=== PATIENT | female | born 1955 | race Asian ===

== ENCOUNTER 2018-12-31 11:52 | Emergency (ER) | payer BC ==
[~2018-12-31] VITALS: Ht 154.9 cm; Wt 49.4 kg
[2018-12-31 12:01] VITALS: Ht 154.9 cm; Wt 49.4 kg
[2018-12-31 13:28] LABS: PLATELET COUNT 313 x10^3mcL (130-400)
[2018-12-31 13:47] LABS: ALBUMIN 3.4 g/dL (3.4-5.0); ALKALINE PHOSPHATASE 120 U/L (46-116); ALT/SGPT 16 U/L (14-59); AST/SGOT 10 U/L (15-37); BILIRUBIN TOTAL 0.6 mg/dL (0.20-1.00); C REACTIVE PROTEIN 11.2 mg/dL (<=0.9); CALCIUM 8.4 mg/dL (8.5-10.1); CARBON DIOXIDE 20.8 mmol/L (21-32); CHLORIDE SERUM 96 mmol/L (98-107); CREATININE SERUM 0.7 mg/dL (0.6-1.0); GFR1 > 60 mL/min; GLUCOSE SERUM 248 mg/dL (74-106); SODIUM SERUM 134 mmol/L (136-145); TOTAL PROTEIN, SERUM 7.5 g/dL (6.4-8.2)
[2018-12-31 13:48] LABS: BASOPHIL % 0 % (0-2); RED CELL DISTRIBUTION WIDTH 15.9 % (11.5-14.5)
[2018-12-31 13:52] LABS: FREE T4 1.41 ng/dL (0.76-1.46); FREE THYROXINE INDEX 3.9 ug/dL (1.4-4.5); T4(THYROXINE) 9.9 ug/dL (4.7-13.3)
[2018-12-31 13:56] LABS: CK-MB 0.5 ng/mL (0-3.6)
[2018-12-31 14:06] LABS: T3 TOTAL 0.65 ng/mL
[2018-12-31 16:03] LABS: ERYTHROCYTE SED RATE 29 mm/hr (0-30)
[2018-12-31 16:21] LABS: microscopic required? NO
[2018-12-31 17:00] LABS: UA SPECIFIC GRAVITY 1.025 (1.005-1.035); urine erythrocyte NEGATIVE (NEGATIVE)
[2018-12-31 18:03] VITALS: BP 128/69
== END 2018-12-31 18:03 | disposition home or self-care (01) ==
LOC: ED 11:52
PROVIDERS: Specialist
DX: R11.2 Nausea with vomiting, unspecified (principal); R19.7 Diarrhea, unspecified; E86.0 Dehydration; E87.6 Hypokalemia; I10 Essential (primary) hypertension; E11.9 Type 2 diabetes mellitus without complications; Z88.6 Allergy status to analgesic agent
CPT/HCPCS: 36600; 84439; 87804; J2550; J3480; J7030; J7050; Q0092

== ENCOUNTER 2019-01-03 04:56 | Inpatient (IN) | payer BC ==
[~2019-01-03] VITALS: Ht 154.9 cm; Wt 49.5 kg
--- NOTE | 2019-01-03 05:27 | NUR ---
PT CAME TO THE ED TODAY WITH C/O VOMITING, PT WAS SEEN IN THIS ED ON TUESDAY FOR VOMITING ALSO. PT STATES THAT SHE IS USING HER ZOFRAN AT HOME BUT IS UNABLE TO TOLERATE FOOD. PT IS ALERT AND AMBULATORY. WILL MONITOR.
[2019-01-03 06:53] LABS: PLATELET COUNT 348 x10^3mcL (130-400)
[2019-01-03 07:12] LABS: ALKALINE PHOSPHATASE 107 U/L (46-116); ALT/SGPT 18 U/L (14-59); AST/SGOT 10 U/L (15-37); BILIRUBIN TOTAL 0.45 mg/dL (0.20-1.00); CALCIUM 8.5 mg/dL (8.5-10.1); CHLORIDE SERUM 102 mmol/L (98-107); CREATININE SERUM 0.8 mg/dL (0.6-1.0); GFR1 > 60 mL/min; GLUCOSE SERUM 326 mg/dL (74-106); POTASSIUM SERUM 3.2 mmol/L (3.5-5.1); SODIUM SERUM 137 mmol/L (136-145)
[2019-01-03 07:27] LABS: ALBUMIN 3.2 g/dL (3.4-5.0)
[2019-01-03 07:30] LABS: BASOPHIL % 0 % (0-2); RED CELL DISTRIBUTION WIDTH 17.1 % (11.5-14.5)
--- NOTE | 2019-01-03 07:30 | NUR ---
ASSUMED PATIENT CARE. CONCUR TO PRIOR NURSING ASSESSMENTS. STARTED ON CARDIAC MONITORING, ENFORCED SAFETY PRECAUTIONS, FAMILY AT BEDSIDE. UPDATED THEM OF PLAN OF CARE AND STATUS OF TREATMENT.
[2019-01-03 07:36] LABS: CARBON DIOXIDE 7.8 mmol/L (21-32)
[2019-01-03 08:54] LABS: FREE T4 1.09 ng/dL (0.76-1.46); FREE THYROXINE INDEX 2.8 ug/dL (1.4-4.5)
[2019-01-03 09:10] LABS: T3 TOTAL 0.44 ng/mL
--- NOTE | 2019-01-03 09:53 | NUR ---
DISPO AND MEDICAL DECISION MAKING, INPATIENT ADMISSION FOR FURTHER MANAGEMENT. PATIENT CARE REPORT ENDORSED TO RADHA DILL. CONTINUITY OF CARE ENDORSED. PATIENT UPDATED ACCORDINGLY.
--- NOTE | 2019-01-03 10:15 | NUR ---
PATIENT BROUGHT IN BY NURSE AND EMT, FROM ER, VIA GURNEY. PATIENT IS BREATHING ADEQUATELY AND THERE ARE NO SIGNS OF RESPIRATORY DISTRESS. ELECTRON BEAM PHOTO MASK MAKER IN PLACE, NSR. ABDOMEN IS ROUND AND SOFT. PATIENT HASN'T HAD A BM, SINCE LAST NIGHT. PATIENT IS ABLE TO GET UP AND USE THE RESTROOM WITH ASSISTANCE. R AC AND R HAND IVS ARE INTACT. SKIN IS INTACT. V/S: HR: 96 RESP.: 16 TEMP: 98.4 B/P: 157/75 MAP: 104 O2: 100% PATIENT IS CALM AND COOPERATIVE. CALL LIGHT WITHIN REACH, WILL CONTINUE TO MONITOR.
--- NOTE | 2019-01-03 11:00 | NUR ---
ASSISTED PATIENT UP TO USE THE RESTROOM. NO PROBLEMS NOTED, WILL CONT TO MONITOR.
--- NOTE | 2019-01-03 11:02 | NUR ---
PATIENTS BLOOD SUGAR: 190. PER PROTOCOL, CHANGED PATIENT TO D5 1/2 NS AT 150 ML/HR AND LOWERED INSULIN DRIP TO 0.05 UNITS/KG/HR. PATIENT STABLE, WILL CONTINUE TO MONITOR.
--- NOTE | 2019-01-03 11:52 | NUR ---
PATIENTS B/S: 234. TURNED OFF D5 1/2 NS AND INCREASED INSULIN TO 0.1 UNITS/KG/HR. PATIENT STABLE WILL CONTINUE TO MONITOR.
[2019-01-03 12:12] VITALS: BP 157/75
[2019-01-03 12:52] VITALS: BP 148/73
[2019-01-03 12:52] LABS: CALCIUM 7.7 mg/dL (8.5-10.1); CARBON DIOXIDE 13.3 mmol/L (21-32); CHLORIDE SERUM 109 mmol/L (98-107); CREATININE SERUM 0.6 mg/dL (0.6-1.0); GFR1 > 60 mL/min; GLUCOSE SERUM 226 mg/dL (74-106); POTASSIUM SERUM 3.1 mmol/L (3.5-5.1); SODIUM SERUM 141 mmol/L (136-145)
--- NOTE | 2019-01-03 14:06 | NUR ---
PATIENT B/S: 190. LOWERED INSULIN TO 0.05 UNITS/KG/HR. AND TURNED ON D5 1/2 NS, RUNNING AT 150 ML/HR. PATIENT STABLEM CALL LIGHT WITHIN REACH, WILL CONTINUE TO MONITOR.
--- NOTE | 2019-01-03 14:12 | NUR ---
ASSISTED PATIENT UP TO USE THE RESTROOM. NO PROBLEMS NOTED, WILL CONT TO MONITOR.
--- NOTE | 2019-01-03 14:56 | NUR ---
PATIENTS B/S: 203. STOPPED D5 1/2 NS AND INCREASED INSULIN TO 0.1 UNITS/KG/HR. PATIENT STABLE, WILL CONT TO MONITOR.
[2019-01-03 15:30] VITALS: BP 147/68
--- NOTE | 2019-01-03 15:57 | NUR ---
PATIENTS B/S: 191. LOWERED INSULIN TO 0.05 UNITS/KG/HR, PER PROTOCOL. AND D5 1/2 NS INFUSING AT 100 ML/HR. PATIENT STABLE, WILL CONT TO MONITOR.
[2019-01-03 16:14] LABS: CALCIUM 7.6 mg/dL (8.5-10.1); CARBON DIOXIDE 16.3 mmol/L (21-32); CHLORIDE SERUM 109 mmol/L (98-107); CREATININE SERUM 0.7 mg/dL (0.6-1.0); GFR1 > 60 mL/min; GLUCOSE SERUM 190 mg/dL (74-106); MAGNESIUM 1.9 mg/dL (1.8-2.4); SODIUM SERUM 143 mmol/L (136-145)
[2019-01-03 16:55] LABS: PHOSPHOROUS 0.5 mg/dL (2.5-4.9); POTASSIUM SERUM 2.4 mmol/L (3.5-5.1)
--- NOTE | 2019-01-03 16:57 | NUR ---
PATIENTS B/S: 202. INCREASED INSULIN TO 0.1 UNITS/KG/HR. PATIENT STABLE, WILL CONT TO MONITOR. PATIENT ALSO NEEDED TO VOID. ASSISTED PATIENT UP TO VOID.
--- NOTE | 2019-01-03 17:12 | NUR ---
CALLED AYANNA ENGLAND TO INFORM THAT PATIENTS RECENT LAB. K: 2.4 AND PHOS.: 0.5. PER SAMANTA, LET THE CURRENT POTASSIUM FINISH AND WHEN FINISHED, GIVEN 40 MEQ OF POTASSIUM WITH LIDOCAINE. ALSO GIVE 30MMOL OF PHOSPHORUS, NOW.
--- NOTE | 2019-01-03 17:40 | NUR ---
SPOKE WITH SAMANTA, TRANSIT COACH OPERATOR, REGARDING PHARMACIST RECOMMENDATION OF DOING LAB DRAW AFTER PHOSPHORUS IV. SAMANTA STATES " FINISH K RIDER, HAVE LAB DRAWN, START PHOSPHORUS, AND NOTIFY HER OF POTASSIUM LAB, WHEN RECEIVED" FURTHER ORDERS WILL BE GIVEN THEN.
--- NOTE | 2019-01-03 17:49 | NUR ---
PATIENTS B/S: 161, DECREASED INSULIN DRIP TO 0.05 UNITS/KG/HR. INCREASED D5 1/2 NS TO 150 ML/HR. PATIENT STABLE, WILL CONT TO MONITOR.
--- NOTE | 2019-01-03 18:48 | NUR ---
PATIENTS B/S: 212. INCREASED INSULIN TO 0.1 UNITS/KG/HR, D5 1/2 NS OFF PER PROTOCOL. PT STABLE, WILL CONT. TO MONIOTR.
--- NOTE | 2019-01-03 19:03 | NUR ---
ASSISTED PATIENT UP TO URINATE. PATIENT VOMITTED ON THE FLOOR. PATIENT VOMMITED GREEN WATERY VOMIT. PATIENT ALSO URINATED A FAIR AMT OF YELLOW URINE. PATIENT WAS ASSISTED IN BED, SAFELY. PATIENT STABLE. WILL CONT. TO MONITOR.
--- NOTE | 2019-01-03 19:13 | NUR ---
REPORT GIVEN TO RADHA VARGAS. ALL QUESTIONS ANSWERED.
--- NOTE | 2019-01-03 19:14 | NUR ---
RECEIVED REPORT FROM DEEPA GARCIA. ASSUMING ALL CARE
--- NOTE | 2019-01-03 19:30 | NUR ---
RECEIVED PT LAYING IN BED. PT IS A/OX4. SPEECH IS CLEAR. ABLE TO MAKE NEEDS KNOWN. PERRLA NOTED BILAT. EENT FREE OF DISCHARGE. ORAL MUCOSA PINK AND MOIST. BREATHING IS E/U ON RA. LUNGS SOUND CLEAR BILAT. SYMMETRICAL CHEST EXPANSION NOTED. S1/S2 HEART SOUNDS AUSCULTATED. CHEST WALL EQUAL AND SYMMETRICAL. DENIES CP HR 87, BP 160/85 MAP 110. PALPABLE PULSES X4 EXTREMITIES. SKIN IS WARM AND DRY. TRACE EDEMA NOTED TO BLE. CAP REFILL < 3 SECS. RH AND RAC IV'S INTACT/SECURED, NO S/S OF INFITLRATION NOTED. INSULIN DRIP INFUSING @ 0.1 UNITS/KG/HR. PT IS NPO AT THIS TIME. PT C/O FEELING NAUSEAS. ABD IS SOFT, ROUND, NONTENDER TO PALPATION. BOWEL SOUNDS ACTIVE X4 QUADRANT. SKIN IS INTACT. PT ABLE TO REPOSITION SELF INDEPENDENTLY. PT IS CALM AT THIS TIME. FAMILY AT BEDSIDE. BED IN LOW POSITION. CALL LIGHT IN REACH. WILL CONT TO MONITOR
--- NOTE | 2019-01-03 19:36 | NUR ---
BS 168. INSULIN DRIP TITRATED TO 0.05 UNITS/KG/HR AND D5 1/2NS RESUMED @ 50 ML/HR
--- NOTE | 2019-01-03 19:36 | NUR ---
PT C/O FEELING NAUSEAS. PT MEDICATED WITH ZOFRAN 4 MG IVP PER EMAR. WILL CONT TO MONITOR
[2019-01-03 19:48] VITALS: BP 160/85
[2019-01-03 20:26] LABS: CARBON DIOXIDE 23.2 mmol/L (21-32); CHLORIDE SERUM 109 mmol/L (98-107); CREATININE SERUM 0.6 mg/dL (0.6-1.0); GFR1 > 60 mL/min; GLUCOSE SERUM 172 mg/dL (74-106); SODIUM SERUM 142 mmol/L (136-145)
[2019-01-03 20:52] LABS: PHOSPHOROUS 0.6 mg/dL (2.5-4.9)
[2019-01-03 20:53] LABS: POTASSIUM SERUM 2.8 mmol/L (3.5-5.1)
--- NOTE | 2019-01-03 21:15 | NUR ---
CRITICAL LAB RESULT- POTASSIUM 2.8, PHOS 0.6. DR. YAO MADE AWARE
--- NOTE | 2019-01-03 22:18 | NUR ---
BS 149. D5 1/2 NS TITRATED TO 100 ML/HR
--- NOTE | 2019-01-03 22:30 | NUR ---
DR. YAO MADE AWARE PT WAS MEDICATED WITH ZOFRAN AND IS STILL FEELING NAUSEAS AND VOMITING. AWARE POTASSIUM TABLET WAS NOT ADMINISTERED. PER DR. YAO, ADMINISTER THE K-RIDER AT THIS TIME. MADE AWARE POTASSIUM PHOSPHATE IS INFUSING AT THIS TIME, PER DR. YAO, OK TO HAVE BOTH INFUSING AT THE SAME TIME.
[2019-01-03 23:33] VITALS: BP 133/73
--- NOTE | 2019-01-03 23:48 | NUR ---
PYTHON WEB DEVELOPER AT BEDSIDE
--- NOTE | 2019-01-04 00:04 | NUR ---
BS 142. D5 1/2 NS TITRATED TO 150 ML/HR
[2019-01-04 00:23] LABS: CALCIUM 7.7 mg/dL (8.5-10.1); CHLORIDE SERUM 109 mmol/L (98-107); CREATININE SERUM 0.6 mg/dL (0.6-1.0); GFR1 > 60 mL/min; GLUCOSE SERUM 154 mg/dL (74-106); MAGNESIUM 1.9 mg/dL (1.8-2.4); PHOSPHOROUS 1.6 mg/dL (2.5-4.9); SODIUM SERUM 142 mmol/L (136-145)
[2019-01-04 00:24] LABS: POTASSIUM SERUM 2.8 mmol/L (3.5-5.1)
--- NOTE | 2019-01-04 01:31 | NUR ---
PT C/O FEELING NAUSEAS. PT MEDICATED WITH ZOFRAN 4 MG IVP PER EMAR
[2019-01-04 03:15] VITALS: BP 105/65
--- NOTE | 2019-01-04 03:30 | NUR ---
ASSISTED PT TO BSC, PT AMBULATED WITH A STEADY GAIT. PT VOIDED CLEAR YELLOW URINE. PT ASSISTED BACK IN BED AND CONNECTED TO FULL CLOTHES SHAKER
--- NOTE | 2019-01-04 04:07 | NUR ---
BS 207. D5 1/2 NS TITRATED TO 100 ML/HR
[2019-01-04 04:45] LABS: BASOPHIL % 0.2 % (0-2); PLATELET COUNT 321 x10^3mcL (130-400)
[2019-01-04 04:53] LABS: CALCIUM 7.7 mg/dL (8.5-10.1); CARBON DIOXIDE 22.4 mmol/L (21-32); CHLORIDE SERUM 109 mmol/L (98-107); CREATININE SERUM 0.5 mg/dL (0.6-1.0); GFR1 > 60 mL/min; GLUCOSE SERUM 204 mg/dL (74-106); MAGNESIUM 1.9 mg/dL (1.8-2.4); PHOSPHOROUS 1.1 mg/dL (2.5-4.9); SODIUM SERUM 142 mmol/L (136-145)
--- NOTE | 2019-01-04 05:01 | NUR ---
BS 254. D5 1/2NS TITRATED TO 50 ML/HR
[2019-01-04 05:02] LABS: RED CELL DISTRIBUTION WIDTH 17.5 % (11.5-14.5)
--- NOTE | 2019-01-04 06:07 | NUR ---
BS 231. D5 1/2NS TURNED OFF AT THIS TIME
--- NOTE | 2019-01-04 06:53 | NUR ---
PT MEDICATED WITH ZOFRAN IVP PER EMAR, PT C/O FEELING NAUSEAS
--- NOTE | 2019-01-04 06:59 | NUR ---
BS 133. D5 1/2 NS TITRATED TO 100 ML/HR
--- NOTE | 2019-01-04 07:05 | NUR ---
REPORT GIVEN TO DEEPA GARCIA. ENDORSING ALL CARE
--- NOTE | 2019-01-04 07:15 | NUR ---
REPORT GIVEN BY RADHA VARGAS. ALL QUESTIONS ANSWERED.
[2019-01-04 07:18] VITALS: Ht 154.9 cm; Wt 49.5 kg
--- NOTE | 2019-01-04 07:20 | NUR ---
PATIENT IS IN BED RESTING. BED IS TO THE LOWEST POSITION. PATIENT IS BREATHING ADEQUATELY AND THERE IS NO RESPIRATORY DISTRESS NOTED. BATON TWIRLER IN PLACE, NSR. ABDOMEN IS ROUND AND SOFT. NO BM PER GENERATION MECHANIC HELPER. PATIENT IS ABLE TO GET UP AND VOID PER NIGHT NURSE. SKIN IS INTACT. PATIENT IS CALM AND COOPERATIVE, AND ABLE TO FOLLOW COMMANDS. CALL LIGHT IS WITHIN REACH, WILL CONTINUE TO MONITOR.
[2019-01-04 07:38] VITALS: BP 146/86
--- NOTE | 2019-01-04 08:13 | NUR ---
B/S: 122. INCREASED D5 1/2 NS TO 200 ML/HR PER PROTOCOL. INSULIN REMAINS AT 0.05 UNITS/KG/HR PATIENT STABLE, WILL CONTINUE TO MONITOR.
[2019-01-04 08:26] LABS: CALCIUM 8.3 mg/dL (8.5-10.1); CHLORIDE SERUM 107 mmol/L (98-107); CREATININE SERUM 0.5 mg/dL (0.6-1.0); GFR1 > 60 mL/min; GLUCOSE SERUM 115 mg/dL (74-106); MAGNESIUM 1.8 mg/dL (1.8-2.4); SODIUM SERUM 142 mmol/L (136-145)
--- NOTE | 2019-01-04 09:15 | NUR ---
PATIENT NEEDED TO USE THE RESTROOM, ASSISTED PATIENT UP OUT OF BED TO VOID. PATIENT STABLE, WILL CONT TO MONITOR.
--- NOTE | 2019-01-04 09:25 | NUR ---
APPLIED SCDS TO PATIENT.
--- NOTE | 2019-01-04 09:25 | NUR ---
PATIENT ASKED FOR WIPES TO FRESHEN UP. PATIENT WAS PROVIDED WIPES, AND ASSISTANCE. PATIENT STABLE. WILL CONT TO MONITOR.
--- NOTE | 2019-01-04 10:58 | NUR ---
PATIENTS B/S: 189. INSULIN REMAINS INFUSING AT 0.05 UNITS/KG/HR. D5 1/2 NS INFUSING AT 150 ML/HR. PATIENT STABLE, WILL CONT TO MONITOR.
[2019-01-04 11:22] VITALS: BP 145/76
[2019-01-04 12:01] LABS: CARBON DIOXIDE 29.7 mmol/L (21-32); CHLORIDE SERUM 105 mmol/L (98-107); CREATININE SERUM 0.5 mg/dL (0.6-1.0); GFR1 > 60 mL/min; GLUCOSE SERUM 177 mg/dL (74-106); MAGNESIUM 1.7 mg/dL (1.8-2.4); SODIUM SERUM 140 mmol/L (136-145)
[2019-01-04 12:23] LABS: POTASSIUM SERUM 2.7 mmol/L (3.5-5.1)
[2019-01-04 12:24] LABS: PHOSPHOROUS 0.7 mg/dL (2.5-4.9)
--- NOTE | 2019-01-04 12:31 | NUR ---
SPOKE WITH AYANNA ENGLAND, TO INFORM THAT THE PATIENTS GAP HAS BEEN CLOSED X2. SAMANTA ALSO NOTIFIED THAT PHOSPHORUS IS 0.7 AND POTASSIUM IS 2.7. PER SAMANTA: HAVE THE PATIENT EAT, AND SHE WILL PUT IN ORDERS FOR POTASSIUM AND PHOSPHORUS.
--- NOTE | 2019-01-04 13:28 | NUR ---
PATIENTS FOOD TRAY ARRIVED. ASSISTED PATIENT UP IN BED TO EAT. NO PROBLEMS SWALLOWING. WILL CONT TO MONITOR.
--- NOTE | 2019-01-04 14:04 | NUR ---
CALLED [facility] ENGL[facility] TO NOTIFY TO ORDER THE LANTUS INSULIN FOR TODAY, AND ADD SLIDING SCALE. PER SAMANTA: WILL CHANGE ORDER AND SLIDING SCALE WILL BE ADDED FOR REGULAR INSULIN.
[2019-01-04 14:55] LABS: BASOPHIL % 0.2 % (0-2); PLATELET COUNT 360 x10^3mcL (130-400)
[2019-01-04 15:01] LABS: CALCIUM 7.7 mg/dL (8.5-10.1); CARBON DIOXIDE 27.9 mmol/L (21-32); CHLORIDE SERUM 102 mmol/L (98-107); CREATININE SERUM 0.4 mg/dL (0.6-1.0); GFR1 > 60 mL/min; GLUCOSE SERUM 209 mg/dL (74-106); POTASSIUM SERUM 3.1 mmol/L (3.5-5.1); SODIUM SERUM 136 mmol/L (136-145)
--- NOTE | 2019-01-04 15:30 | NUR ---
PATIENT CLOSED GAP X2. TURNED OFF INSULIN DRIP AND D5 1/2 NS AT THIS TIME. PT STABLE, WILL CONTINUE TO MONITOR.
[2019-01-04 15:31] LABS: rbc morphology (normal/abnorm) ABNORMAL (NORMAL)
[2019-01-04 15:52] VITALS: BP 121/74
--- NOTE | 2019-01-04 16:48 | NUR ---
PATIENT WAS ASSISTED TO VOID. UPON VOIDING, PATIENT VOMITTED. PATIENT VOMMITED 50 ML OF YELLOW LIQUID, URINE WAS YELLOW IN COLOR WITH FAIR AMT. PATIENT STABLE. PATIENT WAS ASKED IF THEY WANTED ZOLFRAN. PER PATIENT: "NO, I AM OK, I WILL WAIT" WILL CONTINE TO MONITOR.
--- NOTE | 2019-01-04 18:25 | NUR ---
PATIENT VOMITTED 20 ML OF CLEAR VOMIT. PATIENT WAS ASSISTED, ZOLFRAN WAS GICEN (SEE EMAR) PATIENT STABLE. WILL CONTINUE TO MONITOR.
--- NOTE | 2019-01-04 19:08 | NUR ---
REPORT GIVEN TO RADHA PATEL. ALL QUESTIONS ANSWERED.
[2019-01-04 19:15] VITALS: BP 136/71
--- NOTE | 2019-01-04 19:15 | NUR ---
RECEIVED PT AOX4 ABLE TO RESPOND TO COMMANDS MAKE NEEDS KNOWN. GCS=15, PUPILS 4MM BRISK RESPONSE TO LIGHT BILATERALLY, NO REPORTED TEE, SPEECH CLEAR, NO FACIAL DROOP.TRACHEA MIDLINE, NO DRAINAGE TO EENT, NO EENT COMPLAINTS.LUNG SOUNDS CTAB, CHEST RISE/FALL SYMMETRIC, E/U BREATHING, NO ACUTE RESP DISTRESS, DENIES SOB.S1/S2 SOUNDS HEARD, CHEST WALL STABLE, NO S/S OR REPORT OF CHEST PAIN. PT ON FULL STRAP MAKING MACHINE OPERATOR.SKIN COLOR CONSISTENT WITH ETHNICITY, CAP REFILL <3 SECONDS X4, PULSES MODERATE X4 EXTREMITIES, NO EDEMA, SCD'S INTACT. NS INFUSING @ 100 ML/HR.GEN WEAKNESS, ROM ACTIVE, NO CONTRACTURES/DEFORMITIES, PT ABLE TO TURN AND REPOSITION SELF Q2H. NO JOINT SWELLING/TENDERNESS.PT ON CCHO DIET. NO S/S OR REPORT OF N/V AT THIS TIME.ACTIVE BOWEL SOUNDS X4 QUADRANTS, ABD SOFT/ROUND/NONDISTENDED. NO BM NOTED. PT REPORTS ABD DISCOMFORT AT THIS TIME ON PALPATION.PT ABLE TO VOID FREELY USING BEDSIDE COMMODE, CLEAR YELLOW URINE NOTED. PT DENIES ANY VAGINAL DISCHARGE OR EDEMA.SKIN WARM/DRY TO TOUCH, INTACT. IV TO RIGHT AC, RIGHT HAND, PORTS PATENT, NO S/S OF OF INFILTRATION, DRESSING CDI. FAMILY SUPPORTIVE AT BEDSIDE, UPDATED ON POC. HOB ELEVATED HIGH FOWLERS PER PT COMFORT, BED AT LOWEST SETTING, CALL LIGHT WITHIN REACH. WILL CONT TO MONITOR.
[2019-01-04 23:05] VITALS: BP 135/74
--- NOTE | 2019-01-04 23:05 | NUR ---
PT REPORTING LOWER ABD DISCOMFORT/CRAMPING IN QUALITY. PT DENIES ANY PAIN TO SITE, DENIES NAUSEA WHEN ASKED. DR. ALMAZAN MADE AWARE AT NURSING STATION.
--- NOTE | 2019-01-05 01:25 | NUR ---
ASSISTED PT TO BEDSIDE COMMODE, PT VOIDED CLEAR YELLOW URINE APPROX 200 ML'S. SUE ASSISTED PATIENT BACK TO BED, PT REPORTING LOWER ABD DISCOMFORT BUT CANNOT GIVE A NUMERIC NUMBER FOR PAIN SCALE. PT DENIES ANY NAUSEA AT THIS TIME WHEN ASKED. WHEN OFFERRED PAIN MEDICATION, PT STATES "I WILL TALK TO THE DOCTOR IN THE MORNING. I HAVENT EATEN WELL, THERES NOTHING IN MY STOMACH".
[2019-01-05 03:03] VITALS: BP 138/73
--- NOTE | 2019-01-05 03:54 | NUR ---
PT REFUSING IVF AT THIS TIME, PT STATES "I FEEL LIKE IT WILL CAUSE MORE DISCOMFORT TO MY STOMACH." EDUCATION PROVIDED TO PATIENT ON NORMAL SALINE IVF, DR. ALMAZAN MADE AWARE PAGED. ENCOURAGED PT TO DRINK H20 FLUIDS AT THIS TIME.
[2019-01-05 05:16] LABS: BASOPHIL % 0.3 % (0-2); PLATELET COUNT 304 x10^3mcL (130-400)
[2019-01-05 05:19] LABS: RED CELL DISTRIBUTION WIDTH 16.7 % (11.5-14.5)
[2019-01-05 05:33] LABS: CALCIUM 8.4 mg/dL (8.5-10.1); CARBON DIOXIDE 27.5 mmol/L (21-32); CHLORIDE SERUM 100 mmol/L (98-107); CREATININE SERUM 0.4 mg/dL (0.6-1.0); GFR1 > 60 mL/min; GLUCOSE SERUM 243 mg/dL (74-106); PHOSPHOROUS 1.3 mg/dL (2.5-4.9); POTASSIUM SERUM 3.4 mmol/L (3.5-5.1); SODIUM SERUM 138 mmol/L (136-145)
--- NOTE | 2019-01-05 07:15 | NUR ---
GAVE REPORT TO RADHA WOOD. UPDATES GIVEN, QUESTIONS ANSWERED.
--- NOTE | 2019-01-05 08:30 | NUR ---
PATIENT ASSISTED TO BEDSIDE COMMODE. PATIENT C/O RLQ ABDOMINAL PAIN. SAMANTA URENA MADE AWARE. NEW ORDERS RECEIVED. WILL CARRY OUT ORDERS.
--- NOTE | 2019-01-05 10:25 | NUR ---
0800 assessed pt, c/o rlq nelson with no fever, pt also states diarrhea a few weeks ago but no stool since tuesday or , pt also says all food gets thrown up/pt SURGEON/PRESIDENT aware/ordered suppository which pt administered to self/pt afebrile, bp/hr stable, pt tried to eat breakfast and maybe ate 10% PT OTHERWISE DOES NOT APPEAR IN DISTRESS/02 SAT 99% ON R/A/ MW
--- NOTE | 2019-01-05 16:21 | NUR ---
Initial Nutrition Assessment- Deborah Pia Ferrera Dx: Diabetic Ketoacidosis PMHx: HTN, DM PSHx: None Labs: Na 138, K 3.4L, Glucos 243H, Creat 0.4L, Ca 8.4L, Phos 1.3L, A1c 13.0H (01/03/19) Meds: Colace, Dextrose 50% water Abbot, Dulcolax, Humulin, Lantus, Magnesium Solfate in Sodium Chloride 0.9%, Neutra-phos packet, Precision PCX Blood Glucose strips, Protonix packet, Sodium Chloride 0.9%, Zofran Diet: CCHO PO Intake: 01/04/19 lunch 25%, dinner 0% Ht: 154.94cm, 61in Wt: 49.5kg, 108# BMI: 20.6kg/m2 Normal Bed scale: pt was not in bed IBW: 110# %IBW: 98% UBW: 115-117# Age: 63 Food Allergies: Shellfish Skin: Intact Prateek: 18 Edema: None GI: Last BM 1 01/05/19 Pt Visit: Pt was out of bed and trying to walk around, but was tired. She didn't want to talk much. Pt wanted me to leave NCM education packets on her chair and she quickly answered my questions. Per H&P: Pt has diabetes, recently evaluated on 12/31/18 in this ED for symptoms of dizziness/nausea/vomiting/diarrhea who presents today for persistent vomiting. Has had symptoms for 1 week, severe, constant, improves with zofran. Initially states she had watery stools and abdominal pain which have since resolved. Now she has residual nausea with vomiting; she presents today because she was told her potassium was low last time and she is unable to eat bananas though she has been able to take small amounts of food now with zofran. Problem with: N: No V: No D: No C: Yes Problems with: Chewing: None Swallowing: None Current appetite: Poor Recent wt change: per pt. feels she has lost a little wt. but unsure how much %wt change: N/A Vitamin/Supplement use: was taking a mutli-vit. 1x/day qd Special diet at home: None Physical activity: None Education: Gave NCM packet titled Low Sodium Nutrition Therapy and Type 2 Diabetes Nutrition Therapy. Pt was too tired to talk about the education, left the packets on her chair near her bed per her request. Let pt know the importance of both diets and offered Glucerna. Estimated Nutritional Needs Based on actual body weight 49.5 kg Energy: 1237-1485kcal/d (25-30kcal/kg) (due to normal BMI and age) Protein: 49-59g/d (1.0-1.2g/kg)( due to normal BMI and age) Fluid: 1138-1237ml/d (1 ml/kcal) Nutrition Diagnosis Food and nutrition-related knowledge deficit r/t lack of prior exposure to accurate nutrition-related information aeb verbally acknowledging she follows a regular diet at home. Intervention 1. Continue with CCHO diet. 2. Offer Glucerna 8oz, 2x a day, one between breakfast and lunch and one between lunch and dinner Monitor/Evaluate Goal: PO intake at least 70% of estimated needs Monitor: PO intake, Labs, Tolerance of diet F/U in 01/08-01/10
--- NOTE | 2019-01-05 16:23 | NUR ---
Intervention 1. Continue with [facility] diet. 2. Offer Glucerna 8oz, 2x a day, one between breakfast and lunch and one between lunch and dinner
--- NOTE | 2019-01-05 16:40 | NUR ---
Spoke with LEAD WELDER Bassem about adding Glucerna BID to diet and she confirmed.
--- NOTE | 2019-01-05 17:26 | NUR ---
PT BS NOW 98 AT 1725-NO INSULIN GIVEN AND PT INSTRUCTED TO EAT WHICH PT DID/PT STILL HAS NOT HAD BM TODAY, THOUGH GIVEN COLACE AND SUPPOSITORIES/VS STABLE, CONDITION APPEARS STABLE, NO FEVER/NO ISSUES/CALLED IN REPORT TO PT RADHA KLEIN AT EXT 4000//MW
--- NOTE | 2019-01-05 19:10 | NUR ---
RC'D PT VIA BED FROM ICU ALICE. A/A/O/X4, SPEECH CLEAR AND APPROPRIATE. DENIES TEE/DIZZINESS. MEDSURG. DENIES CHEST PAIN/PRESSURE. RESPIRATIONS EQUAL AND UNLABORED. ON RA, DENIES SOB. PT C/O OF RIGHT SIDED ABDOMINAL DISCOMFORT. SKIN CDI. IV PATENT AND INTACT. BED IN LOW POSITION. CALL LIGHT IN REACH. WILL CONTINUE TO MONITOR
--- NOTE | 2019-01-05 19:25 | NUR ---
PT AAO X 4. NO S/SX OF PAIN OR DISCOMFORT AT THIS TIME. NO SOB OR RESPIRATORY DISTRESS NOTED. BREATHING EVEN AND UNLABORED. LUNG SOUNDS CLEAR TO AUSCULTATION. PT HAS IV FLUIDS OF 100CC/HR TO R HAND, NO INFILTRATION OR PHLEBITIS NOTED TO IV SITE. PT IS AMBULATORY. SKIN DRY AND INTACT. PULSES PALPABLE. BS ACTIVE X 4. NO N/V NOTED. BED IN LOW POSITION. CALL LIGHT WITHIN REACH. WILL CONTINUE TO MONITOR.
--- NOTE | 2019-01-05 19:25 | NUR ---
PT IS AAO X 4. SPEECH CLEAR. NO S/SX OF PAIN OR DISCOMFORT AT THIS TIME. NO SOB OR RESPIRATORY DISTRESS NOTED AT THIS TIME. PT ON RA. BREATH SOUNDS CLEAR TO AUSCULTATION. PULSES PALPABLE. CAP REFILL <3 SEC. NO EDEMA NOTED. PT IS AMBULATORY AND VOIDS FREELY. NO N/V NOTED. PT HAS NS @100ML/HR TO R HAND WITH NO S/SX OF INFILTRATION OR PHLEBITIS NOTED. BED IN LOW POSITION. CALL LIGHT WITHIN REACH. WILL CONTINUE TO MONITOR.
--- NOTE | 2019-01-05 19:34 | NUR ---
RECEIVED REPORT FROM ERNIE GARCIA. WILL CONTINUE TREATMENT AND CARE.
[2019-01-05 21:27] VITALS: BP 121/69
--- NOTE | 2019-01-06 03:36 | NUR ---
PT STATES HAVING A SMALL SOFT BM. NO PAIN OR DISCOMFORT NOTED AT THIS TIME.
[2019-01-06 06:20] VITALS: BP 154/67
--- NOTE | 2019-01-06 06:52 | NUR ---
NO ACUTE CHANGES IN PT CONDITION DURING SHIFT. NO SOB OR RESPIRATORY DISTRESS NOTED. PT SLEPT COMFORTABLY THROUGHOUT NIGHT. PT HAD SOME ABDOMINAL TENDERNESS. PT STATES SHE HAD ONE EPISODE OF EMESIS THIS AM, SMALL AMOUNT. IV FLUIDS CONTINUES TO RUN NS AT 100CC/HR TO R HAND 22G WITH NO S/SX OF INFILTRATION OR PHLEBITIS NOTED. PT ABLE TO ABULATE TO RESTROOM WITH STEADY GAIT. PT HAD SMALL LOOSE BM X 1 DURING SHIFT. ALL NEEDS MET AND ANTICIPATED. BED IN LOW POSITION. CALL LIGHT WITHIN REACH. WILL ENDORSE TO ONCOMING RN.
--- NOTE | 2019-01-06 07:12 | NUR ---
GAVE REPORT TO BRIAN GARCIA. ALL QUESTIONS AND CONCERNS ADDRESSED.
[2019-01-06 09:38] VITALS: BP 136/66
[2019-01-06 10:52] LABS: CALCIUM 7.9 mg/dL (8.5-10.1); CARBON DIOXIDE 28.8 mmol/L (21-32); CHLORIDE SERUM 101 mmol/L (98-107); CREATININE SERUM 0.4 mg/dL (0.6-1.0); GFR1 > 60 mL/min; GLUCOSE SERUM 259 mg/dL (74-106); MAGNESIUM 1.9 mg/dL (1.8-2.4); PHOSPHOROUS 2.7 mg/dL (2.5-4.9); POTASSIUM SERUM 4.3 mmol/L (3.5-5.1); SODIUM SERUM 135 mmol/L (136-145)
[2019-01-06 11:07] LABS: PLATELET COUNT 314 x10^3mcL (130-400)
[2019-01-06 11:10] LABS: BASOPHIL % 0 % (0-2); RED CELL DISTRIBUTION WIDTH 16.8 % (11.5-14.5)
[2019-01-06 17:08] VITALS: BP 136/66
== END 2019-01-06 18:17 | disposition home or self-care (01) | DRG 639 ==
LOC: ED 04:56 → IC 08:07 → MU 01-05 18:50
PROVIDERS: Emergency Medicine; General Practice; ADMIT Internal Medicine
DX: E11.10 Type 2 diabetes mellitus with ketoacidosis without coma (principal); E86.0 Dehydration; E87.6 Hypokalemia; E83.39 Other disorders of phosphorus metabolism; I10 Essential (primary) hypertension; Z79.84 Long term (current) use of oral hypoglycemic drugs; Z88.6 Allergy status to analgesic agent; Z91.11 Patient's noncompliance with dietary regimen; Z91.14 Patient's other noncompliance with medication regimen
CPT/HCPCS: 36600; 82962; 83880; 84439; J1200; J1815; J2405; J3475; J3480; J3490; J7030; Q0092

== ENCOUNTER 2019-01-14 06:51 | Inpatient (IN) | payer BC ==
[~2019-01-14] VITALS: Ht 154.9 cm; Wt 50.3 kg
[2019-01-14 06:55] VITALS: Ht 154.9 cm; Wt 50.3 kg
--- NOTE | 2019-01-14 07:23 | NUR ---
DR PACK AT BEDSIDE FOR MSE. PT HERE FOR C/O ABD PAIN THROUGHOUT ANT ABD FOR APPROX 1 WK POST DC FROM HOSPITAL WITH WORSENING PAIN YESTERDAY NIGHT. PT REPORTS CONSTIPATED FOR APPROX 4-5 DAYS AND ALSO HAS HAD POOR APPETITE SINCE DC.
[2019-01-14] MEDS ORDERED: METFORMIN500 M1 PO (07:40)
--- NOTE | 2019-01-14 07:57 | NUR ---
PT REPORTS FEELING BETTER. LIGHTS OFF FOR COMFORT. WARM BLANKTES GIVEN
[2019-01-14 08:02] LABS: BASOPHIL % 0 % (0-2); PLATELET COUNT 575 x10^3mcL (130-400); RED CELL DISTRIBUTION WIDTH 17.3 % (11.5-14.5)
[2019-01-14 08:14] LABS: CALCIUM 8.5 mg/dL (8.5-10.1); CHLORIDE SERUM 94 mmol/L (98-107); CREATININE SERUM 0.6 mg/dL (0.6-1.0); GFR1 > 60 mL/min; GLUCOSE SERUM 366 mg/dL (74-106); POTASSIUM SERUM 3.6 mmol/L (3.5-5.1); SODIUM SERUM 133 mmol/L (136-145)
[2019-01-14 08:18] LABS: ALKALINE PHOSPHATASE 112 U/L (46-116); ALT/SGPT 66 U/L (14-59); AST/SGOT 43 U/L (15-37); BILIRUBIN TOTAL 0.5 mg/dL (0.20-1.00); LIPASE 130 IU/L (73-393); TOTAL PROTEIN, SERUM 6.2 g/dL (6.4-8.2)
[2019-01-14 08:20] LABS: ALBUMIN 2.8 g/dL (3.4-5.0)
--- NOTE | 2019-01-14 08:25 | NUR ---
TAKEN TO CT SCAN VIA DRAKE
--- NOTE | 2019-01-14 09:40 | NUR ---
DR PACK SPOKE WITH PT REGARDING TEST RESULTSA ND POC
--- NOTE | 2019-01-14 09:45 | NUR ---
PLACED TO LOW INTERMITTENT SUCTION. BROWNISH GASTRIC CONTENT SEEN
--- NOTE | 2019-01-14 09:59 | NUR ---
REPORT GIVEN TO KEISHA RECEIVING NURSERY HELPER
[2019-01-14 10:53] VITALS: BP 105/63
--- NOTE | 2019-01-14 11:33 | NUR ---
PT ARRIVED FROM ED TO ROOM 244 AT 1020. PT ASSESSED, ASSESSMENT DOCUMENTED IN CHART. PT REPORTS ABD PAIN 6/10 AT THIS TIME, NG TUBE IN PLACE WITH LOW INTER SUCTION. PT IN NAD AT THIS TIME, WILL CONTINUE TO MONITOR.
[2019-01-14 11:58] LABS: IRON 19 ug/dL (50-170); TOTAL IRON BINDING CAPACITY 246 ug/dL (250-450)
--- NOTE | 2019-01-14 18:25 | NUR ---
PT GIVEN FLEET ENEMA AT THE BEDSIDE. PT TOLERATED PROCEDURE WELL, ADVISED TO CALL NURSE FOR ASSIST TO THE RESTROOM. BEDSIDE COMODE PUT NEXT TO BED FOR PT TO USE WELL. PT VERBALIZED UNDERSTANDING. PT TOLERATED TREATMENT WELL DURING THE SHIFT, HOURLY ROUNDING COMPLETED, WILL REPORT TO PIPE WRAPPING MACHINE OPERATOR NURSE AND ENDORSE CARE AT 1900.
[2019-01-14 18:46] VITALS: BP 112/70
--- NOTE | 2019-01-14 19:45 | NUR ---
CARE ASSUMED FROM OUTGOING RN. PT RESTING COMFORTABLY IN BED. AAOX4. NO ACUTE DISTRESS NOTED. NO SOB NOTED ON RA. STATES 3/10 CRAMPING STOMACH PAIN. REFUSED PAIN MEDICATION AT THIS TIME. PROVIDED PT COMFORT MEASURES. IV PATENT AND INTACT RUNNING FLUIDS PER EMAR. BED IN LOWEST POSITION. CALL LIGHT WITHIN REACH. WILL CONTINUE TO MONITOR.
--- NOTE | 2019-01-14 20:00 | NUR ---
NGT IN PLACE CONNECTED TO LIS. GREEN OUTPUT NOTED. PT TOLERATING WELL. BED IN LOWEST POSITION. CALL LIGHT WITHIN REACH. WILL CONTINUE TO MONITOR.
[2019-01-14 20:45] VITALS: BP 117/63
--- NOTE | 2019-01-14 21:39 | NUR ---
NGT CANNISTER AND TUBING CHANGED. REATTACHED TO LIS. GREEN OUTPUT NOTED. PT TOLERATING WELL. WILL CONTINUE TO MONITOR.
--- NOTE | 2019-01-15 00:28 | NUR ---
PT RESTING COMFORTABLY IN BED. NO ACUTE DISTRESS NOTED. NGT ATTACHED TO LIS WITH GREEN OUTPUT. BED IN LOWEST POSITION. CALL LIGHT WITHIN REACH. WILL CONTINUE TO MONITOR.
[2019-01-15 05:36] VITALS: BP 132/72
[2019-01-15 07:22] LABS: CALCIUM 8.2 mg/dL (8.5-10.1); CARBON DIOXIDE 32.5 mmol/L (21-32); CHLORIDE SERUM 98 mmol/L (98-107); CREATININE SERUM 0.5 mg/dL (0.6-1.0); GFR1 > 60 mL/min; GLUCOSE SERUM 150 mg/dL (74-106); POTASSIUM SERUM 3.1 mmol/L (3.5-5.1); SODIUM SERUM 139 mmol/L (136-145)
[2019-01-15 07:53] LABS: PLATELET COUNT 485 x10^3mcL (130-400); RED CELL DISTRIBUTION WIDTH 17.2 % (11.5-14.5)
[2019-01-15 07:58] LABS: rbc morphology (normal/abnorm) ABNORMAL (NORMAL)
--- NOTE | 2019-01-15 08:24 | NUR ---
AAO TIMES 4. NO TELE. MED SURG PATIENT. LUNGS CTA, DIMINISHED BASES. BS'S HYPOACTIVE. GAVE AN ENEMA AT 0800 IN PREP FOR COLONOSCOPY. PERIPHERAL PULSES PALPABLE. NO EDEMA. LEFT WRIST IV SITE CDI. COOPERATIVE. BOWEL CONTENTS AFTER ENEMA IS A LOT OF MUCOUS, AND A SMALL 1-2" FORMED SOFT BM, BROWN. SHE JUST NOW LEFT FOR GI LAB.
[2019-01-15 09:33] VITALS: BP 126/80
[2019-01-15 10:10] VITALS: BP 149/93
--- NOTE | 2019-01-15 10:29 | NUR ---
BACK FROM GI LAB AT 1010. NGT PUT BACK TO LIS. O2 ON 2L NC. VS'S LISTED IN VS'S GRAPH. NO C/O PAIN. GROGGY, WILL GIVE PO MEDS WHEN MORE AWAKE. IV SITE CDI.
--- NOTE | 2019-01-15 14:45 | NUR ---
CALLED TO AND RELAYED RESULTS OF X-RAY ABD.
[2019-01-15 17:25] VITALS: BP 142/77
--- NOTE | 2019-01-15 17:43 | NUR ---
AAO TIMES 4. IV SITE CDI. NO TELE. NGT DRAINED 200 ML GREENISH FLUID. NO C/O PAIN.
--- NOTE | 2019-01-15 17:53 | NUR ---
TELE # [address] BOX ORDER.
[2019-01-15 19:30] VITALS: BP 130/67
--- NOTE | 2019-01-15 20:01 | NUR ---
RECEIVED PT IN BED WITH VISITOR AT BEDSIDE.AAOX4.NO SOB NOTED. DENIES PAIN AT THIS TIME.NGT TO LIS WITH GREEN OUTPUT.IV SITE PATENT AND INTACT.BSC AT BEDSIDE.BE DIN LOWEST POSITION,CALL LIGHT WITHIN REACH. WILL CONTINUE TO MONITOR.
--- NOTE | 2019-01-15 20:57 | NUR ---
PT C/O ABDOMINAL PAIN 04/18. MEDICATED MORPHINE 1MG IVP ORDERED. WILL CONTINUE TO MONITOR.
--- NOTE | 2019-01-15 21:00 | NUR ---
BS 187. NO COVERAGE.PT NPO FOR PROCEDURE TOMMORROW. DR GRIGGS MADE AWARE.
[2019-01-16 05:02] VITALS: BP 135/77
--- NOTE | 2019-01-16 06:07 | NUR ---
BS 209. NO COVERAGE. PT NPO. DR ROBERSON AWARE.
[2019-01-16 06:50] LABS: PLATELET COUNT 419 x10^3mcL (130-400); RED CELL DISTRIBUTION WIDTH 17.3 % (11.5-14.5)
[2019-01-16 06:57] LABS: CALCIUM 7.7 mg/dL (8.5-10.1); CARBON DIOXIDE 26.5 mmol/L (21-32); CHLORIDE SERUM 100 mmol/L (98-107); CREATININE SERUM 0.4 mg/dL (0.6-1.0); GFR1 > 60 mL/min; GLUCOSE SERUM 227 mg/dL (74-106); PHOSPHOROUS 1.9 mg/dL (2.5-4.9); POTASSIUM SERUM 3.9 mmol/L (3.5-5.1); SODIUM SERUM 136 mmol/L (136-145)
--- NOTE | 2019-01-16 07:14 | NUR ---
CARE ENDORSED TO DAY NURSE
--- NOTE | 2019-01-16 07:45 | NUR ---
AAO TIMES 4. TELE # [address] [facility] CTA. NO SOB. O2 SAT ON RA 95%. BS'S HYPOACTIVE. NGT TO LIS DRAINING DARK GREEN GI CONTENTS. PERIPHERAL PULSES PALPABLE. NO EDEMA. IV SITE LEFT WRIST PATENT, CDI. COOPERAIVE. HER FRIENDS AND FAMILY ARE PRESENT. NO C/O PAIN.
[2019-01-16 13:21] LABS: ATYPICAL LYMPH 2 %; BAND NEUTROPHIL 14 % (0-10); MONOCYTE 10 % (0-7); SEGMENTED NEUTROPHILS 60 % (37-75); rbc morphology (normal/abnorm) ABNORMAL (NORMAL)
[2019-01-16 13:22] LABS: PLATELET MORPHOLOGY PLATELETS INCREASED
[2019-01-16 15:00] VITALS: BP 118/75
--- NOTE | 2019-01-16 15:12 | NUR ---
BACK FROM PACU AT AROUND 1500. SHE IS DROWSY BUT AROUSABLE. HER VS'S ARE TEMP 98.3, PULSE 125, RESP 18, BP 118/75, MAP 88. DRESSING TO ABDOMEN CDI. FAMILY AND FRIENDS PRESENT. MARIA ELENA DRAINING SEROUS SANGUINOUS FLUID, WITH ENTEROSTOMY TUBE CLAMPED TO LEFT ABDOMEN. BROWN CATH DRAINING KYLEE URINE TO BSD. ENTEROSTOMY TUBE TO RIGHT MID ABDOMEN WITHOUT DRAININAGE. COLOSTOMY BAG TO RUQ ABDOMEN. NO C/O PAIN.
--- NOTE | 2019-01-16 15:17 | NUR ---
PLACED ON 2L NC FOR COMFORT FOR NOW.
--- NOTE | 2019-01-16 15:18 | NUR ---
TELE # 11 ST 129.
--- NOTE | 2019-01-16 16:35 | NUR ---
BP 105/67, HR 139. I CALLED SAMANTA NIELSEN NP TO NOTIFY HER OF THE HEART RATE. THE PATIENT DENIES PAIN. SAMANTA WANTS ME TO GIVE THE PLASMA AND ON THE NEXT VS'S CHECK, IF THE HEART RATE IS ELEVATED STILL, CALL HER.
[2019-01-16 16:43] VITALS: BP 105/67
--- NOTE | 2019-01-16 17:46 | NUR ---
ONE UNIT OF FFP WAS STARTED AT 1723, VS'S AFTER 15MINUTES WERE TEMP 99.5, HR 138, RESP 20, BP 109/73, O2 SAT ON 2L NC 96%. NO SIGNS OF REACTION NOTED. IV SITE TO LFA AND LEFT WRIST PATENT, CDI. FRIEND AT BEDSIDE, SUPPORTIVE. DENIES DISCOMFORT. DRESSING TO ABDOMEN CDI. NO SOB. TELE # 11 ST 138.
--- NOTE | 2019-01-16 17:56 | NUR ---
MARIA ELENA DRAINED 70 ML SINCE COMING BACK FROM OR, IN OR IT DRAINED 160. COLOSTOMY BAG WITH SMALL AMOUNT OF FORMED BROWN SOFT STOOL. BROWN CATH INSERTED IN OR DRAINED A TOTAL OF 700 ML KYLEE URINE TO BSD. DRESSING CDI.
--- NOTE | 2019-01-16 18:40 | NUR ---
C/O PAIN, WAS UNABLE TO USE THE INCENTIVE SPIROMETER. I GAVE MORPHINE 1 MG IVP AND ENCOURAGED HER TO USE THE IS TO AVOID PNEUMONIA. ALSO THE FFP INFUSED, AND WAS FINISHED AT 1830, VS'S STABLE, NO SIGN OF TRANSFUSION REACTION.
--- NOTE | 2019-01-16 19:40 | NUR ---
RECEIVED AWAKE AND VERBALLY RESPONSIVE. ABLE TO MAKE NEEDS KNOWN. SKIN WARM AND DRY TO TOUCH WITH NGT TO LIS WITH GREENISH DRAIANGE. ABDOMINAL INCISSION WITH SUTURES AND INTERRUPTED ABDULLAHI WITH XEROFOAM PACKING S/P COLON RESECTION 01/16/19. DENEIS ANY PAIN/DISCOMFORT AT THIS TIME. IV SITE AT THE LEFT WRIST WITH IVF D5 1/2 NS AT 40ML/HR INFUSING WELL. ON TELE #[address] AT 105/MIN , WILL CONTINUE TO MONITOR.
[2019-01-16 19:54] LABS: PLATELET COUNT 359 x10^3mcL (130-400)
[2019-01-16 19:57] LABS: RED CELL DISTRIBUTION WIDTH 22.2 % (11.5-14.5)
--- NOTE | 2019-01-16 20:00 | NUR ---
EH=243/MIN, DR VORA MADE AWARE, WITH NR=EW ORDERS GIVEN, NOTED AND CARRIED OUT. MD ORDERED TO START PPN TONITE AT 30ML/HR AND INCREASE D5 1/2NS FROM 40ML/H TO 50ML/HR TOTAL OF 80ML/HR FROM BOTH FLUIDS. PHARMACY MADE AWARE. FOR CBC/BMP IN AM AND TO DO CXR IN AM FOR FOLLOW UP.
[2019-01-16 20:20] LABS: BAND NEUTROPHIL 26 % (0-10); METAMYELOCTE 4 % (0-2); SEGMENTED NEUTROPHILS 61 % (37-75)
[2019-01-16 20:23] LABS: rbc morphology (normal/abnorm) ABNORMAL (NORMAL)
[2019-01-16 20:24] LABS: target cell (codocyte) 2+
[2019-01-16 20:25] LABS: burr cell (echinocyte) 1+
[2019-01-16 20:57] VITALS: BP 119/69
--- NOTE | 2019-01-16 22:35 | NUR ---
C/O SEVERE ABDOMINAL PAIN 0N SCALE 10/10, DILAUDID 1MG IVP GIVEN PRN MEDICATION. SSISTED IN REPOSITIONING FOR COMFORT. ENCOURAGED TO USE IS Q HR X10 WHILE AWAKE , COOPERATIVE WITH PLAN OF CARE.
[2019-01-16 22:57] VITALS: BP 111/66
--- NOTE | 2019-01-17 00:01 | NUR ---
EYES CLOSED, NO FACIAL GRIMACING NOTED. RESPIRATION EVEN AND UNLABORED. 02 AT 2L/NC SATURATING AT 98%. PAIN LEVEL 0/10.
[2019-01-17 03:09] VITALS: BP 118/74
--- NOTE | 2019-01-17 03:12 | NUR ---
ASSSISTED IN REPOSITIONING. NGT TO LIS PATENT WITH KAYLA VAUGHN, GOOD ORAL CARE RENDERED.
[2019-01-17 06:27] LABS: PLATELET COUNT 342 x10^3mcL (130-400)
[2019-01-17 06:32] VITALS: BP 146/73
--- NOTE | 2019-01-17 06:32 | NUR ---
STILL WITH INTERMITTENT SEVERE ABDOMINAL PAIN RELIEVED BY DIALUDID 1MG IVAS ORDERED. CONTINUES ON PPN AT 80CC/HR ORDERED. BLOOD SUGAR =284MG, 9UNITS HIR GIVEN SQ PER SLIDING SCALE. ALL NEEDS ATTENDED.
[2019-01-17 06:38] LABS: CALCIUM 7.2 mg/dL (8.5-10.1); CARBON DIOXIDE 27.2 mmol/L (21-32); CHLORIDE SERUM 103 mmol/L (98-107); CREATININE SERUM 0.5 mg/dL (0.6-1.0); GFR1 > 60 mL/min; GLUCOSE SERUM 317 mg/dL (74-106); POTASSIUM SERUM 3.3 mmol/L (3.5-5.1); SODIUM SERUM 139 mmol/L (136-145)
[2019-01-17 06:49] LABS: BASOPHIL % 0 % (0-2); RED CELL DISTRIBUTION WIDTH 23.4 % (11.5-14.5)
--- NOTE | 2019-01-17 07:50 | NUR ---
RECEIVED PT RESTING IN BED. AAOX4. RESP EVEN AND UNLABORED ON RA. C/O 11/19 ABD SURGICAL SITE PAIN, TOLERABLE. NGT TO L NARE, WITH BROWN OUTPUT. COLOSTOMY TO RUQ WITH MODERATE SOFT BROWN OUTPUT. ABD SURGICAL SITE DRESSINGS C/D/I. MARIA ELENA DRAIN DRAINING SEROSANGUINEOUS OUTPUT, 100 ML OUT. R AND L ABD INCISIONS WITH TUBINGS, CONNECTED TO BROWN BAGS FOR DECOMPRESSION. PT NPO. HOB SLIGHTLY ELEVATED. BED IN LOW POSITION, CALL LIGHT WITHIN REACH. WILL CONTINUE TO MONITOR.
[2019-01-17 08:11] VITALS: BP 136/69
--- NOTE | 2019-01-17 11:46 | NUR ---
COLOSTOMY BAG CAME OFF, SOFT BROWN OUTPUT NOTED. NEW COLOSTOMY BAG APPLIED, STOMA PINK AND MOIST. ABDOMINAL SURGICAL DRESSINGS CHANGED, 4X4 GAUZE AND ABD PADS TO MID ABD INCISION APPLIED. WILL CONTINUE TO MONITOR.
[2019-01-17 12:28] VITALS: BP 148/70
--- NOTE | 2019-01-17 14:22 | NUR ---
Initial Nutrition Assessment- 244T/B [facility] MR [place] Dx: ABD pain/bowel obstruction/possible tumor PMHx: HTN, DM PSHx: none Labs: (01/17) BG 317H, K 3.3L, (01/14) AST 43H, ALT 66H, ALK PH 112H Meds: Humulin, dilaudid, KCL 20 meq, senokot, Zofran Diet: NPO TPN order: Dextrose 10%, AA 4.25% @ 60 ml/hr, total volume 2000 ml Ht: 154.94 cm (61 in) Wt: 50.3 kg (111#) BMI: 21 kg/m2 IBW: 105# (48kg) %IBW: 105 UBW: ask pt. Age: 63/F Food Allergies: shell-fish Skin: sutures with interrupted gilda abd area S/P colon resection 01/16/19 Prateek: 18 Edema: none GI: last BM: 01/14/19 Per H&P, pt is 63 year old female with abd pain x 1 week. Pt was discharges from this hospital on 01/03/19 for DKA. Imaging: RAD/XR ABD: KUB (AP/PA) 01/17/19 Impression: 1. Nonobstructive bowel gas pattern. 2. The previously seen dilated loops of small bowel are no longer present. Pt visit, Pt was awake and said that she currently does not have any N/V. 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 Increased nutrient needs related to surgical procedure as evidenced by colostomy Intervention Continue with current TPN regimen. Dextrose 10%, AA 4.25% @ 60 ml/hr, total volume 2000 ml Monitor/Evaluate Goal: TPN intake at least 75% of estimated needs Monitor: TPN intake, Labs, GI function F/U in 2-3 days as high risk : 01/19-
--- NOTE | 2019-01-17 14:22 | NUR ---
Continue with current TPN regimen. Dextrose 10%, AA 4.25% @ 60 ml/hr, total volume 2000 ml
--- NOTE | 2019-01-17 14:27 | NUR ---
PT RESTING IN BED WITH EYES CLOSED, EASILY AROUSABLE. RESP EVEN AND UNLABORED ON RA. NO PAIN NOTED. IVF INFUSING, NO REDNESS OR SWELLING NOTED. FAMILY MEMBER AT BEDSIDE. CALL LIGHT WITHIN REACH. WILL CONTINUE TO MONITOR.
--- NOTE | 2019-01-17 14:30 | NUR ---
PT RESTING IN BED. NO ACUTE DISTRESS. RESP EVEN AND UNLABORED ON RA. NGT TO LOW INTERMITTENT SUCTION WITH BROWN COLORED OUTPUT. COLOSTOMY WITH MODERATE SOFT BROWN OUTPUT. MARIA ELENA DRAIN WITH SEROSANGUINEOUS OUTPUT. L AND R TUBINGS CONNECTED TO BROWN TO GRAVITY FOR DECOMPRESSION. HOB SLIGHTLY ELEVATED. PT REPORTS ABD SURGICAL PAIN TOLERABLE AT THIS TIME, 11/19. FAMILY MEMBERS AT BEDSIDE. CALL LIGHT WITHIN REACH. WILL CONTINUE TO MONITOR.
--- NOTE | 2019-01-17 14:45 | NUR ---
PHYSICAL THERAPY NOTE ATTEMPTED FOR PHYSICAL THERAPY EVAL. PATIENT REQUESTED TO HOLD FOR NEXT DAY SECONDARY TO FATIGUE
[2019-01-17 16:31] VITALS: BP 145/68
--- NOTE | 2019-01-17 20:00 | NUR ---
RECEIVED PT IN BED, RESTING QUIETLY. A/O X4. ABLE TO VERBALIZE NEEDS. RESP. EVEN AND UNLABORED.ON RA, NO ACUTE DISTRESS NOTED. DENIES PAINAT THIS TIME. NGT TO LT NARE, CONNECTED TO INTERM. SUCTION, DRAINING BROWNISH COLOR OUTPUT . ST ON THE MONITOR, DENIES CP. PT IS NPO, ABD. DRESSING DRESSING DRY AND INTACT. WITH RT AND LT TUBINGS CONNECTED TO BROWN BAGS FOR DECOMPRESSION. MARIA ELENA DRAIN INTACT AND DRAINING SEROSANGUINEOUS OUTPUT.COLOSTOMY BAG TO RUQ, INTACT AND SOFT BROWNISH COLOR STOOL NOTED. HOB ELEVATED. IVF PPN AT 60ML/HR, INFUSING VIA LFA, SITE CLEAR. HL TO LT WRIST, INTACT AND PATENT. HS CARE DONE. TURNED AND REPOSITIONED FOR COMFORT. CALL LIGHT WITHIN REACH. WILL CONTINUE TO MONITOR.
[2019-01-17 20:41] VITALS: BP 147/71
--- NOTE | 2019-01-17 23:24 | NUR ---
COMPLAINED OF ABD, INCISION SITE PAIN, 6/10, MEDICATED WITH DILAUDID IV ORDERED. VITAL SIGNS STABLE. WILL CONTINUE TO MONITOR.
--- NOTE | 2019-01-18 01:41 | NUR ---
EYES CLOSED AT THIS TIME, APPEARS ASLEEP AND COMFORTABLE. EASILY AROUSABLE. RESP. EVEN AND UNLABORED. [address], DAVE. WELL. NO ACUTE DISTRESS NOTED. CALL LIGHT WITHIN REACH. WILL CONTINUE TO MONITOR.
[2019-01-18 05:31] VITALS: BP 167/86
[2019-01-18 06:21] LABS: CALCIUM 7.8 mg/dL (8.5-10.1); CARBON DIOXIDE 32.9 mmol/L (21-32); CHLORIDE SERUM 105 mmol/L (98-107); CREATININE SERUM 0.4 mg/dL (0.6-1.0); GFR1 > 60 mL/min; GLUCOSE SERUM 220 mg/dL (74-106); MAGNESIUM 1.9 mg/dL (1.8-2.4); SODIUM SERUM 143 mmol/L (136-145)
--- NOTE | 2019-01-18 06:32 | NUR ---
SLEPT WELL. AFEBRILE AND VITAL SIGNS STABLE. RESP. EVEN AND UNLABORED. [address], NO ACUTE DISTRESS NOTED,MEDICATED FOR ABD. INCISION SITE PAIN ORDERED WITH RELIEF. ABD. DRESSING DRY AND INTACT. MARIA ELENA DRAIN INTACT AND PATENT. 120MLS OF SERO-SANG OBTAINED. NGT INTACT AND PATENT. 50MLS OF BROWNISH COLOR OUTPUT NOTED. COLOSTOMY BAG INTACT AND PATENT. NPO MAINTAINED. NO N/V NOTED. VOIDING FREELY VIA BEDPAN. TURNED AND REPOSITIONED Q2HRS AND PRN. WILL ENDORSE TO INCOMING NURSE.
[2019-01-18 06:41] LABS: BASOPHIL % 0.3 % (0-2); PLATELET COUNT 201 x10^3mcL (130-400)
[2019-01-18 06:45] LABS: POTASSIUM SERUM 2.6 mmol/L (3.5-5.1)
[2019-01-18 07:05] LABS: RED CELL DISTRIBUTION WIDTH 20.5 % (11.5-14.5)
--- NOTE | 2019-01-18 07:30 | NUR ---
RECEIVED PT RESTING IN BED. AAOX4. RESP EVEN AND UNLABORED ON RA. STATED ABD SURGICAL SITE PAIN TOLERABLE AT THIS TIME 12/17. DRESSING TO ABD C/D/I. COLOSTOMY BAG WITH LIQUID BROWN OUTPUT. MARIA ELENA DRAIN WITH 75 ML SEROSANGUINEOUS OUTPUT. LEFT AND RIGHT ABDOMINAL TUBINGS CONNECTED TO BROWN BAGS FOR DECOMPRESSION. PT ASSISTED WITH BEDPAN TO VOID. IV TO LFA AND L WRIST WITH NO REDNESS OR SWELLING. NGT TO L NARE WITH DARK GREEN OUTPUT. BED IN LOW POSITION, CALL LIGHT WITHIN REACH. WILL CONTINUE TO MONITOR.
--- NOTE | 2019-01-18 07:35 | NUR ---
CARE ASSUMED FROM OUTGOING RN. PT RESTING COMFORTABLY IN BED. FAMILY AT BEDSIDE. NO ACUTE DISTRESS NOTED. NO SOB ON RA. DENIES CHEST PAIN/PRESSURE. IV PATENT AND INTACT RUNNING PPN PER EMAR. TUBE FEEDING GLUCERNA STARTED AT 20ML/HR. PT TOLERATING WELL. MARIA ELENA DRAINING WELL. BED IN LOWEST POSITION. CALL LIGHT WITHIN REACH. WILL CONTINUE TO MONITOR.
[2019-01-18 07:55] VITALS: BP 159/79
--- NOTE | 2019-01-18 10:41 | NUR ---
NGT REMOVED BY DR. VORA. 100 ML DARK GREEN OUTPUT NOTED. CECOSTOMY AND JEJUNOSTOMY TUBES CLAMPED ORDERED. PT TOLERATED WELL. WILL CONTINUE TO MONITOR.
[2019-01-18 11:56] LABS: burr cell (echinocyte) 1+; rbc morphology (normal/abnorm) ABNORMAL (NORMAL); schistocyte (helmet cell) 1+
[2019-01-18 11:57] LABS: ovalocyte/elliptocyte 1+; target cell (codocyte) 1+
--- NOTE | 2019-01-18 12:02 | NUR ---
ASSISTED PT TO BEDSIDE COMMODE, GAIT STEADY. WILL CONTINUE TO MONITOR.
[2019-01-18 12:11] VITALS: BP 140/74
--- NOTE | 2019-01-18 13:39 | NUR ---
PT IN NO ACUTE DISTRESS. TOLERATED CLEAR LIQUID DIET WELL. C/O NAUSEA AFTER TAKING POTASSIUM MEDICATION, GIVEN ZOFRAN ORDERED. VISITOR AT BEDSIDE. CALL LIGHT WITHIN REACH. WILL CONTINUE TO MONITOR.
[2019-01-18 15:57] VITALS: BP 150/89
--- NOTE | 2019-01-18 18:38 | NUR ---
PT RESTING IN BED. NO ACUTE DISTRESS. BREATHING EVEN AND UNLABORED ON RA. ABDOMINAL DRESSING C/D/I. MARIA ELENA WITH SEROSANGUINEOUS OUTPUT. COLOSTOMY WITH LIQUID BROWN OUTPUT. REPORTS MILD ABDOMINAL SURGICAL SITE PAIN. IVF INFUSING, NO REDNESS OR SWELLING TO IV SITES. VISITORS AT BEDSIDE. BED IN LOW POSITION,C ALL LIGHT WITHIN REACH. WILL ENDORSE TO ONCOMING SHIFT.
[2019-01-18 20:02] VITALS: BP 138/75
--- NOTE | 2019-01-18 22:00 | NUR ---
IVS TO LFA AND L WRIST INFLITRATED. ICE PACK APPLIED. DISCONTINUED BOTH IVS. DENIES PAIN AT THE MOMENT. RFA 22G IV STARTED PATENT AND INTACT. WILL CONTINUE TO MONITOR
--- NOTE | 2019-01-19 01:31 | NUR ---
PT RESTING COMFORTABLY IN BED. NO ACUTE DISTRESS NOTED. NO SOB ON RA. MARIA ELENA DRAIN AND COLOSTOMY BAG PATENT. IV PATENT AND INTACT. BED IN LOWEST POSITION. CALL LIGHT WITHIN REACH. WILL CONTINUE TO MONITOR.
--- NOTE | 2019-01-19 02:00 | NUR ---
TUBE FEEDING GLUCERNA STARTED AT INITIAL RATE OF 20ML/HR WITH FWF OF 50ML Q4HRS. ATTACHED TO J TUBE. PT TOLERATING WELL. WILL CONTINUE TO MONITOR AND CHECK RESIDUALS Q6HR.
--- NOTE | 2019-01-19 06:00 | NUR ---
NO RESIDUAL NOTED FROM J TUBE. TUBE FEEDING INCREASED TO 30ML/HR. PT TOLERATING WELL. WILL ENDORSE TO ONCOMING SHIFT.
[2019-01-19 06:15] LABS: CALCIUM 7.9 mg/dL (8.5-10.1); CARBON DIOXIDE 30.7 mmol/L (21-32); CHLORIDE SERUM 104 mmol/L (98-107); CREATININE SERUM 0.4 mg/dL (0.6-1.0); GFR1 > 60 mL/min; GLUCOSE SERUM 139 mg/dL (74-106); POTASSIUM SERUM 3.1 mmol/L (3.5-5.1); SODIUM SERUM 141 mmol/L (136-145)
--- NOTE | 2019-01-19 07:50 | NUR ---
RC'D PT RESTING IN BED WITH NO APPARENT SIGNS OF DISTRESS. A/A/O/X4, SPEECH CLEAR AND APRPORPAITE. DENIES TEE/DIZZINESS. ON TELE, DENIES CHEST PAIN/PRESSURE. PALP PULSES. RESPIRATIONS EQUAL AND UNLABORED. LUNGS CTA. ON RA, DENIES SOB. ABDOMEN SOFT. ACTIVE BS. DENIES N/V. TUBE FEEDING GLUCERNA 1.2 RUNNING AT 30ML/HR. <[address] RESIDUAL NOTED. JTUBE IN PLACE, WNL. MIDLINE ABDOMINAL DRESSING IN PLACE, CDI. MARIA ELENA DRAIN NTOED WITH SERASANGINUOUS DRAINAGE, WNL. CECOSTOMY NOTED WITH LIGHT BROWN LIQUID DRAINAGE, WNL. PT DENIES EXCESSIVE PAIN AT THIS TIME. IV PATENT AND INTACT. BED IN LOW POSITION. CALL LIGHT IN REACH. WILL CONTINUE TO MONITOR
--- NOTE | 2019-01-19 09:00 | NUR ---
AM MEDICATIONS GIVEN. PT TOLERATED WELL. RESPIRATIONS EQUAL AND UNLABORED. ON RA, DENIES SOB. PT DENIES EXCESSIVE PAIN AT THIS TIME. BED IN LOW POSITION. CALL LIGHT IN REACH. WILL CONTINUE TO MONITOR
[2019-01-19 10:38] VITALS: BP 142/76
--- NOTE | 2019-01-19 11:44 | NUR ---
PT RESTING IN BED WITH NO APAPRENT SIGNS OF DISTRESS. RESPIRATIONS EQUAL AND UNLABORED. ON RA, DENIE SOB. BED IN LOW POSITION. CALL LIGHT IN REACH. WILL CONTINUE TO MONITOR
[2019-01-19 12:23] LABS: PLATELET COUNT 146 x10^3mcL (130-400)
--- NOTE | 2019-01-19 12:52 | NUR ---
Follow-up Nutrition Assessment- 244T/B [facility] HR FU Dx: ABD pain/bowel obstruction/possible tumor Labs: (01/19) K 3.1L, BG 139H, CREAT 0.4L Meds: D10, Dilaudid, humulin 3ml, Zofran, zosyn Enteral nutrition: Glucerna 1.2 (GJ tube) @ 20 ml/hr, goal 50ml/hr, FWF 50 ml q4hr (01/18) Provides: 576 kcal, 29 g protein Diet order: CLD (01/18) LUNCH TPN: Dextrose 10%, AA 4.25% @ 60 ml/hr, total volume 2000 ml I&O: TF 100ml Weights: (01/14) 50 kg Skin: sutures with interrupted gilda abd area S/P colon resection 01/16/19 Prateek: 18 Edema: none Last BM: 01/18/19 Per H&P, pt is 63 year old female with abd pain x 1 week. Pt was discharges from this hospital on 01/03/19 for DKA. Pt has MARIA ELENA drain with serasanginous drainage. Cecostomy tube in place. Per pt's RN, pt is tolerating current TF regimen. Patient to be progressed to CLD soon. Estimated Nutritional Needs Based on actual body weight 50.3 kg Energy: 1257- 1509 kcal/d (25-30 kcal/kg-maintenance) Protein: 50.3 - 60 g/d (1.0-1.2 g/kg)-maintenance and preservation of lean body mass Fluid: 8552-5151 ml/d (1 ml/kcal-fluid balance) or per doctor Nutrition Diagnosis 1. Increased nutrient needs related to surgical procedure as evidenced by colostomy and cecostomy. (ongoing) 2. Inadequate enteral nutrition infusion related to current TF regimen as evidenced by unable to meet estimated needs. Intervention 1. Glucerna 1.2@ 50 ml/hr. Provides :1440 kcal, 72g protein 2. Progress to CLD when appropriate/tolerated. Monitor/Evaluate Previous goal: TPN intake at least 75% of estimated needs Goal: EN intake at least 75% of estimated needs Monitor: EN intake/tolerance, Labs, GI function F/U in 3-5 days as moderate risk: 01/22-
--- NOTE | 2019-01-19 12:53 | NUR ---
1. Glucerna 1.2@ 50 ml/hr. Provides :1440 kcal, 72g protein 2. Progress to CLD when appropriate/tolerated.
[2019-01-19 14:07] VITALS: BP 136/70
--- NOTE | 2019-01-19 16:13 | NUR ---
PHYSICAL THERAPY DAILY NOTES CO-SIGN All documentation done by the Grounds Caretaker for 01/19/19 has been reviewed. I agree with the documentation. Reviewed/Co-Signed by: Ti Le PT Documentation Done by:HENRY RENE BUS AND TROLLEY DISPATCHER
--- NOTE | 2019-01-19 17:27 | NUR ---
PT RESTING IN BED WITH NO APPARENT SIGNS OF DISTRESS. ON TELE, DENIES CHEST PAIN/PRESSURE. RESPIRATIONS EQUAL AND UNLABORED. ON RA, DENIES SOB. CECOSTOMY DRAINING YELLOW LIQUID, WNL. MIDLINE DRESSING WNL, CDI. JTUBE WITH GLUCERNA 1.2 INFUSING AT 30ML/HR, PT TOLERATING WELL. NO RESIDUAL NOTED. PT VOIDS USING BSC. GENERALIZED WEAKNESS. PT ABLE TO GET UP TO BSC WITH ASSIST. PT DENIES EXCESSIVE PAIN AT THIS TIME. IV PATENT AND INTACT. BED IN LOW POSTIION. CALL LIGHT IN REACH. WILL ENDORSE TO HIDE OR SKIN BUFFER RN
[2019-01-19 18:04] VITALS: BP 146/70
--- NOTE | 2019-01-19 19:50 | NUR ---
REC'D PT FROM DAY NURSE. FAMILY AT BEDSIDE. PT RESTING IN BED. AAOX4, SPEECH CLEAR, FOLLOWS COMMANDS. TELE 11. DENIES CP, DIZZINESS, OR PALPITATIONS. NO EDEMA NOTED. DENIES RESP DISTRESS OR SOB. BREATHING EVEN/UNLABORED ON RA. ABD SOFT/FLAT. DENIES ABD PAIN OR N/V. REPORTS TENDERNESS UPON PALPATION. COLOSTOMY NOTED TO RUQ DRAINING DARK GREEN STOOL. STOMA BEEFY RED. TF INFUSING GLUCERNA 1.2 @ 30 ML/HR, GOAL PER DR. VORA, TO JT. LARGE ABD DRESSING FROM MID UPPER ABD TO LOWER MID AND LOWER R ABD. SEROUS TO SEROSANGUINEOUS DRAINAGE NOTED TO R LOWER ABD- WILL CHANGE. GEN WEAKNESS. VOIDING FREELY. DENIES PAIN. IV TO RFA PATENT AND INFUSING, SITE WNL. CALL LIGHT WITHIN REACH, BED AT LOWEST POSITION. WILL CONTINUE TO MONITOR.
[2019-01-19 20:55] VITALS: BP 133/69
--- NOTE | 2019-01-19 22:17 | NUR ---
PT TRANSFERRED TO MED SURG, TELE REMOVED. DRESSING TO MARIA ELENA SITE REMOVAL CHANGED. SATURATED WITH SEROUS TO SEROSANGUINEOUS DRAINAGE. APPLIED FOUR 4X4 GAUZE AND SECURED WITH PAPER TAPE. SPONGE DRAIN DRESSING CHANGED TO CECOSTOMY TUBE. NO S/SX OF INFECTION NOTED TO SKIN. GOWN CHANGED. PT ASSISTED TO BSC TO VOID.
--- NOTE | 2019-01-19 22:42 | NUR ---
COLOSTOMY SITE LEAKING. ALL DRESSINGS REMOVED. COLOSTOMY BAG CHANGED. LARGE LINEAR SX INCISION TO MIDLINE OF ABD. IRRIGATED WITH NS. NO S/SX OF INFECTION NOTED. APPLIED SIX 4X4 GAUZE ALONG INCISION AND COVERED WITH ABD DRESSING. SPONGE FLUFF APPLIED TO CECOSTOMY TUBE INSERTION SITE. FOUR 4X4 GAUZE APPLIED TO MARIA ELENA SITE REMOVAL. ALL DRESSINGS SECURED WITH PAPER TAPE. GOWN AND LINENS CHANGED. MADE COMFORTABLE IN BED. CALL LIGHT WITHIN REACH, BED AT LOWEST POSITION. WILL CONTINUE TO MONITOR.
--- NOTE | 2019-01-20 02:45 | NUR ---
PT RESTING IN BED WITH EYES CLOSED. NO SIGNS OF DISTRESS NOTED. BREATHING EVEN/UNLABORED ON RA. TF INFUSING @ 30 ML/HR. CALL LIGHT WITHIN REACH, BED AT LOWEST POSITION. WILL CONTINUE TO MONITOR.
[2019-01-20 06:05] VITALS: BP 159/75
--- NOTE | 2019-01-20 06:24 | NUR ---
PT AWAKE AND RESTING IN BED. REPORTS MILD ABD PAIN BUT TOLERABLE, DENIES PAIN MEDS. DRESSING TO ABD IN PLACE AND SECURE, CDI. TOTAL OF 1125 ML GREEN OUTPUT WITH DARK GREEN CHUNKS OUT VIA COLOSTOMY. TF INFUSING GLUCERNA 1.2 @ 30 ML/HR, NO RESIDUAL. TUBING CHANGED. PT HAS BEEN TAKING IN A LOT OF ICE CHIPS. NO SIGNIFICANT CHANGES DURING SHIFT. CALL LIGHT WITHIN REACH, BED AT LOWEST POSITION. WILL ENDORSE TO DAY NURSE.
[2019-01-20 07:37] LABS: CALCIUM 8.5 mg/dL (8.5-10.1); CARBON DIOXIDE 29.3 mmol/L (21-32); CHLORIDE SERUM 108 mmol/L (98-107); CREATININE SERUM 0.5 mg/dL (0.6-1.0); GFR1 > 60 mL/min; GLUCOSE SERUM 193 mg/dL (74-106); MAGNESIUM 1.8 mg/dL (1.8-2.4); PHOSPHOROUS 2.5 mg/dL (2.5-4.9); POTASSIUM SERUM 3.5 mmol/L (3.5-5.1); SODIUM SERUM 145 mmol/L (136-145)
--- NOTE | 2019-01-20 07:50 | NUR ---
RC'D PT RESTING IN BED WITH NO APPARENT SIGNS OF DISTRESS. A/A/O/X4, SPEECH CLEAR AND APPROPRIATE. DENIES TEE/DIZZINESS. MEDSURG. DENIES CHEST [place]/PRESSURE. PALP PULSES. RESPIRATIONS EQUAL AND UNLABORED. LUNGS CTA. ON RA, DENIES SOB. ABDOMEN SOFT. ACTIVE BS. DENIES N/V. JTUBE TO LUQ, WNL. RUQ COLOSTOMY WITH GREEN DRAINAGE, WNL. ABDOMINAL DRESSING IN PLACE, CDI. PT DENIES PAIN AT THIS TIME. IV PATENT AND INTACT. BED IN LOW POSITION. CALL LIGHT IN REACH. WILL CONTINUE TO MONITOR
--- NOTE | 2019-01-20 08:35 | NUR ---
AM MEDICATIONS GIVEN. PT TOLERATED WELL. JTUBE CHECKED FOR RESIDUAL, <5ML. RESPIRATIONS EQUAL AND UNLABORED. ON RA, DENIES SOB. PT DENIES EXCESSIVE PAIN AT THIS TIME. BED IN LOW POSITION. CALL LIGHT IN REACH. WILL CONTINUE TO MONITOR
[2019-01-20 09:06] VITALS: BP 151/72
[2019-01-20 10:24] LABS: RED CELL DISTRIBUTION WIDTH 22.4 % (11.5-14.5)
[2019-01-20 10:26] LABS: PLATELET COUNT 276 x10^3mcL (130-400)
--- NOTE | 2019-01-20 11:20 | NUR ---
PT RESTING IN BED WITH NO APPARENT SIGNS OF DISTRESS. RESPIRATIONS EQUAL AND UNLOABORED. ON RA, DENIES SOB. PT DENIES EXCESSIVE PAIN AT THIS TIME. BED IN LOW POSITION. CALL LIGHT IN REACH. WILL CONTINUE TO MONTELLA
[2019-01-20 16:03] VITALS: BP 156/63
--- NOTE | 2019-01-20 16:03 | NUR ---
PHYSICAL THERAPY DAILY NOTES CO-SIGN All documentation done by the Information Technology Coordinator for 01/20/19 has been reviewed. I agree with the documentation. Reviewed/Co-Signed by: Ashli Rojo PT Documentation Done by:HENRY RENE LEGAL ADMINISTRATIVE SECRETARY POC REVEIWED W/ LEGAL ADMINISTRATIVE SECRETARY; PROGRESS DAVE.
--- NOTE | 2019-01-20 17:56 | NUR ---
PT RESTIGN IN BED WITH NO APPARENT SIGNS 0F DISTRESS. MEDSURG. DENIES CHEST PAIN/PRESSURE. RESPIRATIONS EQUAL AND UNLABROED. ON RA, DENIES SOB. VOIDS FREELY. GLUCERNA 1.2 INFUSING AT 30ML/HR. COLOSTOMY NOTED WITH DARK GREEN DRAINAGE. CECOSTOMY TUBE CLAMPED. DRESSING TO THE RLQ COVERING OLD MARIA ELENA DRAIN INSERTION POINT CHANGED. NO ACUTE SKIN CHANGES NOTED AT THIS TIME. IV PATENT AND INTACT. BED IN LOW POSITION. CALL LIGHT IN REACH. WILL ENDORSE TO TERRITORY SALES REPRESENTATIVE RN
--- NOTE | 2019-01-20 19:20 | NUR ---
RECIEVED PT FROM RADHA KLEIN. PT SITTING UP IN BED. A/O X4 ABLE TO VERBALIZE NEEDS. DENIES SOB. BREATHING EVEN AND UNLABORED. SAT 98% RA. PT DENIES CP. DRESSING AT ABD. MARIA ELENA LEFT ABD. 30ML/HR TUBE FEEDING INFUSING. COLOSTOMY RUQ CLAMPED INTACT. IV SITE AT RFA INTACT. PT AMBULATORY WITH ASSISTANCE. VOIDS FREELY USING BSC. PT DENIES PAIN AT THIS TIME. WILL CONTINUE TO MONITOR.
[2019-01-20 19:40] VITALS: BP 134/63
--- NOTE | 2019-01-21 00:02 | NUR ---
APPROX 5ML TUBE FEEDING RESIDUAL NOTED. FLUSHED WITH WATER FOR PATENCY. FEEDING CONTINUED AT 30MLS ORDERED.
--- NOTE | 2019-01-21 00:34 | NUR ---
PT RESTING IN BED. COLOSTOMY BAG EMPTIED 100ML OUT. REPOSITIONED PT TO COMFORTABLE STATE. NO S/SX OF DISTRESS NOTED. PT DENIES PAIN AT THIS TIME. CALL LIGHT WITH IN REACH. FALL PRECAUTIONS IN PLACE. BED IN LOWEST POSITION. WILL CONTINUE TO MONITOR.
--- NOTE | 2019-01-21 02:35 | NUR ---
ASSISTED PT TO BSC. EMPITIED COLOSTOMY BAG 100ML OUT. CHANGED PT GOWN AND CLEANED PT UP. ASSISTED PT IN GETTING BACK IN BED AND REPOSITIONING. WILL CONTINUE TO MONITOR.
[2019-01-21 06:10] VITALS: BP 149/66
--- NOTE | 2019-01-21 06:19 | NUR ---
PT RESTING IN BED WITH EYES CLOSED. EASILY AROUSED BY VERBAL STIMULI. BREATHING EVEN AND UNLABORED. IV SITE INTACT. TUBE FEEDING IN PLACE INFUSING AT 30ML/HR. NO ACUTE CHANGES THROUGHOUT SHIFT. NO S/SX OF DISTRESS AT THIS TIME. WILL ENDORSE CARE TO ON COMING SHIFT.
[2019-01-21 06:33] LABS: CALCIUM 7.8 mg/dL (8.5-10.1); CARBON DIOXIDE 25.6 mmol/L (21-32); CHLORIDE SERUM 104 mmol/L (98-107); CREATININE SERUM 0.3 mg/dL (0.6-1.0); GFR1 > 60 mL/min; GLUCOSE SERUM 151 mg/dL (74-106); SODIUM SERUM 139 mmol/L (136-145)
--- NOTE | 2019-01-21 06:41 | NUR ---
CALLED FOR CRITICAL LAB VALUE, POTASSIUM 2.0. AWAITING CALL BACK. NO NEW ORDERS AT THIS TIME.
--- NOTE | 2019-01-21 07:22 | NUR ---
RECEIVED REPORT FROM ROSALVA GARCIA. PT RESTING COMFORTABLY IN BED. IV TO RFA IS PATENT AND INTACT. NO REDNESS OR PAIN. PT ON ROOM AIR. NO C/O SOB AND NO DISTRESS NOTED. INCISION TO MID ABDOMEN COVERED WITH ABD AND TAPE. CDI. TUBE FEEDING GLUCERNA 1.2 NOTED AT 30 ML/HR TO LLQ. NO DRAINAGE OR NOTED AT SITE. COLOSTOMY TO RUQ DRAINING BEIGE FLUID 350 ML EMPTIED NOW. ALL QUESTIONS AND CONCERNS ADDRESSED.
--- NOTE | 2019-01-21 07:51 | NUR ---
NOTIFIED AYANNA ENGLAND OF POTASSIUM @ 2.0
[2019-01-21 08:47] VITALS: BP 133/65
[2019-01-21 09:54] LABS: PLATELET COUNT 77 x10^3mcL (130-400)
[2019-01-21 10:16] LABS: ATYPICAL LYMPH 1 %; BAND NEUTROPHIL 5 % (0-10); SEGMENTED NEUTROPHILS 70 % (37-75)
[2019-01-21 10:17] LABS: BASOPHIL 0 % (0-2); MONOCYTE 8 % (0-7)
[2019-01-21 10:18] LABS: rbc morphology (normal/abnorm) ABNORMAL (NORMAL)
[2019-01-21 10:19] LABS: PLATELET MORPHOLOGY D
--- NOTE | 2019-01-21 17:25 | NUR ---
NOTIFIED SATELLITE DISH INSTALLER SAMANTA OF PLT DECREASE FROM [phone] TO [phone]. SAMANTA STATED IT IS LIKELY AN ERROR AND HAS ORDERED A REDRAW TOMORROW.
[2019-01-21 17:30] VITALS: BP 134/65
--- NOTE | 2019-01-21 18:38 | NUR ---
SPOKE WITH DR VORA TO UPDATE PT STATUS. DISCUSSED CECOSTOMY DC TOMORRW IN ORDER. PT TOLERATING FULL LIQUID DIET. DR VORA ORDERED TUBE FEED TO DECREASE TO 20 ML/HR.
--- NOTE | 2019-01-21 18:50 | NUR ---
DR VORA CALLED BACK AND ORDERED CECOSTOMY TO BE REMOVED NOW. STITCH WAS REMOVED, 5ML SALINE WAS REMOVED FROM BALLOON, CECOSTOMY WAS REMOVED. YELLOW DRAINIAGE NOTED AND 4X4 GAUZE WAS APPLIED AND SECURED WITH TAPE. PT TOLERATED IT WELL.
--- NOTE | 2019-01-21 19:29 | NUR ---
RECIEVED PT FROM ROBE RN, PT RESTING IN BED. A/O X4 ABLE TO VERBALIZE NEEDS. SISTER N LAW AT BEDSIDE. LUNG SOUNDS CTA. DENIES SOB AT THIS TIME. ABD FLAT AND SOFT. ABD PAD AND GAUZE IN PLACE TO ABD. COLOSTOMY BAG IN PLACE AND EMPITIED. TUBE FEEDING IN PLACE AT J-TUBE AT 20ML/HR. PT DENIES PAIN AT THIS TIME. AMBULATORY WITH ASSIST. VOIDS USING BSC. CALL LIGHT WITHIN REACH. BED IN LOW POSITION. WILL CONTINUE TO MONITOR.
--- NOTE | 2019-01-21 19:41 | NUR ---
REPORT GIVEN TO ROSALVA GARCIA. PT RESTING COMFORTABLY IN BED. ALL NEEDS MET. ALL QUESTIONS AND CONCERNS ADDRESSED. ALL CARES ENDORSED.
[2019-01-21 20:18] VITALS: BP 126/67
--- NOTE | 2019-01-21 20:54 | NUR ---
PT COMPLAIN OF 7/10 ABD PAIN. MORPHINE IVP GIVEN PER EMAR. WILL CONTINUE TO MONITOR.
--- NOTE | 2019-01-21 21:40 | NUR ---
TUBE FEEDING CHANGED. ABD DRESSING CHANGED AND REINFORCED. PT TOLERATED WELL. CHANGED BEDDING AND GOWN. RESTING IN BED AT THIS TIME IN COMFORTABLE STATE. BED IN LOW POSITION CALL LIGHT WITHIN REACH.
--- NOTE | 2019-01-22 05:45 | NUR ---
PT RESTING IN BED IN SUPINE POSITION. BREATHING EVEN AND UNLABORED. COLOSTOMY IN PLACE. TUBE FEEDING IN PLACE AT 20ML/HR. PT TOLERATING FULL LIQUID DIET. IV SITE INTACT RIGHT FA. NO ACUTE DISTRESS NOTED. ALL NEEDS AND CONCERNS MET THROUGHOUT THE NIGHT. WILL ENDORSE CARE TO ON COMING SHIFT.
[2019-01-22 06:11] VITALS: BP 152/65
[2019-01-22 06:55] LABS: CALCIUM 8.7 mg/dL (8.5-10.1); CARBON DIOXIDE 26.8 mmol/L (21-32); CHLORIDE SERUM 109 mmol/L (98-107); CREATININE SERUM 0.4 mg/dL (0.6-1.0); GFR1 > 60 mL/min; GLUCOSE SERUM 145 mg/dL (74-106); MAGNESIUM 1.6 mg/dL (1.8-2.4); POTASSIUM SERUM 3.6 mmol/L (3.5-5.1); SODIUM SERUM 145 mmol/L (136-145)
[2019-01-22 07:06] LABS: RED CELL DISTRIBUTION WIDTH 21.4 % (11.5-14.5)
--- NOTE | 2019-01-22 07:30 | NUR ---
RECEIVED PT IN BED A/A/OX4 DENIES TEE. RESP EVEN AND UNLABORED WITH CLEAR BS BILAT. NO SOB/CP/PRESSURE AT THIS TIME. NO EDEMA NOTED WITH IVF TKO TO RFA. ABD SOFT, TENDER TO TOUCH WITH ACTIVE BS X4. DENIES ANY N/V AT THIS TIME. S/P LT COLON RESECTION ON 01/16, POD6. WITH MIDLINE INSICION WITH SUTURES WITH ABD PAD IN PLACE. RLQ COLOSTOMY WITH YELLOW/GREEN WATERY STOOL. PT HAD CECOSTOMY WITH DRAINAGE TUBE D/C YESTERDAY, WITH OPEN SITE WITH GREENISH/WHITISH DRAINAGE. CHANGED DRSG THIS AM. PT WITH J-TUBE FEEDING OF GLUCERNA 1.2 AT 30ML/HR WITH FULL LIQUID DIET, TOLERATED WELL. PT WITH MILD GEN WEAKNESS ABLE TO REPOSITION IN BED AND TRANSFER TO BS WITH ASSISTANCE. CALL LIGHT IN REACH NEEDS ATTENDED TO.
[2019-01-22 07:53] VITALS: BP 144/65
--- NOTE | 2019-01-22 09:45 | NUR ---
RECEIVED A CALL FROM DR. VORA REQUESTING UPDATE ON PT. MADE MASON PT TOLERATING FULL LIQUID DIET WELL. PT HAS BEEN HAVING WATERY STOOLS SO FAR HAVE EMPTIED ABOUT 650ML, AND THAT THE CECOSTOMY SITE HAD BEED DRAING QUITE A BIT WELL. NOTIFIED THAT DR. BOX HAD JUST EVALUATED PT AND WANTED TF TO BE STOPPED AND PT TO BE ADVANCED TO [facility] REGULAR DIET. DR. VORA STATED HE AGREED WITH DR. BOX JUST REQUESTED FOR DIET TO BE SOFT. TF WAS STOPPED AND J-TUBE WAS FLUSHED. CONT TO MONITOR.
--- NOTE | 2019-01-22 10:30 | NUR ---
[place] [facility] [place] OUT OF HER DRSG. PROVIDED SX SITE AND CECOSTOMY SITE DRSG CHANGE AT THIS TIME. PT TOLERATED WELL. DENIED ANY NEED FOR PAIN MEDS.
[2019-01-22 13:29] LABS: PLATELET COUNT 355 x10^3mcL (130-400)
[2019-01-22 13:41] LABS: MONOCYTE 3 % (0-7); SEGMENTED NEUTROPHILS 91 % (37-75)
[2019-01-22 13:43] LABS: BASOPHIL 0 % (0-2)
--- NOTE | 2019-01-22 13:45 | NUR ---
PT TOLERATED CCHO DIET WELL. DENIED ANY N/V. EMPTYED ANOTHER 200ML OUT OF COLOSTOMY BAG WITH SOME JUNKS. DRSG REMAIN CDI.
[2019-01-22 13:46] LABS: rbc morphology (normal/abnorm) ABNORMAL (NORMAL)
[2019-01-22 13:47] LABS: burr cell (echinocyte) 1+; ovalocyte/elliptocyte 3+; tear drop cell (dacryocyte) 1+
--- NOTE | 2019-01-22 15:52 | NUR ---
PHYSICAL THERAPY DAILY NOTES CO-SIGN All documentation done by the Campaign Specialist for 01/22/19 has been reviewed. I agree with the documentation. Reviewed/Co-Signed by: Ti Le PT Documentation Done by:HENRY RENE PTA
[2019-01-22 17:19] VITALS: BP 138/67
--- NOTE | 2019-01-22 18:05 | NUR ---
PT TOLERATED DINNER WELL EATING SLOWLY AT THIS TIME. ABOUT 40% BUT STILL WORKING ON HER DINNER. DENIES ANY N/V AT THIS TIME. COLOSTOMY OUTPUT WITH JASSON CHUNKS IN IT NOT WATERY. REMAINS GREEN/YELLOW COLOR. DENIED ANY NEED FOR PAIN MEDS LAST NIGHT. CALL LIGHT IN REACH NEEDS ATTENDED TO.
--- NOTE | 2019-01-22 19:25 | NUR ---
AOX4. MED SURG. DENIES CP. LUNGS CLEAR ON RA. PULSES PALPABLE. NO EDEMA. COLOSTOMY TO RUQ WITH LIQUID OUTPUT AND SOLID FOOD PARTICLES. PT ABLE TO DEMONSTRATE EMPTYING OF COLOSTOMY BAG INDEPENDENTLY WITH MINIMAL GUIDANCE. CECOSTOMY TO RLQ WITH DRESSING, CDI. J-TUBE TO LLQ, DRESSING CDI. VOIDS FREELY. AMBULTORY. MIDLINE ABD INCISION WITH DRESSING, CDI. DENIES PAIN. IV TO RFA, PATENT AND INFUSING. BED IN LOWEST POSITION, 2 SIDE RAILS UP, CALL LIGHT IN REACH. INSTRUCTED TO CALL FOR ASSISTANCE.
[2019-01-22 20:38] VITALS: BP 171/66
[2019-01-22 22:21] VITALS: BP 133/68
--- NOTE | 2019-01-23 01:33 | NUR ---
RESTING IN BED WITH EYES CLOSED. BREATHING EVEN AND UNLABORED. NO ACUTE DISTRESS NOTED. WILL CONTINUE TO MONITOR.
[2019-01-23 05:27] VITALS: BP 160/68
--- NOTE | 2019-01-23 05:58 | NUR ---
DRESSINGS TO CECOSTOMY, JTUBE, AND MIDLINE ABD ALL CDI. PT CONTINUES TO HAVE LIQUID WITH PARTICLES OUTPUT FROM COLOSTOMY. PT ABLE TO INDEPENDENTLY EMPTY COLOSTOMY. ABD PAIN DENIED THROUGHOUT SHIFT. NO ACUTE DISTRESS NOTED. NO ACUTE CHANGES. WILL ENDORSE TO ONCOMING RN.
[2019-01-23 06:59] LABS: CALCIUM 8.4 mg/dL (8.5-10.1); CARBON DIOXIDE 26.6 mmol/L (21-32); CHLORIDE SERUM 102 mmol/L (98-107); CREATININE SERUM 0.5 mg/dL (0.6-1.0); GFR1 > 60 mL/min; GLUCOSE SERUM 167 mg/dL (74-106); POTASSIUM SERUM 3.6 mmol/L (3.5-5.1); SODIUM SERUM 138 mmol/L (136-145)
--- NOTE | 2019-01-23 08:00 | NUR ---
RECEIVED PT IN BED A/A/OX4 DENIES TEE. RESP EVEN AND UNLABORED WITH CLEAR BS BILAT. DENIES ANY SOB/CP/PRESSURE AT THIS TIME. NO EDEMA NOTED WITH IVF SL TO RFA. ABD SOFT, NONTENDER WITH ACTIVE BS 4 DENIES ANY N/V AT THIS TIME. VOIDING FREELY UP TO BSC. ABD SOFT, TENDER TO TOUCH WITH ACTIVE BS. S/P BOWEL RESECTION WITH RT SIDED COLOSTOMY WITH GREEN/YELLOW WATERY STOOLS WITH CHUCKS OF PARTIALLY DIGESTED FOOD BOLUSES. CECOSTOMY SITE TO RLQ WITH SMALL AMOUNT OF YELLOWISH DRAINAGE, DRSG CDI. MIDLINE INCISION WITH ABD PAD IN PLACE CDI. LLQ JT SITE WITH DRAINAGE SPONGE DRSG IN PLACE. SCANT DRY DRAINAGE IN PLACE. PT DENIES ANY PAIN/DISCOMFORT AT THIS TIME. TOLERATING CCHO DIET WELL. CALL LIGHT IN REACH NEEDS ATTENDED TO.
[2019-01-23 08:10] VITALS: BP 122/64
--- NOTE | 2019-01-23 09:49 | NUR ---
RECEIVED A CALL FROM DR. VORA UPDATED ON PT'S CONDITION OVERNIGHT. MADE AWARE COLOSTOMY STOOLS ARE STILL WATERY. RECEIVED T.O. TO DISCONTINUE ATB ZOSYN AT THIS TIME. NO FURTHER ORDERS.
[2019-01-23 10:45] LABS: PLATELET COUNT 354 x10^3mcL (130-400)
[2019-01-23 11:02] LABS: RED CELL DISTRIBUTION WIDTH 21.7 % (11.5-14.5)
[2019-01-23 11:31] LABS: BAND NEUTROPHIL 2 % (0-10); MONOCYTE 3 % (0-7); SEGMENTED NEUTROPHILS 88 % (37-75)
[2019-01-23 11:33] LABS: acanthocyte (spur cell) 3+; rbc morphology (normal/abnorm) ABNORMAL (NORMAL); schistocyte (helmet cell) 1+
[2019-01-23 11:34] LABS: PLATELET MORPHOLOGY PLATELETS INCREASED
[2019-01-23 11:53] VITALS: BP 109/63
--- NOTE | 2019-01-23 12:22 | NUR ---
REASON FOR EVALUATION: SURGICAL WOUNDS SKIN ASSESSMENT DONE AND COLOSTOMY/ WOUND CARES TEACHING DONE WITH PT. ALL QUESTION ANSWERED. PT. EXPLAINED THAT SHE HAS [employer] SUPPORT SYSTEM AND HOME HEALTH WILL HELP HER. PT. VERBALIZES UNDERSTANDING ALL TEACHING, WILL CONTINUE TO REINFORCE. PRIMARY RN NOTIFIED. INTEGUMENTARY: -LLQ ABD J TUBE STOMA SITE, DRY AND CLEAN, CHRISSY-STOMA SKIN INTACT -MID ABDOMINAL SURGICAL WOUNDS 24 CM IN LENGTH, MULTIPLE SUTURES LINE AND ABDULLAHI IN PLACE, WOUND BED IS RED WITH SMALL AMOUNT OF SEROUSSANGINOUS DRAINAGE, NO ODOR, PAIN 2/10, NO S/S OF WOUND DEHISCENCE -RLQ ABD, COLOSTOMY WITH 45MM(2 INCH) AND 1 CM TALL, SUTURES IN PLACE, BEFFY RED IN COLOR FUNCTIONING WITH LIQUIDS STOOL OUTPUT. CHRISSY-STOMA SKIN CLEAN AND INTACT. -RIGHT LOWER ABD, BELOW COLOSTOMY 2 SURGICAL SITES S/P CECOSTOMY TUBE REMOVAL, SMALLEST MEASURE 0.5X1X0.3 CM WOUND BED IS PINK, MOIST,NO ODOR NO DRAINAGE, LARGEST 0.5X2X0.3CM WOUND BE IS PINK WITH SMALL AMOUNT OF SEROUS DRAINAGE, NO ODOR, CHRISSY-WOUNDS SKIN INTACT. RECOMMENDATIONS: OSTOMY CARE PLEASE FOLLOW MANUFACTURE GUIDELINES FOR APPLICATION/CARE OF OSTOMY. -PLEASE CUT THE STOMA OPENING IN ROUND SHAPE WITH 45 MM (2 INCHES) -WASH THE STOMA AND SURROUNDING SKIN THOROUGHLY WITH WET PAPER TOWER AND DRY SKIN COMPLETELY -APPLY STOMA ADHESIVE PASTE TO THE WAFER, NEAR THE EDGE OF STOMA OPENING, PAT FLAT WITH DAMP FINGER. -APPLY THE SEALED BUTTOM POUCH AT THE DIAGONAL, IN THE DIRECTION OF LEG, ONM THE SAME SIDE OF BODY, THAT STOMA WAS CREATED. -FOR ONE PIECE SYSTEM CHANGE THE POUCH Q5-7 DAYS PRN LEAK. FOR TWO PIECE SYSTEM, CHANGE WAFER Q5-7 DAYS. -EMPTY THE POUCH WHEN 1/3 FULL. DO NOT WASH OR RINSE WHILE APPLIANCE IS ATTACHED. -IF THE SKIN IRRITATION PRESENTS, APPLY STOMA ADHESIVE POWDER TO THE IRRITATED SKIN BY BA. SURGICAL WOUNDS CARE: CLEANSE MID ABDOMINAL AND RIGHT LOWER ABD S/P CECOSTOMY SITE SURGICAL WOUNDS WITH NS. PAT DRY APPLY ADAPTIC DRESSING AND COVER WITH ABDOMINAL PAD SECURED WITH TAPE QD AND PRN IF SOILING -OFFLOAD BILATERAL HEELS BY PLACING PILLOWS UNDER CALVES UNLESS OTHERWISE CONTRAINDICATED -TURN AND REPOSITION Q2H -CONTINUE TO FOLLOW RD RECOMMENDATIONS ALL ABOVE RECOMMENDATIONS DISCUSSED WITH PRIMARY RN PLEASE CONTACT WOUND CARE NURSE FOR ANY QUESTION AND CHANGE OF WOUND CONDITION.
--- NOTE | 2019-01-23 12:30 | NUR ---
Follow-up Nutrition Assessment- 244T/B [facility] MR FU Dx: ABD pain/bowel obstruction/possible tumor Labs: (01/23) BG 167H, CREAT 0.5L Meds: D10, Dilaudid, humulin 3ml, Zofran, zosyn, ferrous sulfate, KCl 10% 20 meq Provides: 576 kcal, 29 g protein Diet order: CCHO (mechanically soft-chopped) Weights: (01/14) 50 kg Skin: sutures with interrupted gilda abd area S/P colon resection GI: colostomy, cecostomy, j-tube Prateek: 19 Edema: none Last BM: 01/22/19 RDN visit (01/23): per pt's RN Paola, enteral nutrition Glucerna 1.2 (GJ tube) @ 20 ml/hr, goal 50ml/hr, FWF 50 ml q4hr was DC on 01/22 at 10 am. Pt is tolerating CCHO (mechanically soft-chopped) diet with no N/V. Pt has good appetite and has been eating about 60% of her meals. Estimated Nutritional Needs Based on actual body weight 50.3 kg Energy: 1257- 1509 kcal/d (25-30 kcal/kg-maintenance) Protein: 50.3 - 60 g/d (1.0-1.2 g/kg)-maintenance and preservation of lean body mass Fluid: 6483-8854 ml/d (1 ml/kcal-fluid balance) or per doctor Nutrition Diagnosis 1. Increased nutrient needs related to surgical procedure as evidenced by colostomy and cecostomy. (ongoing) Intervention 1. Continue CCHO mechanically soft chopped diet. Monitor/Evaluate Previous goal: progress to CLD when appropriate (met) Goal: PO intake at least 75% of estimated needs Monitor: PO intake/tolerance, Labs, GI function F/U in 3-5 days as moderate risk: 01/26-
--- NOTE | 2019-01-23 12:31 | NUR ---
Continue CCHO mechanically soft chopped diet.
--- NOTE | 2019-01-23 15:53 | NUR ---
PHYSICAL THERAPY DAILY NOTES CO-SIGN All documentation done by the Manager Market Development for 01/23/19 has been reviewed. I agree with the documentation. Reviewed/Co-Signed by: Ti Le PT Documentation Done by:HENRY RENE PTA
[2019-01-23 17:57] VITALS: BP 120/68
--- NOTE | 2019-01-23 18:51 | NUR ---
PT RESTING COMFORTABLY AT THIS TIME. DENIES ANY DISCOMFORT. TOLERATING ACTIVITY WELL. TOLERATING MEALS WELL. NO EPISODES OF N/V AT THIS TIME. VOIDING FREELY. ENCOURAGE TO DRINK MORE WATER. CALL LIGHT IN REACH NEEDS ATTENDED TO.
--- NOTE | 2019-01-23 19:30 | NUR ---
CARE ASSUMED FROM OUTGOIN RN. PT RESTING COMFORTABLY IN BED. FAMILY AT BEDSIDE. NO ACUTE DISTRESS NOTED. NO SOB ON RA. DENIES CHEST PAIN/PRESSURE. IV RFA PATENT AND INTACT. COLOSTOMY BAG PATENT AND INTACT. JTUBE INTACT. ABD DRESSING CDI. BED IN LOWEST POSITION. CALL LIGHT WITHIN REACH. WILL CONTINUE TO MONITOR.
[2019-01-23 20:59] VITALS: BP 116/63
--- NOTE | 2019-01-24 00:11 | NUR ---
PT RESTING IN BED COMFORTABLY. NO ACUTE DISTRESS NOTED. EVEN AND UNLABORED BREATHING NOTED. BED IN LOWEST POSITION. CALL LIGHT WITHIN REACH. WILL CONTINUE TO MONITOR.
[2019-01-24 06:08] VITALS: BP 141/66
--- NOTE | 2019-01-24 07:40 | NUR ---
RC'D PT RESTING IN BED WITH NO APPARENT SIGNS OF DISTRESS. A/A/O/X4, SPEECH CLEAR AND APPRORPIATE. DENIES TEE/DIZZINESS. MEDSURG. DENIES CHEST PAIN/PRESSURE. PALP PULSES. RESPIRATIONS EQUAL AND UNLABORED. LUNGS CTA. ON RA, DENIES SOB. ABDOMEN NONTENDER AT THIS TIEM. ACTIVE BS. DENIES N/V. RIGHT COLOSTOMY IN PLACE WITH DARK GREEN DRAINGE. L JTUBE IN PLACE, CLAMPED. GENERALIZED WEAKNESS. AMBULATORY. MIDLINE ABDOMINAL DRESSING IN PLACE, CDI. CECOSTOMY DRESSING IN PLACE. PT DENIES PAIN AT THIS TIME. IV PATENT AND ITNACT. BED IN LOW POSITION. CALL LIGHT IN REACH. WILL CONTINUE TO MONITOR
--- NOTE | 2019-01-24 08:55 | NUR ---
AM MEDICATION SGIVEN. PT TOLERATED WELL. RESPIRATIONS EQUAL AND UNLABORED. ON RA, DENIES SOB. PT DENIES PAIN AT THIS TIME. BED IN LOW POSITION. CALL LIGHTIN REACH. WILL CONTINUE TO MONTIOR
[2019-01-24 09:49] VITALS: BP 110/63
--- NOTE | 2019-01-24 11:40 | NUR ---
PT RESTING IN BED WITH NO APPARENT SIGNS OF DISTRESS. RESPIRATIOSN EQUAL AD UBNLABORED. ON RA, DENIES SOB. PT DENIES PAIN AT THIS TIME. PT PROVIDEDCARE TO COLOSTOMY BAG SUCCESSFUL;LY. ALL QUESTIONS AND CONCERNS ADDRESSED. BED IN OLOW POSITION. CALL LIGHT IN REACH. WILL CONTINUE TO [id number]
[2019-01-24 13:31] VITALS: BP 110/63
--- NOTE | 2019-01-24 15:59 | NUR ---
PHYSICAL THERAPY DAILY NOTES CO-SIGN All documentation done by the Setter Automatic Spinning Lathe for 01/24/19 has been reviewed. I agree with the documentation. Reviewed/Co-Signed by: Ti Le PT Documentation Done by:HENRY RENE PTA
--- NOTE | 2019-01-24 16:59 | NUR ---
DRESSING TO THE ABDOMEN CHANGED AT THIS TIME FOLLOWS: CLEANSED WITH NS, PATTED DRY, ADAPTIC APPLIEDWITH ABDOMINAL PAD AND SECURED IN PLACE WITH TAPE. PT TOLERATED WELL. SUTURES AND ABDULLAHI IN PLACE. PT EDUCATED ON PROPER CARE FOR SURGICAL WOUND. PT VERBALIZED UNDERSTANDING OF INSTRUCTIONS
--- NOTE | 2019-01-24 17:37 | NUR ---
PT PROVIDED WITH DC HOME INSTRUCTIONS. PT GIVEN EDUCATION AND INSTRUCTIONS OF PROPER COLOSTOMY AND DRESSING CARE. PT INFORMED TO KEEP DRESSING CLEAN AND DRY. PT PROVIDED WITH EDUCATION ON DRESSING CHANGE AND COLOSTOMY CARE. PT INFORMED THAT HOME HEALTH TO F/U WITH PT AND INFORMED ABOUT FOLLOW UP APPT WITH DR TOBIN AND PCP. PT INFORMED THAT IF WORSENING SIGNS AND SYMPTOMS WERE TO ARISE TO RETURN TO ED OR REPORT TO PCP. PT VERBALIZED UNDERSTANIONG OF INSTRUCTIONS. IV DC'D CATHETER INTACT. NO REDNESS/INFLAMMATION/DISCOMFORT NOTED. PT FREE OF ANUY APPARENT SIGNS OF DISTRESS WITH ALL PERSONAL BLEONINGS IN HAND
== END 2019-01-24 19:26 | disposition home health service (06) | DRG 329 ==
LOC: ED 06:51 → MU 09:08 → DU 09:08 → MU 10:15 → DU 01-15 18:14 → MU 01-20 07:22
PROVIDERS: Emergency Medicine; Internal Medicine; Internal Medicine Gastroenterology; Surgery; ADMIT Family Medicine
PROC: 0DBG8ZX Excision of Left Large Intestine, Via Natural or Artificial Opening Endoscopic, Diagnostic (ICD-10-PCS; 2019-01-15)
PROC: 0DTG0ZZ Resection of Left Large Intestine, Open Approach (ICD-10-PCS; 2019-01-16)
PROC: 0D9H3ZZ Drainage of Cecum, Percutaneous Approach (ICD-10-PCS; 2019-01-16)
PROC: 30233K1 Transfusion of Nonautologous Frozen Plasma into Peripheral Vein, Percutaneous Approach (ICD-10-PCS; 2019-01-16)
PROC: 30233N1 Transfusion of Nonautologous Red Blood Cells into Peripheral Vein, Percutaneous Approach (ICD-10-PCS; 2019-01-16)
PROC: 0D1L0Z4 Bypass Transverse Colon to Cutaneous, Open Approach (ICD-10-PCS; principal; 2019-01-16 08:00)
DX: C18.4 Malignant neoplasm of transverse colon (principal); K65.9 Peritonitis, unspecified; R64 Cachexia; Z68.1 Body mass index [BMI] 19.9 or less, adult; I10 Essential (primary) hypertension; Z88.6 Allergy status to analgesic agent; Z91.013 Allergy to seafood; E11.65 Type 2 diabetes mellitus with hyperglycemia
CPT/HCPCS: 45378; 82962; 88344; 88361; 94150; 97110-GP; 97116-GP; 97530-GP; C9113; J0330; J1170; J1200; J1610; J1644; J1815; J1940; J2175; J2250; J2270; J2310; J2405; J2543; J2704; J2710; J3010; J3475; J3480; J3490; J7030; J7040; J7050; J7131; P9016; P9059; Q0092

== ENCOUNTER 2019-01-26 16:05 | Inpatient (IN) | payer BC ==
[~2019-01-26] VITALS: Ht 154.9 cm; Wt 44.1 kg
[~2019-01-26 16:05] MED LIST: METFORMIN500 M1 PO
--- NOTE | 2019-01-26 17:13 | NUR ---
RECEIVED PATIENT FROM TRIAGE, PATIENT C/O N/V SINCE LAST NIGHT, UNABLE TO KEEP ANYTHING DOWN. PATIENT AAO X 4 (NAME, DATE, CONDITION AND LOCATION). EYES - [place]. PATIENT DENIES ABD PAIN AT THIS TIME. COLOSTOMY BAG NOTED ON RIGHT ABD. WILL CONTINUE TO MONITOR. RT AND LAB AT BEDSIDE//APR RN
[2019-01-26 17:21] LABS: BASOPHIL % 0.1 % (0-2)
[2019-01-26 17:22] LABS: RED CELL DISTRIBUTION WIDTH 23.6 % (11.5-14.5)
[2019-01-26 17:33] LABS: CALCIUM 9.6 mg/dL (8.5-10.1); CARBON DIOXIDE 26.8 mmol/L (21-32); CHLORIDE SERUM 95 mmol/L (98-107); CREATININE SERUM 0.9 mg/dL (0.6-1.0); GFR1 > 60 mL/min; GLUCOSE SERUM 327 mg/dL (74-106); POTASSIUM SERUM 3.4 mmol/L (3.5-5.1); SODIUM SERUM 132 mmol/L (136-145)
[2019-01-26 17:45] LABS: FREE T4 1.27 ng/dL (0.76-1.46); FREE THYROXINE INDEX 3.8 ug/dL (1.4-4.5); T4(THYROXINE) 9.5 ug/dL (4.7-13.3)
[2019-01-26 17:55] LABS: ALBUMIN 2.6 g/dL (3.4-5.0); ALKALINE PHOSPHATASE 142 U/L (46-116); ALT/SGPT 34 U/L (14-59); AST/SGOT 21 U/L (15-37); BILIRUBIN TOTAL 0.45 mg/dL (0.20-1.00); C REACTIVE PROTEIN 1.4 mg/dL (<=0.9)
[2019-01-26 17:58] LABS: CK-MB 1.1 ng/mL (0-3.6); acanthocyte (spur cell) 2+; rbc morphology (normal/abnorm) ABNORMAL (NORMAL)
[2019-01-26 18:09] LABS: T3 TOTAL 0.76 ng/mL
--- NOTE | 2019-01-26 18:18 | NUR ---
PLT = 7.23//APR RN
[2019-01-26 18:19] LABS: PLATELET COUNT 723 x10^3mcL (130-400)
--- NOTE | 2019-01-26 18:30 | NUR ---
CRITICAL VALUE RECEIVED FROM LAB, PLATELET = 723. DR MAC MADE AWARE../APR
--- NOTE | 2019-01-26 19:18 | NUR ---
IN AND OUT CATH DONE, URINE SAMPLE SENT TO LAB.//JAN RN
--- NOTE | 2019-01-26 19:23 | NUR ---
RECEIVED PT AWAKE, ALERT, RESPIRATIONS EVEN AND UNLABORED. DENIES PAIN. SAFETY PRECAUTIONS IN PLACE
[2019-01-26 19:26] LABS: UA SPECIFIC GRAVITY 1.025 (1.005-1.035); microscopic required? YES; urine erythrocyte TRACE (NEGATIVE)
[2019-01-26 19:48] LABS: ERYTHROCYTE SED RATE 66 mm/hr (0-30)
--- NOTE | 2019-01-26 21:04 | NUR ---
DRESSING CHANGE PERFORMED. LIGHT YELLOW DISCHARGE NOTED TO BE COMING OUT OF MID ABDOMINAL INCISION WITH REDNESS SURROUNDING INCISION. LEFT ABDOMINAL PACKED WOUND NOTED DRAINING BROWNISH YELLOW DRAINAGE. RIGHT OSTOMY NOTED WITH BLACK COLORED STOOL. OSTOMY APPEARED MOIST AND RED. RIGHT PACKED WOUND NOTED WITH BROWNISH YELLOW TINGED DISCHARGE NOTED. DRESSINGS AND OSTOMY CHANGED. WOUNDS TENDER TO TOUCH. PICTURES TAKEN AND PLACED IN CHART.
[2019-01-26 22:11] LABS: MAGNESIUM 1.9 mg/dL (1.8-2.4); PHOSPHOROUS 3.7 mg/dL (2.5-4.9)
[2019-01-26 22:13] LABS: CHOLESTEROL/HDL RATIO 3.8
--- NOTE | 2019-01-26 22:19 | NUR ---
REPORT GIVEN TO CHRIS GARCIA, ALL QUESTIONS AND CONCERNS WERE ADDRESSED.
--- NOTE | 2019-01-26 22:30 | NUR ---
PT WAS RECEIVED BY PRIMARY NURSE LUNA FROM ED. PT CAME IN DUE TO VOMITING. AAOX4. DENIES HEADACHE/DIZZINESS. NO SOB NOTED, LUNG SOUNDS CTA. DENIES CHEST PAIN/PRESSURE, RD=515. C/O NAUSEA AND VOMITING. W/ COLOSTOMY, STOMA IS PINK AND MOIST, NOTED BLACK WATERY OUTPUT. W/ SURGICAL INCISION W/ SUTURES ON THE MID-ABDOMEN, DRESSING CDI. W/ BLANCHABLE ERYTHEMA ON THE RIGHT NECK AND ECCHYMOSIS ON LUE. IV SITE ON THE RFA IS PATENT AND INTACT. SIDE RAILS UPX2. CALL LIGHT ON REACH. FAMILY AT BEDSIDE. ENDORSED TO PRIMARY NURSE LUNA FOR CONTINUITY OF CARE
[2019-01-26 22:49] VITALS: BP 98/69
[2019-01-26 22:57] VITALS: Ht 154.9 cm; Wt 44.1 kg
--- NOTE | 2019-01-26 23:35 | NUR ---
RECIEVED PT IN NO ACUTE DISTRESS. IV TO RH PATENT AND INFUSING. ORIENTED TO ROOM. BED IN LOWEST POSITION, 2 SIDE RAILS UP, CALL LIGHT IN REACH. INSTRUCTED TO CALL FOR ASSISTANCE.
--- NOTE | 2019-01-27 03:50 | NUR ---
BREATHING EVEN AND UNLABORED ON RA, NO ACUTE DISTRESS NOTED. WILL CONTINUE TO MONITOR.
--- NOTE | 2019-01-27 06:46 | NUR ---
OLD COLOSTOMY BAG LEAKING LIQUID DARK GREEN OUTPUT. PT CLEANED AND DRY. NEW COLOSTOMY BAG APPLIED. NO N/V. NO ACUTE DISTRESS NOTED. WILL ENDORSE TO ONCOMING RN.
[2019-01-27 06:50] VITALS: BP 130/69
--- NOTE | 2019-01-27 07:10 | NUR ---
RECIEVED PT FROM NIGHT NURSE. PT IS LAYING DOWN IN BED WITH HOB UP AND LIGHT ON. PT LOOKS TO BE IN NO ACUTE DISTRESS AND DENIES ANY PAIN AT THIS TIME. IV SITE LOOKS PATENT WITH NO SIGNS OF ERYTHEMA OR SWELLING. DRESSING TO MID ABD IS CLEAN, DRY AND INTACT. BED IN LOWEST POSITION. CALL LIGHT WITHIN REACH. WILL CONTINUE TO MONITOR.
[2019-01-27 07:24] LABS: BASOPHIL % 0 % (0-2); PLATELET COUNT 670 x10^3mcL (130-400); RED CELL DISTRIBUTION WIDTH 23.5 % (11.5-14.5)
[2019-01-27 07:34] LABS: CALCIUM 8.4 mg/dL (8.5-10.1); CARBON DIOXIDE 27.1 mmol/L (21-32); CHLORIDE SERUM 103 mmol/L (98-107); CREATININE SERUM 0.5 mg/dL (0.6-1.0); GFR1 > 60 mL/min; GLUCOSE SERUM 223 mg/dL (74-106); POTASSIUM SERUM 3.7 mmol/L (3.5-5.1); SODIUM SERUM 140 mmol/L (136-145)
[2019-01-27 08:58] VITALS: BP 87/54
[2019-01-27 09:15] VITALS: BP 108/55
--- NOTE | 2019-01-27 10:15 | NUR ---
DR. CARRERO AT BEDSIDE. SUTURES REMOVED AND SURGICAL INCISION AND DRESSING CHANGE PREFORMED BY DR. CARRERO. PT TOLERATED WELL. BED IN LOWEST POSITION. WILL CONTINUE TO MONITOR.
[2019-01-27 13:05] VITALS: BP 125/60
--- NOTE | 2019-01-27 13:05 | NUR ---
BOLUS FLUIDS COMPLETED. BLOOD PRESSURE AT 125/60 WITH MAP OF 91. HEART RATE 92. FAMILY MEMBERS AT BEDSIDE. WILL CONTINUE TO MONITOR.
[2019-01-27 17:14] VITALS: BP 134/55
--- NOTE | 2019-01-27 18:47 | NUR ---
COLOSTOMY BAG LEAKING AROUND STOMA SITE. CHANGED COLOSTOMY BAG CONTAINING DARK GREEN LIQUID STOOL. STOMA IS RED AND MOIST. PT TOLERATED WELL. PASSING GAS. WILL CONTINUE TO MONTIOR.
--- NOTE | 2019-01-27 19:01 | NUR ---
PT LAYING DOWN IN BED WITH HOB UP. RESPIRATIONS EVEN AND UNLABORED ON ROOM AIR. PT LOOKS TO BE IN NO ACUTE DISTRESS AT THIS TIME. PT STATES THAT SHE IS PASSING ALOT OF GAS, COLOSTOMY DRAINING DARK GREEN LIQUID STOOL. BED IN LOWEST POSITIION. CALL LIGHT WITHIN REACH. WILL ENDORSE TO ONCOMING SHFIT.
--- NOTE | 2019-01-27 19:35 | NUR ---
AOX4. MED SURG. LUNGS CLEAR ON RA. PULSES PALPABLE. NO EDEMA. COLOSTOMY BAG TO RUQ WITH LIQUID DARK GREEN OUTPUT. CECOSTOMY TO RLQ DRESSING CDI. JEJUNOSTOMY TO LLQ DRESSING CDI. C/O N/V, RECENTLY MEDICATED BY DAY SHIFT RN WITH ZOFRAN IVP. VOIDS FREELY. AMBULATORY. MIDLINE ABD SURGICAL INCISION WITH SUTURES, DRESSING CDI. DENIES PAIN. IV TO RH, PATENT AND INFUSING. BED IN LOWEST POSITION, 2 SIDE RAILS UP, CALL LIGHT IN REACH. INSTRUCTED TO CALL FOR ASSISTANCE.
[2019-01-27 21:52] VITALS: BP 117/53
--- NOTE | 2019-01-28 00:50 | NUR ---
BREATHING EVEN AND LABORED ON RA. NO ACUTE DISTRESS NOTED. WILL CONTINUE TO MONITOR.
[2019-01-28 05:51] VITALS: BP 138/58
[2019-01-28 06:37] LABS: CALCIUM 8.2 mg/dL (8.5-10.1); CARBON DIOXIDE 29.4 mmol/L (21-32); CHLORIDE SERUM 101 mmol/L (98-107); CREATININE SERUM 0.4 mg/dL (0.6-1.0); GFR1 > 60 mL/min; GLUCOSE SERUM 99 mg/dL (74-106); SODIUM SERUM 136 mmol/L (136-145)
[2019-01-28 06:51] LABS: POTASSIUM SERUM 2.9 mmol/L (3.5-5.1)
--- NOTE | 2019-01-28 06:56 | NUR ---
K: 2.9, DR. JOHNSTON NOTIFED VIA [employer]. NO ACUTE DISTRESS NOTED. NO ACUTE CHANGES. WILL ENDORSE TO ONCOMING RN
--- NOTE | 2019-01-28 07:10 | NUR ---
RECIEVED PT FROM NIGHT NURSE. PT IS LAYING DOWN IN BED RESTING WITH EYES CLOSED. RESPIRATIONS EVEN AND UNLABORED. PT LOOKS TO BE IN NO ACUTE DISTRESS AT THIS TIME. IV SITE LOOKS PATENT WITH NO SIGNS OF ERYTHEMA OR SWELLING, IV H/L. BED IN LOWEST POSITION. CALL LIGHT WITHIN REACH. SITTER AT BEDSIDE. WILL CONTINUE TO MONITOR.
--- NOTE | 2019-01-28 07:20 | NUR ---
RECIEVED PT FROM NIGHT NURSE. PT IS LAYING DOWN IN BED WITH HOB UP. RESPIRATIONS EVEN AND UNLABORED ON ROOM AIR. PT LOOKS TO BE IN NO ACUTE DISTRESS AT THIS TIME AND STATES THAT FEELS THOUGH HAS AN "ACID FEELING IN THE STOMACH." IV SITE IS PATENT WITH NO SIGNS OF ERYTHEMA OR SWELLING WITH IV FLUIDS INFUSING. COLOSTOMY DRAINING DARK GREEN LIQUID STOOL. ABD INCISIONAL DRESSING IS CLEAN, DRY AND INTACT. BED IN LOWEST POSITION. CALL LIGHT WITHIN REACH. WILL CONTINUE TO MONITOR.
[2019-01-28 07:24] LABS: BASOPHIL % 0.1 % (0-2)
[2019-01-28 07:26] LABS: RED CELL DISTRIBUTION WIDTH 24.1 % (11.5-14.5)
[2019-01-28 07:51] LABS: PLATELET COUNT 539 x10^3mcL (130-400)
--- NOTE | 2019-01-28 08:30 | NUR ---
PT DRESSING TO MIDLINE OF ABD CHANGED. SHOWS SOME SANGUINEOUS ON ISLAND DRESSING. DRESSING CDI. COLOSTOMY BAG CHANGED TO RUQ. PT TOLERATED WELL. BED IN LOWEST POSITION. CALL LIGHT WITHIN REACH. WILL CONTINUE TO MONITOR.
[2019-01-28 09:11] VITALS: BP 122/57
--- NOTE | 2019-01-28 11:15 | NUR ---
ASSISTED PT TO THE RESTROOM. PT WAS STEADY ON FOOT AND MOVED CLOSLY. PT STATED FEELING A LITTLE NAUSEA BUT THINKS IT BECAUSE SHE NEEDS TO USE THE RESTROOM. PT BACK IN BED. LOOKS TO BE IN NO ACUTE DISTRESS AT THIS TIME. NO EPISODES OF VOMITING. BED IN LOWEST POSITION. WILL CONTINUE TO MONITOR.
--- NOTE | 2019-01-28 14:32 | NUR ---
SPOKE WITH MOTHER OF PT WHO SAID THAT PT IS STILL HAVING HALLUCINATIONS AND TALKING TO HIMSELF. MOTHER STATES THAT SHE FEELS HE IS DOING BETTER BUT STILL HAVING TIMES OF TALKING TO SELF AND PARANOIA.
[2019-01-28 17:00] VITALS: BP 137/61
--- NOTE | 2019-01-28 18:08 | NUR ---
PT LAYING DOWN IN BED WITH HOB UP TALKING WITH FRIEND WHO IS SITTING AT BEDSIDE. PT LOOKS TO BE IN NO ACUTE DISTESS AT THIS TIME AND DENIES ANY NAUSEA. COLOSTOMY EMPTIED DARK GREEN WATERY STOOL. DRESSING TO MIDLINE ABD SHOWING SMALL AMOUNT OF DRAINAGE, DRESSING INTACT. IV SITE IS PATENT WITH NO SIGNS OF ERYTHEMA OR SWELLING WITH IV FLUIDS INFUSING. BED IN LOWEST POSITION. CALL LIGHT WITHIN REACH. WILL ENDORSE TO ONCOMING SHIFT.
--- NOTE | 2019-01-28 20:04 | NUR ---
PT CURRENTLY RESTING IN BED, NO ACUTE DISTRESS. A/O X4. NO TELE, MED/SURG. DENIES CHEST PAIN. PULSES PALPABLE IN ALL EXTREMITIES, NO EDEMA NOTED. LUNG SOUNDS CTA BILATERALLY, DENIES SOB. RUQ COLOSTOMY, MINIMAL DARK GREEN WATERY STOOL NOTED IN COLOSTOMY BAG. RLQ CECASTOMY, DRESSING CDI. LLQ JEJUNOSTOMY, DRESSING CDI. MIDLINE ABD INCISION, DRESSING INTACT, MINIMAL SEROSANGUINOUS DRAINAGE NOTED. VOIDING WELL. GENERALIZED WEAKNESS, AMBULATORY WITH ASSIST. IV PATENT AND INTACT. BED IN LOWEST POSITION, SIDE RAILS UP X2, CALL LIGHT WITHIN REACH. WILL CONTINUE TO MONITOR.
[2019-01-28 20:28] VITALS: BP 112/63
--- NOTE | 2019-01-28 22:02 | NUR ---
PT C/O PAIN AND TENDERNESS AT IV SITE, IV IN RFA FOUND LEAKING, DC'D, CATHETER INTACT. NEW IV STARTED IN RFA, PT TOLERATED WELL. WILL CONTINUE TO MONITOR.
--- NOTE | 2019-01-29 00:37 | NUR ---
EMPTIED COLOSTOMY BAG, APPROXIMATELY 250ML OF DARK GREEN WATERY STOOL NOTED. PT CURRENTLY RESTING IN BED, NO ACUTE DISTRESS. WILL CONTINUE TO MONITOR.
[2019-01-29 05:06] VITALS: BP 123/59
--- NOTE | 2019-01-29 06:13 | NUR ---
PT SLEPT PERIODICALLY THROUGHOUT NIGHT, NO ACUTE DISTRESS. ALL NEEDS MET AND ATTENDED TO. NO SIGNIFICANT CHANGES. IV PATENT AND INTACT. APPROXIMATELY 250ML OF DARK GREEN WATERY STOOL EMPTIED FROM COLOSTOMY BAG. ABD INCISIONS DRESSING CHANGES, WOUND PHOTOS TAKEN. BED IN LOWEST POSITION, SIDE RAILS UP X2, CALL LIGHT WITHIN REACH. WILL ENDORSE CARE TO ONCOMING NURSE.
[2019-01-29 07:09] LABS: BASOPHIL % 0.1 % (0-2)
[2019-01-29 07:12] LABS: RED CELL DISTRIBUTION WIDTH 23.5 % (11.5-14.5)
[2019-01-29 07:13] LABS: PLATELET COUNT 598 x10^3mcL (130-400)
[2019-01-29 07:30] LABS: CALCIUM 8.4 mg/dL (8.5-10.1); CARBON DIOXIDE 31.1 mmol/L (21-32); CHLORIDE SERUM 101 mmol/L (98-107); CREATININE SERUM 0.4 mg/dL (0.6-1.0); GFR1 > 60 mL/min; GLUCOSE SERUM 117 mg/dL (74-106); MAGNESIUM 1.5 mg/dL (1.8-2.4); POTASSIUM SERUM 3.4 mmol/L (3.5-5.1); SODIUM SERUM 139 mmol/L (136-145)
[2019-01-29 09:09] VITALS: BP 128/77
--- NOTE | 2019-01-29 09:12 | NUR ---
AAO TIMES 4. FAMILY PRESENT, SUPPORTIVE. BRICK VENEER MAKER SHARMAINE PRESENT, TELLING THEM THE PLAN OF CARE. LUNGS CTA. NO SOB. O2 SAT ON RA 99%. BS'S HYPOACTIVE. COLOSTOMY BAG DRAINING LIQUID DARK BROWN STOOL TO BAG. PERIPHERAL PULSES PALPABLE. NO EDEMA. DRESSINGS TO ABDOMEN CDI. BOTH GI TUBES WITH DRESSINGS SURROUNDING CDI. COOPERATIVE. NO C/O PAIN. DENIES N/V AT THIS TIME. MED SURG.
[2019-01-29 09:14] LABS: ovalocyte/elliptocyte 1+; target cell (codocyte) 1+
[2019-01-29 09:15] LABS: rbc morphology (normal/abnorm) ABNORMAL (NORMAL); schistocyte (helmet cell) 1+
--- NOTE | 2019-01-29 11:22 | NUR ---
Initial Nutrition Assessment Dx: Vomiting, Dehydration PMHx: Colon CA, DM, HTN PSHx: Colectomy w/colostomy bag, Hemorridectomy Labs: (01/29) Na 139, K 3.4L, BG 117H, BUN 3L, Cr 0.4L, TG 331H, A1c 11.2H, WBC 7.8H/H 9.2L/28L BG readings (01/27-01/29): 88-255 mg/dL with some readings > 180 mg/dL. Insulin coverage is provided PRN. Meds: D50%, Flagyl, Glucotrol, Humulin, KCl, Lactinex, Mg Sulfate, [place], NSIV, Tylenol, Zofran, Rocephin Diet: FLD, CCHO with glucerna TID w/meals PO Intake: (01/28) B: 10% D: 40% (01/27) D: 40% Ht: 61" (155 cm) Wt: 82# (37.3 kg) BMI: 15.5 (Underweight) IBW: 105# %IBW: 78% UBW: 115-120# Age: 63 y/o female Food Allergies: Shellfish Skin: Midline abdominal incision from recent sx, blanchable erythema to right neck, and ecchymosis to LUE Prateek: 19 Edema: None GI: Last BM x colostomy bag output 475 mL (01/29) with dark green, watery stools Emesis: (01/29) 100 mL (01/28) 150 mL Per H&P, pt. admitted with multiple episodes of emesis x 1 day associated with pain around the colostomy bag site. Of note, pt. recently admitted earlier in January for abdominal pain and dx colon CA. Abdominal/Pelvic CT scan conducted on 01/27/19 with findings suggesting post OP changes of the colon with right side colostomy and possible colitis. No bowel obstruction present per provider notes. Pt. continues with multiple episodes of emesis every time PO medications are administered per provider progress notes. Pt. not feeling well during visit, and nutrition interview was limited. Continues to c/o nausea and vomiting at this time. Endorses weight loss -10# x1 month from recent surgical procedure and not being able to tolerate food and beverages. Discussed nutrition recommendations with AYANNA Galvez, who was agreeable to implementing interventions. T: Appears underweight/malnourished, Unintentional weight loss -10# x1 month Problem with: +N/V, colostomy bag present with liquid stools Problems with: Chewing: N Swallowing: N Current appetite: Poor Recent wt change: -10# x1 month %wt change: 10.8% x 1 month; significant Vitamin/Supplement use: None Special diet at home: Regular, [facility] Physical activity: None d/t chronic medical conditions Education: Notified pt. of [facility] diet and associated restrictions. Pt. states that she had received diet educational handouts (NCM on [facility] diet- Type II DM Nutrition Therapy/[facility] counting) during previous visit by internal wholesaler. Declined further verbal diet education/review at this time d/t not feeling well during visit. Emphasized the importance of consuming Glucerna supplement for decreased time for surgical wound healing and prevention of further weight losses. Estimated Nutritional Needs Based on actual body weight 37.3 kg: Energy: 3019-3443 kcal/d (35-37 kcal/kg-weight gain promotion, wound healing) Protein: 56-63 g/d (1.5-1.7 g/kg-weight gain, wound healing support) Fluid: 4606-5435 ml/d (1 ml/kcal-fluid balance) or per doctor Nutrition Diagnosis 1. Inadequate PO intake r/t current diet order and reported poor appetite 2/2 medical condition AEB PO intake meeting <75% estimated calorie and protein needs. 2. Increased nutrient needs r/t increased metabolic demands and recent reported unintentional weight loss AEB presence of recent sx wound to mid-abdominal region, significant -10# weight loss x 1 month (10.8%), and underweight BMI 15.5. 3. Altered nutrition related laboratory values r/t endocrine dysfunction and acute illness AEB measured BG accuchecks with elevated readings >180 mg/dL x 3 days and measured A1c 11.2. Intervention/RD recommendations 1. Continue CCHO, FLD w/Glucerna TID as ordered and as tolerated. Glucerna TID provides 660 calories and 30 g protein. 2. Consider adding multi-vitamin (Thergran) QD for increased nutrient needs. 3. Provide opportunity for pt. to verbalize/request for FP as aligned with current therapeutic diet to prevent further weight loss. None stated at this time. Monitor/Evaluate Goal: PO intake at least 50% of estimated needs with acceptable tolerance within 2-3 days Monitor: PO intake, Labs, GI function-improvement on N/V, diet tolerance, BG readings <180 mg/dL F/U in 2-3 days as high risk (01/31-02/01)
--- NOTE | 2019-01-29 15:32 | NUR ---
DR VORA CHANGED PATIENTS DRESSING. HE REMOVED THE IODOFORM PACKING FROM THE MAIN INCISION AND ALSO FROM THE INCISIONS THE 2 TUBES WERE REMOVED FROM. I APPLIED 4" GAUZE TO TOP OF THE WOUNDS, AND APPLED ABD PAD TO TOP OF ALL THE WOUNDS. THE WOUNDS WERE ALL HEALING, NO ERYTHEMA TO BORDERS OF WOUNDS, AND THE INSIDES OF THE WOUNDS ARE ALL GRANULATING.
--- NOTE | 2019-01-29 15:59 | NUR ---
PHYSICAL THERAPY NOTE PATIENT REFUSED EVAL SECONDARY TO DIZZINESS AND ABDOMINAL PAIN AT THIS TIME EVAL TO BE PERFORMED NEXT SESSIONS.
[2019-01-29 17:00] VITALS: BP 115/55
--- NOTE | 2019-01-29 17:56 | NUR ---
AAO TIMES 4. MED SURG PATIENT. NO SOB. NO C/O PAIN. COLOSTOMY BAG DRAINED 500 ML OF DARK BROWNISH GREEN STOOL, WATERY TO COLOSTOMY BAG. COOPERATIVE AND PLEASANT. IV SITE CDI.
--- NOTE | 2019-01-29 20:00 | NUR ---
PT A/A/O X4. DENIES DIZZINESS AND HEADACHE. BREATH SOUNDS CLEAR. BREATHING EVEM AND UNLABORED ON ROOM AIR. DENIES CHEST PAIN AND PRESSURE. BOWEL SOUNDS ACTIVE. NO C/O N/V AND ABD PAIN. COLOSTOMY BAG NOTED ON ABDOMEN INTACT WITH DARK GREEN WATERY DRAIN NOTED. DRESSING NOTED ON MID ABDOMEN C/D/I. IV INTACT ON THE RIGHT FOREARM INFUSING WITH NS AT 50 ML/HR. MADE PT COMFORTABLE. PLACED CALL LIGHT WITH IN REACH. WILL CONTINUE TO MONITOR.
[2019-01-29 20:58] VITALS: BP 145/65
--- NOTE | 2019-01-30 00:26 | NUR ---
PT C/O NAUSEA. GAVE PT ZOFRAN IVP. PT TOLERATED IT WELL. WILL CONTINUE TO MONITOR.
--- NOTE | 2019-01-30 03:40 | NUR ---
PT C/O PAIN ABD PAIN ON THE COLOSTOMY SITE. GAVE PT NORCO PO. PT TOLERATED IT WELL. WILL CONTINUE TO MONITOR.
[2019-01-30 05:19] VITALS: BP 118/56
--- NOTE | 2019-01-30 05:49 | NUR ---
PT QUIET AND RESTING. DENIES NAUSEA AND PAIN THUS FAR. COLOSTOMY BAG INTACT WITH DARK GREEN FLUID NOTED. DRESSING ON THE ABD C/D/I. IV INTACT AMD INFUSING ORDERED. MADE PT COMFORTABLE. WILL ENDORSE TO THE AM NURSE ACCORDINGLY
[2019-01-30 07:32] LABS: CHLORIDE SERUM 100 mmol/L (98-107); CREATININE SERUM 0.3 mg/dL (0.6-1.0); GFR1 > 60 mL/min; GLUCOSE SERUM 100 mg/dL (74-106); MAGNESIUM 1.7 mg/dL (1.8-2.4); SODIUM SERUM 136 mmol/L (136-145)
[2019-01-30 07:37] LABS: PLATELET COUNT 475 x10^3mcL (130-400); POTASSIUM SERUM 2.7 mmol/L (3.5-5.1); RED CELL DISTRIBUTION WIDTH 23.7 % (11.5-14.5)
--- NOTE | 2019-01-30 07:40 | NUR ---
RC'D PT RESTING IN BED WITH NO APPARENT SIGNS OF DISTRESS. A/A/O/X4, SPEECH CLEAR AND APPROPRIATE. DENIES TEE. MEDSURG. DENIES CHEST PAIN/PRESSURE. PALP PULSES, NO EDEMA NTOED. RESPIRATIONS EQUAL AND UNLABORED. LUNGS CTA. ON RA, DENIES SOB. ABDOMEN SOFT. ACTIVE BS. DENIES N/V. VOIDS FREELY. GENERALIZED WEEAKNESS. AMB WITH ASSIST. MIDLINE ABDOMNAL DRESSING IN PLACE, CDI. COLOSTOMY BAG WITH DARK GREEN DRAINAGE, WNL. IV PATENT AND INTACT. BED IN LOW POSITION. CALL LIGHT IN REACH. WILL CONTINUE TO MONITOR
--- NOTE | 2019-01-30 08:41 | NUR ---
AM MEDICATIONS GIVEN. PT TOLERATED WELL. RESPIRATIONS EQUL AN DUNLABORED. ON RA, DENIES SOB. PT DENEIS EXCESSIVE PAIN AT THIS TIME. BED IN OLOW POSITION. CALL LIGHT IN REACH. WILL CONT TO MONITOR
[2019-01-30 09:26] VITALS: BP 127/62
--- NOTE | 2019-01-30 12:53 | NUR ---
REASON FOR EVALUATION: SURGICAL WOUNDS PER CHARGE NURSE DR. VORA SEEN THE PT. AND ABDULLAHI WERE REMOVED YESTERDAY, SKIN ASSESSMENT DONE AND COLOSTOMY/ WOUND CARES TEACHING DONE WITH PT. ALL QUESTION ANSWERED. PT. VERBALIZES UNDERSTANDING ALL TEACHING, PT. STATE" I KNOW HOW TO EMPTY THE BAG. BUT I NEED SOME ONE ASSIST ME TO BR. I CALLED 5 TIMES THIS MORNING AND NO ONE TAKE ME TO BR" PRIMARY RN NOTIFIED PT'S STATEMENT AND PLAN OF CARE DISCUSSED WITH PRIMARY RN INTEGUMENTARY: -LLQ ABD SURGICAL WOUND S/P J TUBE REMOVAL, 2X0.5X1 CM WITH WOUND BED RED AND MOIST, CHRISSY WOUND INTACT. -MID ABDOMINAL SURGICAL WOUNDS 24 CM IN LENGTH, MULTIPLE SUTURES LINES WITH POST ABDULLAHI REMOVAL WHICH CREATED MULTIPLE WOUND BEDS, TOTAL OF 2 WOUND SITES TO MID ABDOMINAL, ABOVE UMBILICAL [id number], BELOW UMBILICAL 6X2X1 CM, WOUND BED IS RED WITH MODERATE AMOUNT OF SEROUSSANGINOUS DRAINAGE, NO ODOR, PAIN 3/10, NO S/S OF WOUND DEHISCENCE -RLQ ABD, COLOSTOMY WITH 45MM (2 INCH) AND 1 CM TALL, SUTURES IN PLACE, BEFFY RED IN COLOR FUNCTIONING WITH LIQUIDS STOOL OUTPUT. CHRISSY-STOMA SKIN CLEAN AND INTACT. -RIGHT LOWER ABD, BELOW COLOSTOMY 2 SURGICAL SITES S/P CECOSTOMY TUBE REMOVAL, SMALLEST MEASURE 0.5X1X0.3 CM WOUND BED IS PINK, MOIST, NO ODOR NO DRAINAGE, LARGEST 0.5X2X0.3CM WOUND BE IS PINK WITH SMALL AMOUNT OF SEROUS DRAINAGE, NO ODOR, CHRISSY-WOUNDS SKIN INTACT. RECOMMENDATIONS: -FOLLOW UP APPOINTMENT WITH SURGEON 10-14 DAYS POST DISCHARGE -HOME HEALTH NURSE FOLLOW UP FOR WOUND CARE AND COLOSYOMY CARE UPON DISCHARGE -OSTOMY CARE PER PROTOCAL, PLEASE FOLLOW MANUFACTURE GUIDELINES FOR APPLICATION/CARE OF OSTOMY. -SURGICAL WOUNDS CARE: CLEANSE MID ABDOMINAL AND LLQ ABD, RIGHT LOWER ABD S/P CECOSTOMYSITE SURGICAL WOUNDS WITH NS. PAT DRY PACK WITH IODOFORM DRESSING AND COVER WITH ABDOMINAL PAD SECURED WITH TAPE QD AND PRN IF SOILING -OFFLOAD BILATERAL HEELS BY PLACING PILLOWS UNDER CALVES UNLESS OTHERWISE CONTRAINDICATED -TURN AND REPOSITION Q2H -CONTINUE TO FOLLOW RD RECOMMENDATIONS ALL ABOVE RECOMMENDATIONS DISCUSSED WITH PRIMARY RN PLEASE CONTACT WOUND CARE NURSE FOR ANY QUESTION AND CHANGE OF WOUND CONDITION.
[2019-01-30 13:17] LABS: ATYPICAL LYMPH 2 %; BAND NEUTROPHIL 0 % (0-10); BASOPHIL 0 % (0-2); MONOCYTE 2 % (0-7); PLATELET MORPHOLOGY PLATELETS INCREASED; SEGMENTED NEUTROPHILS 92 % (37-75)
[2019-01-30 13:18] LABS: acanthocyte (spur cell) 2+; ovalocyte/elliptocyte 2+; rbc morphology (normal/abnorm) ABNORMAL (NORMAL)
--- NOTE | 2019-01-30 14:13 | NUR ---
PT RESTING IN BED WITH NO APPARENT SIGNS OF DISTRESS. RESPIRATIONS EQUAL AND UNLABORED.ON RA, DENIES SOB. PT DENIES EXCESSIVE PAIN AT THIS TIME.BED IN OW POSITION. CALL LIGHT IN REACH., WILL COTNNUE TO MONITOR
[2019-01-30 16:49] VITALS: BP 127/71
--- NOTE | 2019-01-30 17:58 | NUR ---
PT RESTING IN BED WITH NO APPARENT SIGNS OF DISTRESS. MEDSURG. DENIES CHEST PAIN/PRESSURE. RESPIRAITONS EQUALA ND UNLABORED. ON RA, DENIES SOB. ABDOMINAL MINDLINE DRESSING IN PLACE, CDI. COLOSTOMY NOTED WITH DARK GREEN DRAINAGE. GENERALIZED WEAKNESS. AMB WITH ASSSIT. PT DENIES EXCESSIVE PAIN AT THIS TIME. IV PATENT AND ITNACT. BED IN LOW POSTIION. CALL LIGHTIN REACH., WILL CONTINEU TO MONITOR
--- NOTE | 2019-01-30 20:00 | NUR ---
PT A/A/O X4, FAMILY AT BEDSIDE. PT DENIES DIZZINESS AND HEADACHE. BREATH SOUNDS CLEAR. BREATHING EVEN AND UNLABORED ON ROOM AIR. DENIES CHEST PAIN AND PRESSURE. BOWEL SOUNDS ACTIVE. NO C/O N/V AND ABD PAIN THUS FAR. DRESSING NOTED ON MID ABDOMEN C/D/I. COLOSTOMY BAG INTACT AND IN PLACE ON THE RIGHT SIDE OF THE ABDOMEN DRAINING WITH DARK GREEN WATERY FLUID. IV INTACT ON THE RIGHT FOREARM INFUSING WITH NS WITH 40 KCL MEQ AT 50 ML/HR. MADE PT COMFORTABLE. PLACED CALL LIGHT WITH IN REACH. WILL CONTINUE TO MONITOR.
[2019-01-30 20:55] VITALS: BP 122/62
--- NOTE | 2019-01-30 22:34 | NUR ---
PATIENTS COLOSTOMY BAG STARTED LEAKING. ASSISTED KEN RN IN CHANGING COLOSTOMY BAG OF THE PT. PT TOLERATED IT WELL. WILL CONTINUE TO MONITOR.
[2019-01-31 06:07] VITALS: BP 117/56
--- NOTE | 2019-01-31 07:07 | NUR ---
PT QUIET AND RESTING. DENIES ABD PAIN THUS FAR. COLOSTOMY BAG AND DRESSING ON THE ABD C/D/I. MADE PT COMFORTABLE. WILL ENDORSE TO THE AM NURSE ACCORDINGLY.
--- NOTE | 2019-01-31 07:15 | NUR ---
RECEIVED PT FROM CALI ALTMAN. PT FOUND LAYING IN BED. AA/OX4. DENIES PAIN. NO S/S OF ACUTE DISTRESS. NO SOB ON ROOM AIR. DENIES ABD. PAIN. NO N/V. COLOSTOMY INTACT TO RUQ ABD. STOMA APPEARS BEEFY/RED. ABD. DRESSINGS CDI. IV WNL TO RFA, NO REDNESS, NO SWELLING, NO INFILTRATION. PATENT AND FLUSHES WELL. IV FLUIDS FLOWING. CALM/COOPERATIVE. MED-SURG. INSTRUCTED TO USE CALL LIGHT TO CALL FOR ASSISTANCE PRN. VERBALIZED UNDERSTANDING. BED IN LOW POSITION. CALL LIGHT WITHIN REACH. WILL CONT. TO MONITOR.
[2019-01-31 09:54] VITALS: BP 122/56
--- NOTE | 2019-01-31 12:36 | NUR ---
LATE ENTRY: PT LAYING IN BED WITH HOB ELEVATED EATING LUNCH. VISITOR AT BEDSIDE. NO S/S OF ACUTE DISTRESS. DENIES PAIN. NO N/V AT THIS TIME. NO COMPLAINT OF ABD. PAIN. COLOSTOMY LEAKING, COLOSTOMY CARE PROVIDED, BAG CHANGED. LINEN CHANGED. SKIN CLEAN/DRY. DRESSING TO ABD. CDI. IV WNL, IV FLUIDS FLOWING. FALL PREC IN PLACE. BED IN LOW POSITION. CALL LIGHT WITHIN REACH. INSTRUCTED TO USE CALL LIGHT TO CALL FOR ASSISTANCE PRN. VERBALIZED UNDERSTANDING. WILL CONT. TO MONITOR.
--- NOTE | 2019-01-31 13:21 | NUR ---
Continue CCHO, with Glucerna TID as ordered and as tolerated.
--- NOTE | 2019-01-31 13:21 | NUR ---
Follow-up Nutrition Assessment- 238/B PALMIRA BERNABE HR FU Dx: Vomiting, dehydration Labs: (01/30) BG 117H, CREAT 0.3L, BUN 3.0L Meds: D50, humulin 3ml, lactinex, Zofran, KCl 10% 20 MEQ Diet order: CCHO Weights: (01/26) 37 kg Skin: sutures with interrupted gilda abd area S/P colon resection GI: colostomy, cecostomy, j-tube Prateek: 19 Edema: none Last BM: 01/28/19, colostomy bag with dark green watery drainage RDN Visit (01/31): pt was eating her lunch during visit. She said that she ate about 75% of her breakfast and has been consuming Glucerna. She said that she is drinking only 1 carton of Glucerna out of the 3 that she receives per day. She has one episode of vomit this morning however she currently does not have any N/V. Pt was encouraged to drink Glucerna atleast BID if not TID. Per progress note (01/30): Patient reports she tolerates diet. Last night she reported an episode of vomiting when trying to get up. No other complaints. RDN Visit (01/29): Diet education along with NCM handouts on "type 2 DM Nutrition therapy' was provided. RDN visit (01/23): per pt's RN Paola, enteral nutrition Glucerna 1.2 (GJ tube) @ 20 ml/hr, goal 50ml/hr, FWF 50 ml q4hr was DC on 01/22 at 10 am. Pt is tolerating CCHO (mechanically soft-chopped) diet with no N/V. Pt has good appetite and has been eating about 60% of her meals. Estimated Nutritional Needs Based on actual body weight 37.3 kg Energy: 1681-3568 kcal/d (35-37 kcal/kg- wt gain, wound healing) Protein: 56-63 g/d (1.5-1.7 g/kg)-maintenance and preservation of lean body mass Fluid: 8741-2156 ml/d (1 ml/kcal-fluid balance) or per doctor Nutrition Diagnosis 1. Inadequate PO intake related to current diet order and reported poor appetite 2/2 medical condition as evidenced by PO intake meeting <75% estimated calorie and protein needs.(Improving) 2. Unintentional weight loss related to increased metabolic demands as evidenced by significant weight loss of 10# x 1 month (10.8%) (ongoing) Intervention 1. Continue CCHO, with Glucerna TID as ordered and as tolerated. Monitor/Evaluate Previous goal: progress to CCHO when appropriate (met) Goal: PO intake at least 75% of estimated needs Monitor: PO intake/tolerance, Labs, GI function F/U in 3-5 days as moderate risk: 02/03-
[2019-01-31 16:19] LABS: CALCIUM 8.8 mg/dL (8.5-10.1); CHLORIDE SERUM 100 mmol/L (98-107); CREATININE SERUM 0.4 mg/dL (0.6-1.0); GFR1 > 60 mL/min; GLUCOSE SERUM 146 mg/dL (74-106); POTASSIUM SERUM 3.5 mmol/L (3.5-5.1); SODIUM SERUM 136 mmol/L (136-145)
[2019-01-31 17:01] VITALS: BP 137/63
--- NOTE | 2019-01-31 18:41 | NUR ---
PT LAYING IN BED WITH HOB ELEVATED. NO S/S OF ACUTE DISTRESS. DENIES PAIN. NO N/V. NO CHILLS. NO FEVER. NO SOB ON ROOM AIR. COLOSTOMY TO RUQ, CDI. OUTPUT 250CC. GREEN DRAINAGE. NO ABD. PAIN. IV WNL TO RFA, NO REDNESS, NO SWELLING, NO INFILTRATION. IV FLUIDS FLOWING. AA/OX4. DRESSING TO ABD. CDI. BED IN LOW POSITION. CALL LIGHT WITHIN REACH. WILL ENDORSE TO ONCOMING SHIFT.
--- NOTE | 2019-01-31 19:41 | NUR ---
RECEIVED PT FROM PREVIOUS SHIFT. MEDSURG. AAO. DENIES HEADACHE/DIZZINESS. BREATHING E/U ON RA, NO SOB. DENIES PAIN. ABD DRESSING CDI, NO DRAINAGE NOTED ON ABD PAD. COLOSTOMY SITE NOTED TO RLQ, DRAINING DARK GREEN LIQUID, STOMA IS RED AND MOIST IN COLOR. NO EDEMA NOTED. IV SITE TO RFA CDI, NO ERYTHEMA OR SWELLING NOTED. CALL LIGHT WITHIN REACH. WILL CONTINUE TO MONITOR.
[2019-01-31 20:15] VITALS: BP 109/59
--- NOTE | 2019-02-01 01:05 | NUR ---
PT RESTING IN BED. BREATHING E/U. NO S/S ACUTE DISTRESS. NO SIGNS OF PAIN NOTED. WILL CONTINUE TO MONITOR.
[2019-02-01 05:12] VITALS: BP 102/65
--- NOTE | 2019-02-01 06:56 | NUR ---
PT HAD RESTFUL NIGHT. ABD DRESSING REINFORNCED, NO DRAINAGE NOTED. DENIES PAIN. NO S/S ACUTE DISTRESS. ALL NEEDS MET AND ATTENDED TO. NO CHANGES OVERNIGHT. CALL LIGHT WITHIN REACH. WILL CONTINUE TO MONITOR.
--- NOTE | 2019-02-01 07:10 | NUR ---
RECEIVED PT FROM CALI GRIMES. PT AA/OX4. LAYING IN BED. NO S/S OF ACUTE DISTRESS. NO COMPLAINT OF PAIN. NO N/V. NO SOB ON ROOM AIR. NO CHEST PAIN. COLOSTOMY IN TACT TO RUQ. CDI. STOMA BEEFY/RED. DRESSING TO ABD. CDI. IV WNL TO RFA, NO REDNESS, NO SWELLING, NO INFILTRATION. PATENT. IV SALINE LOCKED. NO TEE. NO DIZZINESS. FALL PREC IN PLACE. BED IN LOW POSITION. CALL LIGHT WITHIN REACH. INSTRUCTED TO USE CALL LIGHT TO CALL FOR ASSISTANCE PRN, VERBALIZED UNDERSTANDING. WILL CONT. TO MONITOR.
[2019-02-01 07:29] LABS: CARBON DIOXIDE 27.7 mmol/L (21-32); CHLORIDE SERUM 103 mmol/L (98-107); CREATININE SERUM 0.3 mg/dL (0.6-1.0); GFR1 > 60 mL/min; GLUCOSE SERUM 95 mg/dL (74-106); POTASSIUM SERUM 4.4 mmol/L (3.5-5.1); SODIUM SERUM 137 mmol/L (136-145)
[2019-02-01 08:44] LABS: PLATELET COUNT 533 x10^3mcL (130-400); RED CELL DISTRIBUTION WIDTH 25.3 % (11.5-14.5)
[2019-02-01 09:09] VITALS: BP 106/67
[2019-02-01 10:48] LABS: ovalocyte/elliptocyte 1+
[2019-02-01 10:49] LABS: acanthocyte (spur cell) 1+; rbc morphology (normal/abnorm) ABNORMAL (NORMAL); schistocyte (helmet cell) 1+; tear drop cell (dacryocyte) 1+
--- NOTE | 2019-02-01 12:07 | NUR ---
PT SITTING IN CHAIR AT SIDE OF BED. AA/OX4. DENIES PAIN. NO SOB ON ROOM AIR. NO CHEST PAIN. NO ABD. PAIN. COLOSTOMY IN TACT TO RUQ. IV WNL TO RFA, NO REDNESS, NO SWELLING, NO COMPLAINT OF PAIN AT SITE. PT CALM/COOPERATIVE. DENIES N/V AT THIS TIME. INSTRUCTED TO USE CALL LIGHT TO CALL FOR ASSISTANCE BEFORE AMBULATING. VERBALIZED UNDERSTANDING. WILL CONT. TO MONITOR.
--- NOTE | 2019-02-01 12:35 | NUR ---
PER TOOTH POLISHER REQUEST TO RE-CHECK COLOSTOMY DUE TO LEAKAGE, WHILE ASSESSING THE SITE, NOTICE/OBSERVE THE POUCH ENDING PORTION WAS NOT CLOSED/SEALED AT ALL. CNC MILL OPERATOR AND PRIMARY RN NOTIFIED.COLOSTOMY SITE IS FUNCTIONING AND CHRISSY-OSTOMY SKIN INTACT. OSTOMY CARE PLEASE FOLLOW MANUFACTURE GUIDELINES FOR APPLICATION/CARE OF OSTOMY. -PLEASE CUT ONE PIECE STOMA OPENING IN ROUND SHAPE WITH 45 MM (2 INCHES) -WASH THE STOMA AND SURROUNDING SKIN THOROUGHLY WITH WET PAPER TOWER AND DRY SKIN COMPLETELY -APPLY STOMA ADHESIVE PASTE TO THE WAFER, NEAR THE EDGE OF STOMA OPENING, PAT FLAT WITH DAMP FINGER. -APPLY THE SEALED BUTTOM POUCH AT THE DIAGONAL, IN THE DIRECTION OF LEG, ON THE SAME SIDE OF BODY, THAT STOMA WAS CREATED. -FOR ONE PIECE SYSTEM CHANGE THE POUCH Q5-7 DAYS PRN LEAK. -EMPTY THE POUCH WHEN 1/3 FULL. DO NOT WASH OR RINSE WHILE APPLIANCE IS ATTACHED. -IF THE SKIN IRRITATION PRESENTS, APPLY STOMA ADHESIVE POWDER TO THE IRRITATED SKIN BY BA. -MAY DISCHARGE HOME WITH SULLPIES FOLLOWIN COMPLETE POUCH CHANGES 1 TUBE OF STOMA ADHESIVE PASTE 1 BOTTLE OF STOMA ADHESIVE POWDER 4 SKIN PREP
--- NOTE | 2019-02-01 14:12 | NUR ---
PT RESTING IN BED WITH BOTH EYES CLOSED. NO S/S OF ACUTE DISTRESS. NO SOB ON ROOM AIR. NO N/V. NO CHEST PAIN. CALM/COOPERATIVE. BED IN LOW POSITION. CALL LIGHT WITHIN REACH. WILL CONT. TO MONITOR.
--- NOTE | 2019-02-01 15:55 | NUR ---
DRESSING REMOVED FROM ABDOMEN, SCANT SEROSANGUINOUS DRAINAGE NO FOUL ODOR. LLQ ABD, MID ABD, RLQ ABD CLEANSED WITH NS, PATTED RY, PACKED WITH 1/4" IODOFORM, ADAPTIC APPLIED, WITH DRY DRESSING AND ABD, SECURED WITH PAPER TAPE. PT TOLERATED PROCEDURE WELL. NO S/S OF ACUTE DISTRESS. NO N/V. NO COMPLAINT OF PAIN. NO CHEST PAIN. BED IN LOW POSITION. CALL LIGHT WITHIN REACH. WILL CONT. TO MONITOR.
[2019-02-01 16:59] VITALS: BP 108/63
--- NOTE | 2019-02-01 17:23 | NUR ---
LATE ENTRY: BLOOD SUGAR 67 LEFT HAND, GIVEN ORANGE JUICE WITH SUGAR, RECHECKED IN RIGHT HAND 80. PT DENIES TEE, NO DIZZINESS, NO FATIGUE, NO N/V. AA/OX4. ASYMPTOMATIC. ASSISTED PT TO SIT IN CHAIR AT SIDE OF BED. GAIT SLOW/STEADY. MINIMAL ASSIST. WILL CONT. TO MONITOR CLOSELY.
--- NOTE | 2019-02-01 18:10 | NUR ---
PT SITTING IN CHAIR AT SIDE OF BED. AA/OX4. NO S/S OF ACUTE DISTRESS. NO SOB ON ROOM AIR. NO ABD. PAIN. NO N/V. BLOOD SUGAR RECHECKED AFTER DINNER, 175. DENIES TEE. NO DIZZINESS. CALM/COOPERATIVE. BED IN LOW POSITION. CALL LIGHT WITHIN REACH. FAMILY AT BEDSIDE. DRESSING TO ABDOMEN CDI. COLOSTOMY IN TACT TO RUQ ABD. STOOL APPEARS GREEN, SOFT/WATERY. WILL ENDORSE TO ONCOMING SHIFT.
--- NOTE | 2019-02-01 19:36 | NUR ---
RECEIVED PT FROM PREVIOUS SHIFT. MEDSURG. AAO. DENIES PAIN. BREATHING E/U ON RA, DENIES SOB. ABD DRESSING CDI, NO DRAINAGE NOTED ON ABD PAD, SECURED WITH PAPER TAPE. COLOSTOMY SITE NOTED TO RLQ, DRAINING DARK GREEN LIQUID, STOMA IS INTACT AND BEEFY RED IN COLOR. NO EDEMA NOTED. IV SITE TO RFA CDI, NO ERYTHEMA OR SWELLING NOTED. CALL LIGHT WITHIN REACH. WILL CONTINUE TO MONITOR.
[2019-02-01 19:44] VITALS: BP 95/61
--- NOTE | 2019-02-02 00:01 | NUR ---
PT RESTING IN BED WITH EYES CLOSED. NO S/S ACUTE DISTRESS. CHEST RISE/FALL EQUAL. SAFETY MEASURES IN PLACE. CALL LIGHT WITHIN REACH. WILL CONTINUE TO MONITOR.
[2019-02-02 05:06] VITALS: BP 111/66
--- NOTE | 2019-02-02 06:07 | NUR ---
PT HAD RESTFUL NIGHT. ABD DRESSING CDI, REINFORCED NEEDED. NO DRAINAGE NOTED ON DRESSING. DENIES PAIN. NO S/S ACUTE DISTRESS. ALL NEEDS MET AND ATTENDED TO. NO CHANGES OVERNIGHT. CALL LIGHT WITHIN REACH. WILL ENDORSE CARE TO ONCOMING SHIFT.
[2019-02-02 07:03] LABS: RED CELL DISTRIBUTION WIDTH 24.5 % (11.5-14.5)
--- NOTE | 2019-02-02 07:18 | NUR ---
REPORT GIVEN TO RADHA MICHAELS. ALL QUESTIONS AND CONCERNS ADDRESSED.
[2019-02-02 07:21] LABS: CALCIUM 9.7 mg/dL (8.5-10.1); CHLORIDE SERUM 101 mmol/L (98-107); CREATININE SERUM 0.5 mg/dL (0.6-1.0); GFR1 > 60 mL/min; GLUCOSE SERUM 166 mg/dL (74-106); SODIUM SERUM 135 mmol/L (136-145)
[2019-02-02 07:23] LABS: POTASSIUM SERUM 5.8 mmol/L (3.5-5.1)
[2019-02-02 10:19] VITALS: BP 105/63
--- NOTE | 2019-02-02 10:52 | NUR ---
AT 0710 - RECEIVED PATIENT FROM NIGHT NURSE. SLEEPING. RESPIRATIONS REGULAR. AT 0725 - RECEIVED CALL FROM LAB WITH ELEVATED K+ OF 5.8 AT 0740 - PRINTED REPORT OF LAB RESULTS WITH HIGHLIGHTED K+ LEVEL GIVEN TO DR MARSHALL IN CONFERENCE. AT 0850 - PATIENT IS NPO FOR EGD. RECEIVED ORDER FOR DISCONTINUATION OF PO KCL. COLOSTOMY CARE DONE. COLOSTOMY EMPTIED OF SOFT STOOL - SEMI-FORMED. AT 0955 - TODAY'S DOSE OF FERRLICIT NOW IN PROGRESS. AT 1010 - RECEIVED CALL FROM GI LAB. REPORT GIVEN TO RN. PATIENT SEEN BY DR VORA. AT 1025 - PATIENT TAKEN TO GI LAB.
[2019-02-02 13:06] LABS: CALCIUM 8.8 mg/dL (8.5-10.1); CHLORIDE SERUM 102 mmol/L (98-107); CREATININE SERUM 0.4 mg/dL (0.6-1.0); GFR1 > 60 mL/min; GLUCOSE SERUM 164 mg/dL (74-106); POTASSIUM SERUM 4.7 mmol/L (3.5-5.1); SODIUM SERUM 135 mmol/L (136-145)
[2019-02-02 13:47] LABS: ATYPICAL LYMPH 1 %; BAND NEUTROPHIL 0 % (0-10); BASOPHIL 0 % (0-2); MONOCYTE 6 % (0-7); PLATELET MORPHOLOGY PLATELETS INCREASED; SEGMENTED NEUTROPHILS 82 % (37-75)
[2019-02-02 13:48] LABS: rbc morphology (normal/abnorm) ABNORMAL (NORMAL)
--- NOTE | 2019-02-02 14:17 | NUR ---
AT 1218 - PATIENT BACK IN ROOM FOLLOWING EGD UNDER MODERATE SEDATION. PATIENT IS AWAKE, ALERT AND ORIENTED. BP 111/66. HR 100. O2 SAT 98% ON ROOM AIR. PATIENT HAS BEEN ORDERED LUNCH. AT 1400 - HAS EATEN [employer] DIET LUNCH. TOLERATED WELL. NOW RESTING QUIETLY. LAST K+ LEVEL 4.8
[2019-02-02] MEDS ORDERED: FER300 PO (14:31)
[2019-02-02] MEDS ORDERED: ELA10 PO (14:32)
[2019-02-02] MEDS ORDERED: PROTONIX40 MG/Pac1 PO (14:33)
[2019-02-02] MEDS ORDERED: REG5 PO (14:34)
[2019-02-02 15:02] LABS: PLATELET COUNT 544 x10^3mcL (130-400)
[2019-02-02 16:24] VITALS: BP 92/64
--- NOTE | 2019-02-02 17:40 | NUR ---
AT 1545 - ABDOMINAL DRESSING CHANGE PERFORMED. PHOT DOCUMENTED. WOUND CLEANSED WITH N/SALINE. MAIN SURGICAL INCISION WELL 2 SMALL OPENINGS ON EATHER SIDE OF MAIN INCISION, PACKED WITH IODOFORM PACKING GAUZE. COVERED WITH ADAPTIC AND DRY DRESSING. PATIENT HAS HAD ANOTHER SOFT, SEMIFORMED BOWEL MOVEMENT VIA COLOSTOMY. AT 1610 - HAS BEEN SEEN BY DR BOX AND PATIENT WAS INFORMED OF DUODENAL BULB ULCER AND PLANNED TREATMENT. DISCHARGE FOR TODAY HAS BEEN PLACED ON HOLD UNTIL TOMORROW.
[2019-02-02 18:09] VITALS: BP 111/64
--- NOTE | 2019-02-02 18:45 | NUR ---
AWAKE, ALERT AND ORIENTED. NO C/O PAIN. VSS. AFEBRILE. IV SALINE LOCKED. T[facility]ER[facility]. AMBULATES TO BATHROOM. WILL ENDORSE CARE TO NIGHT NURSE.
--- NOTE | 2019-02-02 19:30 | NUR ---
RECIEVED PATIENT AT START OF SHIFT A/O X4. MED-SURG. LUNGS CTAB. COLOSTOMY TO RIGHT LOWER QUADRANT, DRAINING GREEN LIQUID STOOL. 250 MLS EMPTIED. STOMA PINK. ABDOMINAL DRESSINGS IN PLACE, CDI. BOWEL SOUNDS ACTIVE. PATIENT DENIES PAIN. IV TO RAC SALINE LOCKED AND PATENT. BED LOCKED AND IN LOWEST POSITION. CALL LIGHT AND BEDSIDE TABLE WITHIN REACH. WILL CONTINUE TO MONITOR.
[2019-02-02 20:15] VITALS: BP 95/63
--- NOTE | 2019-02-03 00:15 | NUR ---
PATIENT'S COLOSTOMY BAG IS LEAKING AT THE TOP DUE TO POOR ADHESION A RESULT OF THE ABDOMINAL WOUND GETTING IN THE WAY. GREEN STOOL LEAKING INTO ABDOMINAL WOUND. DRESSINGS, PACKING, AND COLOSTOMY BAG WAS REMOVED. ENTIRE ABDOMEN WAS CLEANSED WITH NORMAL SALINE AND ZAY DRY. ALL THREE ABDOMINAL WOUNDS WERE PACKED WITH 1/4 INCH IODOFORM. MEDIAL LARGE WOUND WAS THEN COVERED WITH ADAPTIX, AND A FULL ROLL OF KERLEX FAN FOLDED. ENTIRE ABDOMEN THEN COVERED WITH ABDOMINAL BINDER AND SECURED WITH SURSITE. NEW COLOSTOMY BAG APPLIED. LINENS CHANGED. CALL LIGHT WITHIN REACH.
[2019-02-03 05:30] VITALS: BP 120/62
--- NOTE | 2019-02-03 06:47 | NUR ---
NO FURTHER SIGNIFICANT EVENTS THIS SHIFT. ABDOMINAL DRESSING REMAINS CDI. STOOL IN COLOSTOMY IS SEMIFORMED AND WATERY. IV IS PATENT AND SALINE LOCKED. WILL ENDORSE CARE TO MORNING NURSE.
--- NOTE | 2019-02-03 07:50 | NUR ---
AT 0720 - RECEIVED PATIENT FROM NIGHT NURSE. AWAKE, ALERT AND ORIENTED. NO C/O PAIN. ABDOMINAL DRESSING DRY AND INTACT. COLOSTOMY HAS SMALL AMOUNT OF FECAL MATTER. AWAITING BREAKFAST.
[2019-02-03 07:55] LABS: CALCIUM 9.8 mg/dL (8.5-10.1); CARBON DIOXIDE 24.6 mmol/L (21-32); CHLORIDE SERUM 103 mmol/L (98-107); CREATININE SERUM 0.6 mg/dL (0.6-1.0); GFR1 > 60 mL/min; GLUCOSE SERUM 119 mg/dL (74-106); SODIUM SERUM 137 mmol/L (136-145)
[2019-02-03 08:17] LABS: POTASSIUM SERUM 5.6 mmol/L (3.5-5.1)
--- NOTE | 2019-02-03 08:32 | NUR ---
AT 0815 - RECEIVED CALL FROM LAB WITH ELEVATED K+ LEVEL OF 5.6. PRINTED LAB REPORT WITH HIGHLIGHTED VALUE GIVEN TO DR BLACKWELL IN CONFERENCE.
[2019-02-03 08:55] LABS: BASOPHIL % 0.5 % (0-2)
[2019-02-03 09:02] LABS: PLATELET COUNT 521 x10^3mcL (130-400); RED CELL DISTRIBUTION WIDTH 25.1 % (11.5-14.5)
[2019-02-03 09:29] VITALS: BP 94/68
[2019-02-03 12:15] LABS: CALCIUM 8.9 mg/dL (8.5-10.1); CARBON DIOXIDE 25.8 mmol/L (21-32); CHLORIDE SERUM 98 mmol/L (98-107); CREATININE SERUM 0.5 mg/dL (0.6-1.0); GFR1 > 60 mL/min; GLUCOSE SERUM 216 mg/dL (74-106); POTASSIUM SERUM 4.8 mmol/L (3.5-5.1); SODIUM SERUM 130 mmol/L (136-145)
--- NOTE | 2019-02-03 13:07 | NUR ---
AT 1120 - SEEN BY DR VORA. HE WILL TAKE PATIENT TO OR AT 1500 HR TODAY FOR CLOSURE OF WOUND. PATIENT MADE AWARE OF NEED TO BE NPO AT THIS TIME. AT 1210 - BLOOD GLUCOSE LEVEL 213. NOT GIVEN INSULIN PATIENT IS NPO AT THIS TIME. FAMILY AT BEDSIDE.
--- NOTE | 2019-02-03 13:23 | NUR ---
PATIENT'S SKIN TREATED WITH CHLORHEXEDINE PRE-OP BODY WIPES. WRITTEN CONSENT FOR CLOSURE OF ABDOMINAL WOUND DEHISCENCE.
[2019-02-03 14:13] VITALS: BP 108/68
--- NOTE | 2019-02-03 14:57 | NUR ---
PATIENT HAS BEEN TAKEN TO OR.
[2019-02-03 16:52] VITALS: BP 123/70
--- NOTE | 2019-02-03 16:53 | NUR ---
PATIENT BACK IN ROOM FOLLOWING REINFORCEMENT OF ABDOMINAL INCISION. PATIENT IS AWAKE, ALERT AND ORIENTED. VS WNL. O2 SAT 100% ON ROOM AIR. ABDOMINAL DRESSING DRY AND INTACT.CALL LIGHT WITHIN REACH.
[2019-02-03 17:53] VITALS: BP 133/71
--- NOTE | 2019-02-03 19:04 | NUR ---
PATIENT HAS EATEN DINNER. NO C/O PAIN. DRESSING TO ABDOMEN REMAINS DRY AND INTACT. HAS BEEN COMMENCED ON PO FLAGYL AND MULTIVITAMIN. WILL ENDORSE CARE TO NIGHT NURSE.
--- NOTE | 2019-02-03 19:30 | NUR ---
PT IS A/O X4. ON MED SURG. DENIES ANY CHEST PAIN OR PRESSURE. PULSES ARE PRESENT. NO EDEMA NOTED. LUNGS CLEAR IN ALL FEILDS. ON RA, DENIES ANY SOB. EQUAL CHEST RISE AND FALL. NO SIGN OF RESP DISTRESS. BOWEL SOUNDS PRESENT x4. DENIES ANY ABD PAIN. COLOSTOMY BAG ON R MID QUAD. STOMA VISIBLE AND PINK. STOOL IS DARK GREEN AND SEMI LIQUID. ABD DRESSING FROM EARLIER SURGERY IS CLEAN AND INTACT. NO SIGN OF DRAINAGE NOTED. DENIES ANY PAIN AT THIS TIME. SALINE LOCKED ON RAC. SITE CLEAN AND PATENT. BED IS AT LOWEST SETTING. CALL LIGHT WITHIN REACH. SIDE RAILS UP x2 FOR PT SAFETY. WILL CONTINUE TO MONITOR.
[2019-02-03 20:00] VITALS: BP 116/61
--- NOTE | 2019-02-04 01:33 | NUR ---
PT IS RESTING IN BED. BREATHING EVEN AND UNALBORED. DENIES PAIN. STATES PAIN MEDICATION HELPED. SEE EMAR. COLOSTOMY BAG INTACT. ABD DRESSING INTACT AND CLEAN. BED IS AT LOWEST SETTING. CALL LIGHT WITHIN REACH. WILL CONTINUE TO MONTIOR.
[2019-02-04 05:24] VITALS: BP 100/60
--- NOTE | 2019-02-04 07:01 | NUR ---
PT IS RESTING IN BED. NO ACUTE EVENT OCCURED AT NIGHT. DENIES ANY PAIN. DRESSING INTACT. BED IS AT LOWEST SETTING. CALL LIGHT WITHIN REACH. WILL ENDORSE TO AM NURSE.
--- NOTE | 2019-02-04 07:39 | NUR ---
AT 0710 - RECEIVED PATIENT FROM NIGHT NURSE. AWAKE, ALERT AND ORIENTED. DENIES ANY PAIN. ABDOMINAL DRESSING DRY. SEMI-FORMED STOOL IN COLOSTOMY BAG.
[2019-02-04 09:38] VITALS: BP 105/57
[2019-02-04 09:46] LABS: CALCIUM 8.6 mg/dL (8.5-10.1); CARBON DIOXIDE 24.4 mmol/L (21-32); CHLORIDE SERUM 97 mmol/L (98-107); CREATININE SERUM 0.4 mg/dL (0.6-1.0); GFR1 > 60 mL/min; GLUCOSE SERUM 236 mg/dL (74-106); POTASSIUM SERUM 4.2 mmol/L (3.5-5.1); SODIUM SERUM 130 mmol/L (136-145)
[2019-02-04 11:50] LABS: BASOPHIL % 0.6 % (0-2)
[2019-02-04 11:53] LABS: PLATELET COUNT 498 x10^3mcL (130-400); RED CELL DISTRIBUTION WIDTH 24.9 % (11.5-14.5)
[2019-02-04 12:36] LABS: rbc morphology (normal/abnorm) ABNORMAL (NORMAL)
[2019-02-04 12:39] LABS: ovalocyte/elliptocyte 2+
--- NOTE | 2019-02-04 15:54 | NUR ---
AT 0915 - IV IN RAC LEAKING. CATHETER REMOVED INTACT. WILL RESITE. PATIENT HAS BEEN ABLE TO TOLERATE BREAKFAST. AT 1000 - NEW IV INITIATED IN R WRIST AND IV ANCEF ADMINISTERED PER EMAR. AT 1215 - PATIENT SLEPT MOST OF THE MORNING. AMBULATES TO BATHROOM FOR TOILET NEEDS. AT 1315 - HAS EATEN LUNCH. AT 1440 - COLOSTOMY CARE DONE. LARGE SEMI-FORMED STOOL EMPTIED FROM BAG.
[2019-02-04 17:22] VITALS: BP 98/56
--- NOTE | 2019-02-04 18:29 | NUR ---
AT 1700 - OUTER ABDOMINAL DRESSING CHANGED PER ORDERS. PACKING OF WOUND LEFT IN PLACE. SMALL AMOUNT OF DRIED SEROSANGUINOUS DISCHARGE FOUND ON GAUZE DRESSING. AT 1815 - PATIENT HAS EATEN DINNER. VSS. NO C/O PAIN. AMBULATES IN ROOM. WILL ENDORSE CARE TO NIGHT NURSE.
--- NOTE | 2019-02-04 19:35 | NUR ---
PT. AWAKE, ALERT, ORIENTED X4. DENIES HEADACHE OR DIZZINESS. BREATH SOUNDS CLEAR THROUGOUT LUNG [place], RESP. EVEN, UNLABORED. NO SOB. PT. ON RA. NO EDEMA TO EXTREMITIES. COLOSTOMY W/ DRAINAGE BAG, INSITU. ABD. SOFT AND FLAT, BOWEL SOUNDS ACTIVE. DENIES ABD. PAIN, DENIES NAUSEA. DSRG TO ABD. CDI. NO DRAINAGE NOTED. IV SITE INTACT. CALL LIGHT WITHIN REACH.
[2019-02-04 19:48] VITALS: BP 102/59
--- NOTE | 2019-02-04 22:04 | NUR ---
PT.'S NIGHT MEDICATION GIVEN ORDERED. MEDICATION USE AND DOSE EXPLAINED FOR HER ELAVIL. PT. STATED THAT SHE WAS UNAWARE THAT SHE WAS TAKING MEDICATION FOR HER MOOD OR DEPRESSION. PT. ALSO STATED THAT THERE IS NO WAY THAT SHE IS TAKING ELAVIL AT HOME. MED REC CHECKED, MEDICATION IS LISTED. ALSO, THIS IS THE FOURTH DOSE SINCE PT.'S ADMISSION HERE. DRUG USE AND HX LOOKED UP AND EXPLAINED THAT THERE IS POTENTIALLY TWO DIFFERENT USES FOR ELAVIL. I ASKED PT. IF SHE WAS SATISFIED WITH THE EXPLAINATION FOR HER MEDICATION, SHE STATED YES, BUT STILL REQUESTED THE CHARGE NURSE. CHARGE NURSE MADE AWARE AND SPEAKING WITH HER.
--- NOTE | 2019-02-05 00:13 | NUR ---
PT. RESTING QUIETLY. EYES CLOSED. APPEARS TO BE SLEEPING. NO C/O PAIN THUS FAR. CALL LIGHT WITHIN REACH.
[2019-02-05 04:51] VITALS: BP 122/66
[2019-02-05 06:14] LABS: BASOPHIL % 0.6 % (0-2)
[2019-02-05 06:19] LABS: CALCIUM 9.1 mg/dL (8.5-10.1); CARBON DIOXIDE 23.3 mmol/L (21-32); CHLORIDE SERUM 99 mmol/L (98-107); CREATININE SERUM 0.4 mg/dL (0.6-1.0); GFR1 > 60 mL/min; GLUCOSE SERUM 170 mg/dL (74-106); POTASSIUM SERUM 4.2 mmol/L (3.5-5.1); SODIUM SERUM 133 mmol/L (136-145)
[2019-02-05 06:33] LABS: PLATELET COUNT 474 x10^3mcL (130-400); RED CELL DISTRIBUTION WIDTH 25.4 % (11.5-14.5)
--- NOTE | 2019-02-05 06:48 | NUR ---
DR. MCLEOD CALLED FOR UPDATE ON PT. NO NEW ORDERS RECEIVED. ABD. MANDY. REMAINS CDI. NO C/O PAIN OR NAUSEA THROUGHOUT THE NIGHT. IV SITE INTACT. CALL LIGHT WITHIN REACH. WILL ENDORSE PT. CARE TO INCOMING NURSE.
--- NOTE | 2019-02-05 08:11 | NUR ---
AT 0715 - RECEIVED PATIENT FROM NIGHT NURSE. AWAKE, ALERT AND ORIENTED. NO C/O PAIN. DRESSING TO ABDOMEN IS DRY AND INTACT. SEMI-FORMED STOOL IN COLOSTOMY BAG. AT 0730 - COLOSTOMY BAG EMPTIED. PATIENT SAT ON SIDE OF BED FOR BREAKFAST.
[2019-02-05 09:27] VITALS: BP 98/61
[2019-02-05 09:50] LABS: rbc morphology (normal/abnorm) ABNORMAL (NORMAL)
[2019-02-05 09:51] LABS: acanthocyte (spur cell) 1+; ovalocyte/elliptocyte 2+
--- NOTE | 2019-02-05 10:04 | NUR ---
AT 0900 - SEEN BY DR VORA. DRESSING CHANGED BY . WOUND PACKED WITH IODOFORM, COVEED WITH DRY GAUZE AND ISLAND DRESSINGS. PHOTO DOCUMENTED.
[2019-02-05] MEDS ORDERED: DOXYCYCLINE HY100 MG PO (12:44)
[2019-02-05] MEDS ORDERED: FLA250 PO (12:44)
--- NOTE | 2019-02-05 13:08 | NUR ---
RECEIVED DISCHARGE ORDERS. PATIENT'S FAMILY WILL PICK HER UP THIS AFTERNOON.
--- NOTE | 2019-02-05 13:38 | NUR ---
Follow-up Nutrition Assessment- 238/B PALM[place]A BERNABE HR FU Dx: Vomiting, dehydration Labs: (02/05) BG 170H, CREAT 0.4L, BUN 6.0L, NA 133L Meds: D50, humulin 3ml, ferrous sulfate, flagyl, Metamucil, Zofran, reglan, theragran Diet order: cardiac, (01/27-) CCHO Weights: (02/04) 44 kg; (01/26) 37 kg Skin: surgical incision to mid-abdomen GI: colostomy, cecostomy, j-tube Prateek: 19 Edema: none Last BM: 02/04/19, colostomy site intact, draining soft formed stool RDN Visit (02/05): Pt said that she is getting D/C today. Pt said that she has been drinking Glucerna but complains of very watery discharge from her colostomy after drinking it. She has questions regarding diet for peptic ulcer. All questions were answered and pt verbalized understanding. Discussed recommendations with Dr. Lam. RDN Visit (01/31): pt was eating her lunch during visit. She said that she ate about 75% of her breakfast and has been consuming Glucerna. She said that she is drinking only 1 carton of Glucerna out of the 3 that she receives per day. She has one episode of vomit this morning however she currently does not have any N/V. Pt was encouraged to drink Glucerna atleast BID if not TID. Per progress note (01/30): Patient reports she tolerates diet. Last night she reported an episode of vomiting when trying to get up. No other complaints. RDN Visit (01/29): Diet education along with NCM handouts on "type 2 DM Nutrition Therapy' was provided. RDN visit (01/23): per pt's RN Paola, enteral nutrition Glucerna 1.2 (GJ tube) @ 20 ml/hr, goal 50ml/hr, FWF 50 ml q4hr was DC on 01/22 at 10 am. Pt is tolerating CCHO (mechanically soft-chopped) diet with no N/V. Pt has good appetite and has been eating about 60% of her meals. Estimated Nutritional Needs Based on actual body weight 37.3 kg Energy: 2165-7836 kcal/d (35-37 kcal/kg- wt gain, wound healing) Protein: 56-63 g/d (1.5-1.7 g/kg)-maintenance and preservation of lean body mass Fluid: 2489-2997 ml/d (1 ml/kcal-fluid balance) or per doctor Nutrition Diagnosis 1. Inadequate PO intake related to current diet order and reported poor appetite 2/2 medical condition as evidenced by PO intake meeting <75% estimated calorie and protein needs.(Improving) 2. Unintentional weight loss related to increased metabolic demands as evidenced by significant weight loss of 10# x 1 month (10.8%) (ongoing) Intervention 1. Change current diet order to CCHO, with Glucerna TID as ordered and as tolerated. Monitor/Evaluate Previous goal: progress to CCHO when appropriate (met) Goal: PO intake at least 75% of estimated needs Monitor: PO intake/tolerance, Labs, GI function F/U in 3-5 days as moderate risk: 5/2-5/4
--- NOTE | 2019-02-05 13:39 | NUR ---
Change current diet order to CCHO, with Glucerna TID as ordered and as tolerated.
--- NOTE | 2019-02-05 15:06 | NUR ---
PATIENT WAITING FOR FAMILY TO TAKE HER HOME.
--- NOTE | 2019-02-05 17:09 | NUR ---
AT 1550 - FAMILY MEMBER AT BEDSIDE. PREPARING PATIENT FOR DISCHARGE. IV CATHETER REMOVED INTACT. WHILE EXPLAINING DISCHARGE INSTRUCTIONS TO PATIENT AND FAMILY, PATIENT VOMITED 300 ML YELLOW LIQUID. FAMILY WANTED THE DOCTOR CALLED AND HOLD PLACED ON DISCHARGE. AT 1600 - CHARGE NURSE EUGENE CALLED AND SPOKE WITH DR SHI. INFORMED HIM OF PATIENT NOT WANTING TO BE DISCHARGED HOME TODAY. AT 1625 - NEW IV INTITATED IN LFA. SALINE LOCKED. OFFERED ANTIEMETIC TO PATIENT, BUT PATIENT SAID THAT SHE DID NOT HAVE NAUSEA AT THIS TIME. AT 1700 - BLOOD GLUCOSE 158. GIVEN 3 UNITS REGULAR INSULIN PER SLIDING SCALE.
[2019-02-05 17:45] VITALS: BP 98/68
--- NOTE | 2019-02-05 18:41 | NUR ---
PATIENT WAS ABLE TO EAT DINNER. NO FURTHER VOMITING. VSS. AFEBRILE. DRESSING TO ABDOMEN IS DRY AND INTACT. AMBULATES TO BATHROOM FOR TOILET NEEDS. FAMILY WITH PATIENT. WILL ENDORSE CARE TO NIGHT NURSE.
[2019-02-05 21:02] VITALS: BP 103/69
--- NOTE | 2019-02-05 22:43 | NUR ---
AT 1930 I RECEIVED PT IN BED AAOX4 PT DENY PAIN N/V AT THE MOMENT , MID ABD DRESSINGS C/D/I COLOSTOMY BAG INPLACE WITH SOFT GREENISH STOOL 300ML DRAINED FROM COLOSTOMY , BS ACTIVE X4, LUNG SOUNDS CTA , CALL LIGHT WITHIN PTS REACH , WILL CON;T TO MONITOR PT CLOSELY , HL INTACT FLUSHING WELL.
--- NOTE | 2019-02-05 22:45 | NUR ---
PT VOMITED 350ML ZOFRAN GIVEN ORDERED .
--- NOTE | 2019-02-06 | NUR ---
PT RESTING IN NO ACUTE DISTRESS. RR EVEN AND UNLABORED. IV PATENT. CALL LIGHT WITHIN REACH, BED IN LOW POSITION. WILL CONTINUE TO MONITOR.
--- NOTE | 2019-02-06 01:21 | NUR ---
PT'S IN BED WITH EYES CLOSED , PIV INTACT INFUSING WELL AT 10ML/HR
--- NOTE | 2019-02-06 05:02 | NUR ---
I HAVE REVIEWED THE DATA COLLECTION BY MATERIAL SCHEDULER (NAME):LOVE NOLASCO ENTERED ON (DATE/TIME): I CONCUR WITH THE DATA AND ANY EXCEPTIONS OR COMMENTS ARE LISTED BELOW:
[2019-02-06 05:59] VITALS: BP 143/99
--- NOTE | 2019-02-06 06:21 | NUR ---
PT VOMITED SEVERAL TIMES DURING THE SHIFT ,HL INTACT FLUSHING WELL . COLOSTOMY INTACT DRAINING WELL. WILL CON'T TO ASSIST PT WITH CARE .
[2019-02-06 10:44] VITALS: BP 100/67
--- NOTE | 2019-02-06 13:00 | NUR ---
COLOSTOMY BAG CHANGED AT THIS TIME. EMPTIED HALF BAG OF DARK GREENISH BROWN SEMI FORMED STOOL. STOMA DRY AND CLEAN. WOUND CARE DONE. ISLAND DRESSING AND GAUZE APPLIED OVER INCISIONAL PACKING. SURGICAL INCISION PINK W/ NO DISCHARGE, PT DENIES PAIN AT SITE. WILL CONTINUE TO MONITOR.
--- NOTE | 2019-02-06 13:21 | NUR ---
PT RESTING IN BED. AAOX4. NO ACUTE DISTRESS NOTED. DENIES N/V. BED IN LOWEST POSITION AND CALL LIGHT WITHIN REACH. WILL CONTINUE TO MONITOR.
[2019-02-06 16:00] VITALS: BP 102/65
--- NOTE | 2019-02-06 18:33 | NUR ---
PT RESTING IN BED. AAOX4. REPORTED MILD HEADACHE BUT TOLERABLE, OTHERWISE NO ACUTE DISTRESS NOTED. COLOSTOMY BAG W/ SMALL AMOUNT OF DARK GREENISH/BROWN SEMI FORMED STOOL. ABD DRESSING CDI. BED IN LOWEST POSITION AND CALL LIGHT WITHIN REACH. WILL ENDORSE TO ONCOMING NURSE.
--- NOTE | 2019-02-06 19:48 | NUR ---
RECEIVED PT FROM PREVIOUS SHIFT. PT A/OX4. DENIES PAIN. DENIES SOB ON RA. IV PATENT, SALINE LOCKED TO LFA. DRESSING TO ABD CDI. COLOSTOMY BAD DRAINING WITH NO COMPLICATIONS. SURROUNDING SKIN INTACT. CALL LIGHT WITHIN REACH, BED IN LOW POSITION. WILL CONTINUE TO MONITOR.
[2019-02-06 20:36] VITALS: BP 102/75
--- NOTE | 2019-02-06 21:31 | NUR ---
PT ENCOURAGED TO EMPTY COLOSTOMY BAG INDEPENDENTLY. PT RESISTIVE, STATING SHE WILL SPILL IT AND SHE DOESN'T WANT TO. AFTER FURTHER ENCOURAGEMENT, PT SUCCESSFULLY EMPTIED COLOSTOMY INDEPENDENTLY.
--- NOTE | 2019-02-07 00:25 | NUR ---
PT RESTING IN NO ACUTE DISTRESS. RR EVEN AND UNLABORED. WILL CONTINUE TO MONITOR.
[2019-02-07 05:21] VITALS: BP 115/76
[2019-02-07 06:49] LABS: CALCIUM 9.6 mg/dL (8.5-10.1); CARBON DIOXIDE 24.8 mmol/L (21-32); CHLORIDE SERUM 97 mmol/L (98-107); CREATININE SERUM 0.5 mg/dL (0.6-1.0); GFR1 > 60 mL/min; GLUCOSE SERUM 144 mg/dL (74-106); POTASSIUM SERUM 5.3 mmol/L (3.5-5.1); SODIUM SERUM 132 mmol/L (136-145)
--- NOTE | 2019-02-07 06:53 | NUR ---
PT UP TO RESTROOM WITH ASSISTANCE. INDEPENDENTLY EMPTIED COLOSTOMY BAG IN BATHROOM. AT THIS TIME, PT STATED SHE FELT "DIZZY" AND WITH THE ASSISTANCE OF CAREY GALE, PT SAT ON FLOOR. ONCE STABLE, PT ASSISTED BACK TO BED. BLOOD SUGAR CHECKED PER PATIENT'S REQUEST WITH RESULT OF 180. PT STATES SHE NO LONGER FEELS DIZZY. CALL LIGHT WITHIN REACH, BED IN LOW POSITION. WILL CONTINUE TO MONITOR.
--- NOTE | 2019-02-07 07:36 | NUR ---
REPORT TAKEN FROM TONE CABINET ASSEMBLER NURSE AT THE BEDSIDE, PT RESTING AT THIS TIME, DENIED ACUTE DISTRESS. WILL CONTINUE TO MONITOR.
[2019-02-07 08:21] LABS: RED CELL DISTRIBUTION WIDTH 25.6 % (11.5-14.5)
[2019-02-07 08:22] LABS: PLATELET COUNT 589 x10^3mcL (130-400)
[2019-02-07 08:49] VITALS: BP 98/58
[2019-02-07 16:35] VITALS: BP 94/66
--- NOTE | 2019-02-07 19:30 | NUR ---
REC'D PT FROM DAY NURSE. PT RESTING IN BED. AAOX4, SPEECH CLEAR, FOLLOWS COMMANDS. MED SURG, NO TELE. DENIES CP, DIZZINESS, OR PALPITATIONS. NO EDEMA NOTED. DENIES RESP DISTRESS OR SOB. BREATHING EVEN/UNLABORED ON RA. ABD SOFT/FLAT. RUQ COLOSTOMY IN PLACE. STOMA BEEFY RED. WATERY AND SEMI-SOLID GREEN STOOL NOTED IN BAG. DAY NURSE STATES PT HAS BEEN EMPTYING COLOSTOMY BAG WITH ASSIST. DRESSINGS TO ABD CDI. DENIES ABD PAIN OR N/V. VOIDING FREELY. GEN WEAKNESS BUT AMBULATORY. IV TO LFA FLUSHED AND PATENT, SITE WNL. CALL LIGHT WITHIN REACH, BED AT LOWEST POSITION. WILL CONTINUE TO MONITOR.
--- NOTE | 2019-02-07 19:40 | NUR ---
REPORT GIVEN TO PHOTOGRAPHY SPOTTER NURSE AT THE BEDSIDE, PT RESTING COMFORTABLY IN NO ACUTE DISTRESS. CARE ENDORSED
[2019-02-07 20:34] VITALS: BP 99/67
--- NOTE | 2019-02-07 21:30 | NUR ---
ASSISTED PT TO EMPTY COLOSTOMY BAG. NOTED WATERY DARK GREEN STOOL WITH SEMI SOLID CHUNKS. PT EMPTIED INDEPENDENTLY. ONLY ASSISTED IN HOLDING CONTAINER TO DUMP STOOL. 200 ML OUT.
--- NOTE | 2019-02-08 02:14 | NUR ---
PT RESTING IN BED WITH EYES CLOSED. LAYING ON R SIDE. NO SIGNS OF DISTRESS NOTED. BREATHING EVEN/UNLABORED ON RA. CALL LIGHT WITHIN REACH, BED AT LOWEST POSITION. WILL CONTINUE TO MONITOR.
--- NOTE | 2019-02-08 04:25 | NUR ---
PT C/O COLOSTOMY BAG LEAKING. LEAKING NOTED TO BOTTOM OF BAG. STATES SHE MIGHT HAVE LAID ON IT WHILE ASLEEP. PT CLEANED UP AND LINENS AND GOWN CHANGED. 50 ML GREEN WATERY STOOL OUT WITH SEMI SOLID CHUNKS. DENIES PAIN AT THIS TIME. WILL CONTINUE TO MONITOR.
[2019-02-08 05:42] VITALS: BP 105/72
--- NOTE | 2019-02-08 06:06 | NUR ---
PT AWAKE AND RESTING IN BED. NO COMPLAINTS AT THIS TIME. DENIES ABD PAIN OR N/V. COLOSTOMY IN PLACE. DRESSINGS TO ABD CDI. NO EPISODES OF N/V. POSSIBLE D/C TODAY WITH HH. NO SIGNIFICANT CHANGES. CALL LIGHT WITHIN REACH, BED AT LOWEST POSITION. WILL ENDORSE TO DAY NURSE.
[2019-02-08 07:13] LABS: BASOPHIL % 1.1 % (0-2)
[2019-02-08 07:15] LABS: CALCIUM 9.5 mg/dL (8.5-10.1); CHLORIDE SERUM 96 mmol/L (98-107); CREATININE SERUM 0.5 mg/dL (0.6-1.0); GFR1 > 60 mL/min; GLUCOSE SERUM 149 mg/dL (74-106); MAGNESIUM 1.8 mg/dL (1.8-2.4); PHOSPHOROUS 2.5 mg/dL (2.5-4.9); POTASSIUM SERUM 4.8 mmol/L (3.5-5.1); SODIUM SERUM 130 mmol/L (136-145)
--- NOTE | 2019-02-08 07:40 | NUR ---
RC'D PT RESTING IN BED WITH NO APPARENT SIGNS OF DISTRESS. A/A/O/X4, SPEECH CLEAR AND APPROPRIATE. DENIES TEE/DIZZINESS. PALP PULSES, NO EDEMA NOTED. RESPIRATIONS EQUAL AND UNLABORED. LUNGS CTA. ON RA, DENIES SOB. ABDOMEN SOFT AND NONTENDER. ACTIVE BS. DENIES N/V. RUQ COLOSTOMY, DARK GREEN DRAINAGE. VOIDS FREELY, DENIES BURNING. SKIN W/D/I. PT DENIES PAIN AT THIS TIME. IV PATENT AND INTACT. BED IN LOW PPOSITION. CALL LIGHT IN REACH. WILL CONTINUE TO MONITOR
[2019-02-08 08:19] LABS: PLATELET COUNT 618 x10^3mcL (130-400); RED CELL DISTRIBUTION WIDTH 25.7 % (11.5-14.5)
--- NOTE | 2019-02-08 09:21 | NUR ---
AM MEDICATIONS GIVEN. PT TOLERATED WELL. RESPIRATIONS EQUAL AND UNLABORED. ON RA, DENIES SOB. PT DENIES PAIN AT THIS TIME. BED IN LOW PSOITION. CALL LIGHT IN REACH. WILL CONTINUE TO MONITOR
[2019-02-08 09:27] VITALS: BP 120/76
--- NOTE | 2019-02-08 11:25 | NUR ---
PT RESTING IN BED WITH NO APPARENT SIGNS OF DISTRESS. RESPIRAITONS EQUAL AND UNLABORED. ON RA, DENIES SOB. PT DENIES PAIN AT THIS TIME. BED IN LOW SPOTIION. CALL LIGHT IN REACH. WILL CONTINUE TO MONITOR
[2019-02-08 12:54] VITALS: BP 120/76
[2019-02-08 14:37] LABS: rbc morphology (normal/abnorm) ABNORMAL (NORMAL)
[2019-02-08 14:38] LABS: acanthocyte (spur cell) 2+; burr cell (echinocyte) 1+; ovalocyte/elliptocyte 2+; schistocyte (helmet cell) 1+
--- NOTE | 2019-02-08 15:50 | NUR ---
PT PROVIDED WITH DC HOME INSTRUCTIONS. PT GIVEN MEDICATION EDUCATION. PT PROVIDED WITH HARD PRESCRIPTIONS. PT INFORMED TO KEEP ABDOMINAL DRESSING CDI. PT INFORMED TO FOLLOW UP WITH HOME HEALTH. PT INFORMED TO REUTRN TO ED OR REPORT TO PCP IF WORSENING S/S WERE TO [place]. PT AND FAMILY VERBALIZED UNDERSTANING OF INTSRUCTIONS. PT PROVIDED SUPPIES FOR ABDOMINAL WOUND. COLOSTOMY WNL. IV REMOVED,CATHETER INTACT. NO REDNESS/INFLAMMATION/DISCOMFORT NOTED. PT TAKEN DOWN TO LOBBY WITH ALL PERSONAL BELONGINGS IN HAND FREE OF ANY APPARENT SIGNS OF DISTRESS.
== END 2019-02-08 16:15 | disposition home health service (06) | DRG 856 ==
LOC: ED 16:05 → MU 20:07 → EDBEDREQSVC 20:09 → EDBEDREQ 21:50 → EDBEDREQSVC 21:50 → MU 22:20
PROVIDERS: General Practice; Internal Medicine; Internal Medicine Gastroenterology; Specialist; ADMIT Family Medicine
PROC: 0DB68ZX Excision of Stomach, Via Natural or Artificial Opening Endoscopic, Diagnostic (ICD-10-PCS; principal; 2019-02-02 14:30)
PROC: 0JB80ZZ Excision of Abdomen Subcutaneous Tissue and Fascia, Open Approach (ICD-10-PCS; 2019-02-03)
PROC: 0DBH0ZZ Excision of Cecum, Open Approach (ICD-10-PCS; 2019-02-03)
DX: T81.43XA Infection following a procedure, organ and space surgical site, initial encounter (principal); A41.9 Sepsis, unspecified organism; E43 Unspecified severe protein-calorie malnutrition; N17.0 Acute kidney failure with tubular necrosis; T81.32XA Disruption of internal operation (surgical) wound, not elsewhere classified, initial encounter; E87.1 Hypo-osmolality and hyponatremia; Z68.1 Body mass index [BMI] 19.9 or less, adult; Y83.8 Other surgical procedures as the cause of abnormal reaction of the patient, or of later complication, without mention of misadventure at the time of the procedure; I10 Essential (primary) hypertension; E86.0 Dehydration; K52.9 Noninfective gastroenteritis and colitis, unspecified; E11.65 Type 2 diabetes mellitus with hyperglycemia; E87.6 Hypokalemia; K26.7 Chronic duodenal ulcer without hemorrhage or perforation; D50.9 Iron deficiency anemia, unspecified; E78.5 Hyperlipidemia, unspecified; Z88.6 Allergy status to analgesic agent; Y92.89 Other specified places as the place of occurrence of the external cause; Z90.49 Acquired absence of other specified parts of digestive tract; Z91.013 Allergy to seafood; Z85.038 Personal history of other malignant neoplasm of large intestine; Z93.3 Colostomy status
CPT/HCPCS: 36600; 43235; 82962; 83880; 84439; 87046; 87046-59; A4371; J0690; J0696; J1170; J1200; J1610; J1815; J1956; J2250; J2310; J2405; J2916; J3010; J3475; J3480; J3490; J7030; J7040; J8597; Q0092; Q9967

== ENCOUNTER 2019-02-16 16:00 | Inpatient (IN) | payer BC ==
[~2019-02-16] VITALS: Ht 154.9 cm; Wt 38.6 kg
[~2019-02-16 16:00] MED LIST changes: +DOXYCYCLINE HY100 MG PO; +ELA10 PO; +FER300 PO; +FLA250 PO; +PROTONIX40 MG/Pac1 PO; +REG5 PO
[2019-02-16 16:20] VITALS: Ht 154.9 cm; Wt 38.6 kg
--- NOTE | 2019-02-16 16:44 | NUR ---
PT AWAKE AND ALERT. PT C/O GENERALIZED WEAKNESS AND N/V SINCE THE BEGINNING OF THE MONTH. PT LOOKS PALE IN APPEARANCE. PT HAS JEJUNOSTOMY. PT PLACED ON FULL CM. PT APPEARS TO BE IN MODERATE DISTRESS. RESP E/U. PT AWAITING MSE IN POSITION OF COMFORT.
[2019-02-16 17:22] LABS: PLATELET COUNT 614 x10^3mcL (130-400); RED CELL DISTRIBUTION WIDTH 23.9 % (11.5-14.5)
[2019-02-16 17:32] LABS: ALBUMIN 3.5 g/dL (3.4-5.0); BILIRUBIN TOTAL 0.31 mg/dL (0.20-1.00); CALCIUM 9.5 mg/dL (8.5-10.1); CARBON DIOXIDE 14.9 mmol/L (21-32); CREATININE SERUM 3.8 mg/dL (0.6-1.0); POTASSIUM SERUM 3.3 mmol/L (3.5-5.1); TOTAL PROTEIN, SERUM 7.3 g/dL (6.4-8.2)
[2019-02-16 17:42] LABS: BAND NEUTROPHIL 5 % (0-10); MONOCYTE 4 % (0-7); SEGMENTED NEUTROPHILS 81 % (37-75)
[2019-02-16 17:44] LABS: ovalocyte/elliptocyte 1+; rbc morphology (normal/abnorm) ABNORMAL (NORMAL)
[2019-02-16 17:45] LABS: PLATELET MORPHOLOGY PLATELETS INCREASED
--- NOTE | 2019-02-16 18:28 | NUR ---
PT MEDICATED PER DOCTORS ORDERS
--- NOTE | 2019-02-16 18:39 | NUR ---
PORTABLE XRAY AT BEDSIDE
--- NOTE | 2019-02-16 19:07 | NUR ---
RECIEVED REPORT FROM EDGAR GARCIA. ASSUMING FURTHER CARE OF PT AT THIS TIME.
--- NOTE | 2019-02-16 19:09 | NUR ---
REPORT GIVEN TO IVET ATHLETIC DIRECTOR NURSE TO ASSUME CARE OF PT
[2019-02-16 20:12] LABS: CHOLESTEROL/HDL RATIO 3.2
--- NOTE | 2019-02-16 20:30 | NUR ---
PT OBSERVED LAYING ON GURNEY IN POSITION OF COMFORT. PT A&0X4, SPEAKING FULL CLEAR SENTENCES. PT IN NAD. BREATHING EVEN AND UNLABORED. CM AND [address] IV FLUIDS RUNNING AT ORDERED RATE. FAMILY AT BEDSIDE. WILL CONITNUE TO MONITOR.
--- NOTE | 2019-02-16 20:55 | NUR ---
REPORT CALLED TO DIETER GARCIA
--- NOTE | 2019-02-16 21:02 | NUR ---
PT TRANSFERED TO TELE AT THIS TIME IN NAD. BREATHING EVEN AND UNLABORED. PT A&0X4, SPEAKING CLEAR SENTENCES, BUT APPEARS DROWSY. PT AND FAMILY VERBALIZED UNDERSTANDING OF PLAN OF CARE. PT PLACED ON TRANSPORT CM MONITOR. PT ACCOMPANIED BY EMT RADHA BREWER, AND FAMILY MEMBER. IV FLUIDS ENDORSED TO DIETER GARCIA. DIETER GARCIA ACKNOWLEDGED.
--- NOTE | 2019-02-16 21:06 | NUR ---
RECEIVED PT VIA GUERNEY FROM E/D, ACCOMPANIED BY RN, TRANSPORTER, AND [id number] (LEONCIO BAIRD). PT A/A/O X 4, CALM, COOPERATIVE, SLOW BUT CLEAR SPEECH; ON SEIZURE PRECAUTIONS 2/2 LOW NA+. ON TELE # 11, ST, HR 125, DENIES CHEST PAIN OR DISCOMFORT AT THIS TIME. LUNGS CTAB, CHEST RISING EVENLY, R/A, 100%, NO ACUTE RESPIRATORY DISTRESS NOTED. ABD SOFT, FLAT, NON-TENDER, NORMOACTIVE BOWEL SOUNDS X 4, JEJUNOSTOMY PRESENT DRAINING BROWN/GREEN LIQUID INTO FECAL BAG, POOR APPETITE, CHOKES ON MEATS, ASPIRATION PRECAUTIONS IN PLACE, ABD W/ 3 SURGICAL WOUNDS (MEDIAL AND RIGHT SITES W/ PACKING), ALL DRESSED W/ ABD PAD, CDI. IV SITE LAC 20G, CDI. ORIENTED PT TO ROOM, BED CONTROLS, CALL LIGHT SYSTEM. PADDED SIDE RAILS UP X 2, BED IN LOW POSITION. WILL ENDORSE TO RADHA TIPTON.
[2019-02-16 22:14] VITALS: BP 100/55
--- NOTE | 2019-02-17 00:07 | NUR ---
ASSISTED PATIENT TO THE BATHROOM AND BACK TO BED. NO DISTRESS NOTED. DENIES PAIN AND CHEST PAIN. BREATHING EVEN ON ROOM AIR. CALL LIGHT IS WITHIN REACH. SIZURE PRECAUTIONS IN PLACE. WILL CONTINUE TO MONITOR.
--- NOTE | 2019-02-17 01:50 | NUR ---
PATIENT IS RESTING WILL EYES CLOSED. NO DISTRESS NOTED. BREATHING EVEN ON ROOM AIR. IV TO THE RIGHT HAND AND LAC BOTH INFUSING WELL. CALL LIGHT IS WITHIN REACH. SEIZURE PRECAUTION IN PLACE. CALL LIGHT IS WITHIN REACH. WILL CONTINUE TO MONITOR.
--- NOTE | 2019-02-17 02:28 | NUR ---
ASSISTED PATIENT TO THE BATHROOM AND BACK TO BED. EDUCATED PATIENT ON NPO STATUS. PATEINT VERBALIZED UNDERSTANDING. NO DISTRESS NOTED. BREATHING EVEN ON ROOM AIR. NO C/O PAIN. PATIENT MADE COMFORTABLE IN BED. CALL LIGHT IS WITHIN REACH. WILL CONTINUE TO MONITOR.
[2019-02-17 05:33] VITALS: BP 110/59
[2019-02-17 06:45] LABS: LIPASE 1188 IU/L (73-393)
[2019-02-17 06:49] LABS: CALCIUM 8.7 mg/dL (8.5-10.1); CARBON DIOXIDE 17.7 mmol/L (21-32); CREATININE SERUM 2.8 mg/dL (0.6-1.0); POTASSIUM SERUM 3.4 mmol/L (3.5-5.1)
[2019-02-17 06:51] LABS: AMYLASE 151 U/L (25-115)
[2019-02-17 06:56] LABS: RED CELL DISTRIBUTION WIDTH 23.5 % (11.5-14.5)
--- NOTE | 2019-02-17 07:04 | NUR ---
PATIENT SLEPT IN LONG INTERVALS THROUGHOUT THE NIGHT. NO ACUTE CHANGES NOTED. BREATHING EVEN ON ROOM AIR. NO DISTRESS NOTED. NO C/O PAIN THROUGHOUT THE NIGHT. IV TO THE RIGHT HAND AND LAC INFUSING WELL. NO REDNESS OR SWELLING NOTED. PATENT AND INTACT. JEJUNOSTOMY DRAINING GREEN/BROWNISH OUTPUT. COMFORT AND SAFETY MEASURES MAINTAINED. CALL LIGHT IS WITHIN REACH. WILL ENDORSE CARE TO DAY SHIFT RN.
--- NOTE | 2019-02-17 07:30 | NUR ---
RECEIVED PT IN BED. ASSESSED AND DOCUMENTED. DENIES PAIN THIS TIME. STABLE. SAFTEY -PRECAUTIONS ARE IN PLACE.
[2019-02-17 07:59] VITALS: BP 112/57
[2019-02-17 08:25] LABS: BAND NEUTROPHIL 1 % (0-10); BASOPHIL 0 % (0-2); MONOCYTE 4 % (0-7); PLATELET MORPHOLOGY PLATELETS INCREASED; SEGMENTED NEUTROPHILS 95 % (37-75)
[2019-02-17 08:26] LABS: rbc morphology (normal/abnorm) ABNORMAL (NORMAL)
[2019-02-17 08:27] LABS: acanthocyte (spur cell) 1+; ovalocyte/elliptocyte 1+
[2019-02-17 08:43] LABS: MAGNESIUM 2.3 mg/dL (1.8-2.4); PHOSPHOROUS 3.3 mg/dL (2.5-4.9)
--- NOTE | 2019-02-17 11:00 | NUR ---
PT IS STABLE, DENIES PAIN. AMBULATING TO RESTROOM WITH ASSIST.
[2019-02-17 12:30] VITALS: BP 99/52
--- NOTE | 2019-02-17 13:00 | NUR ---
PT IS STABLE. HAD LUNCH. DENIES ANY PAIN.
[2019-02-17 13:06] LABS: PLATELET COUNT 535 x10^3mcL (130-400)
[2019-02-17 16:10] VITALS: BP 101/54
--- NOTE | 2019-02-17 17:00 | NUR ---
ABDOMINAL WOUND CLEANED WITH BETADINE AND PACKED WITH IDOFORM DRESSING. MILD PURULANT DRAINAGE NOTED INSIDE THE WOUND BUT NOT DRAINING OUT. DENIES ANY PAIN.
--- NOTE | 2019-02-17 19:10 | NUR ---
PT RESTING IN BED COMFORTABLY. DENIES PAIN THIS TIME. STABLE. GAVE REPORT TO TELECOMMUNICATIONS LINE INSTALLER NURSE.
--- NOTE | 2019-02-17 19:10 | NUR ---
REPORT RECEIVED FROM DAY SHIFT RN. PATIENT WAS SEEN AND IS RESTING COMFORTABLY IN BED. PATIENT STATES SHE FEELS BETTER TODAY. BREATHING EVEN ON ROOM AIR. NO SOB OR RESP DISTRESS NOTED. ABLE TO MAKE NEEDS KNOWN. DENIES CHEST PAIN. NO C/O PAIN. JEJUNOSTOMY TO THE RIGHT ABD WITH BROWNISH/GREEN DRAINAGE. ABD ISLAND DRESSING NOTED TO ABD MIDLINE, CDI. IV TO THE LAC AND RIGHT HAND. PATENT AND INTACT. NO REDNESS OR SWELLING NOTED. SEIZURE PRECAUTIONS IN PLACE AND MAINTAINED. COMFORT AND SAFETY MEASURES MAINTAINED. BED IS LOCKED AND IN THE LOWEST POSITION. PADDED SIDE RAILS UP X2. CALL LIGHT IS WITHIN REACH. INSTRUCTED TO CALL FOR ASSISTANCE. WILL CONTINUE TO MONITOR.
[2019-02-17 20:38] VITALS: BP 102/51
--- NOTE | 2019-02-17 23:15 | NUR ---
PT'S COLOSTOMY BAG FOUND TO BE LEAKING. GOWNS AND LINEN CHANGED. COLOSTOMY BAG CHANGED. MIDLINE ABD INCISION AND R SIDED ABD INCISION DRESSINGS CHANGED, CLEANSED WITH NS AND PAT DRY, BETADINE, GAUZE AND ISLAND DRESSING. PT AMBULATED TO BATHROOM TO URINATE, BACK TO BED WITHOUT INCIDENT. AMBULATORY WITHOUT ASSIST, GAIT SLOW AND STEADY. CALL LIGHT WITHIN REACH. WILL CONTINUE TO MONITOR
--- NOTE | 2019-02-18 02:47 | NUR ---
PATIENT IS RESTING WITH EYES CLOSED. NO DISTRESS NOTED. BREATHING EVEN ON ROOM AIR. IV FLUIDS INFUSING WELL. SEIZURE PRECAUTIONS MAINTAINED. COMFORT AND SAFETY MEASURES. CALL LIGHT IS WITHIN REACH. WILL CONTINUE TO MONITOR.
--- NOTE | 2019-02-18 03:00 | NUR ---
ASSISTED PATIENT TO THE BATHROOM AND BACK TO BED. URINE COLLECTED FOR UA. PATIENT MADE COMFORTABLE IN BED. NO DISTRESS NOTED. BREATHING EVEN. DENIES PAIN. WILL CONTINUE TO MONITOR. CALL LIGHT IS WITHIN REACH.
[2019-02-18 03:33] LABS: UA SPECIFIC GRAVITY 1.015 (1.005-1.035); microscopic required? YES; urine erythrocyte 1+ (NEGATIVE)
--- NOTE | 2019-02-18 03:37 | NUR ---
PATIENT RIGHT HAND IS SLIGHTLY SWOLLEN FROM IV. PATIENT DENIES PAIN. RIGHT HAND IV WAS REMOVED. CATHETER INTACT. WILL CONTINUE TO MONITOR. CALL LIGHT IS WITHIN REACH.
--- NOTE | 2019-02-18 04:00 | NUR ---
INSTRUCTED PATIENT TO ELEVATED RIGHT HAND. APPLIED WARM BLANKET ON HAND WELL. WILL CONTINUE TO MONITOR. SWELLING. CALL LIGHT IS WITHIN REACH.
--- NOTE | 2019-02-18 04:07 | NUR ---
UA RESULT CAME BACK. DR PATTERSON MADE AWARE OF RESULTS. NO NEW ORDERS AT THIS TIME.
--- NOTE | 2019-02-18 05:39 | NUR ---
PATIENT SLEPT IN LONG INTERVALS THROUGHOUT THE NIGHT. NO ACUTE/SIGNIFICANT CHANGES NOTED. BREATHING EVEN ON ROOM AIR. NO DISTRESS NOTED. DENIES CHEST PAIN. NO C/O PAIN THROUHGOUT THE NIGHT. JEJUNOSTOMY NOTED TO LEFT ABD, 400ML OUT, BROWNINSH/GREEN OUTPUT. IV TO THE LAC INFUSING WELL. PATENT AND INTACT. NO REDNESS OR SWELLING NOTED. RIGHT HAND IS STILL A BIT SWOLLEN. ENCOURAGED PATIENT TO ELEVATED HAND. COMFORT AND SAFETY MEASURE MAINTAINED. CALL LIGHT IS WITHIN REACH. SEIZURE PRECAUTIONS IN PLACE. NO SEIZURES NOTED. WILL CONTINUE TO MONITOR AND ENDORSE CARE TO DAY SHIFT RN.
[2019-02-18 06:04] VITALS: BP 115/55
[2019-02-18 06:52] LABS: CALCIUM 8.7 mg/dL (8.5-10.1); CARBON DIOXIDE 15.9 mmol/L (21-32); CREATININE SERUM 2.2 mg/dL (0.6-1.0); MAGNESIUM 2.1 mg/dL (1.8-2.4); PHOSPHOROUS 2.5 mg/dL (2.5-4.9)
--- NOTE | 2019-02-18 07:01 | NUR ---
DR. CORTES AWARE OF RIGHT HAND SWELLING AND LOW URINE OUTPUT
[2019-02-18 07:24] LABS: PLATELET COUNT 455 x10^3mcL (130-400); RED CELL DISTRIBUTION WIDTH 23.5 % (11.5-14.5)
--- NOTE | 2019-02-18 07:25 | NUR ---
RECEIVED PT. IN BED A/A/O X3. NO SOB, NO N/V NOTED. PT. DENIES ANY PAIN AT THIS TIME. NS RUNNING AT 70 CC/HR VIA IV SITE AT L AC. SCD TO BLE MAINTAINED. BED IN LOW POS., CALL LIGHT WITHIN REACH. SIDE RAILS UP X3.
[2019-02-18 07:50] LABS: POTASSIUM SERUM 2.5 mmol/L (3.5-5.1)
[2019-02-18 09:09] LABS: AMYLASE 83 U/L (25-115); LIPASE 546 IU/L (73-393)
--- NOTE | 2019-02-18 10:00 | NUR ---
CLEANSED OPEN WOUNDS TO UPPER MID-ABDOMEN, LOWER MID-ABDOMEN, AND RLQ OF ABDOMEN WITH BETADINE. IODOFOAM PACKING APPLIED TO WOUND SITES BEFORE COVERING WITH DRY DRESSINGS. WOUND ISLAND DRESSING WAS APPLIED ON TOP OF DRY DRESSINGS THAT COVER UPPER AND LOWER MID-ABD. WOUNDS. MINIMAL AMT. OF PURULENT FLUID NOTED AT WOUND SITES. ALSO CLEANSED COLOSTOMY TO RUQ OF ABDOMEN WITH SOAP AND WATER. COLOSTOMY BAG CHANGED.
[2019-02-18 10:02] VITALS: BP 111/55
[2019-02-18 12:25] LABS: BAND NEUTROPHIL 2 % (0-10); BASOPHIL 0 % (0-2); MONOCYTE 2 % (0-7); SEGMENTED NEUTROPHILS 90 % (37-75)
[2019-02-18 12:28] LABS: PLATELET MORPHOLOGY PLATELETS INCREASED; rbc morphology (normal/abnorm) ABNORMAL (NORMAL); target cell (codocyte) 1+
[2019-02-18 13:30] VITALS: BP 101/56
[2019-02-18 17:24] VITALS: BP 103/53
--- NOTE | 2019-02-18 18:58 | NUR ---
REMAINS IN STABLE CONDITION AT THIS TIME. WILL CONTINUE TO MONITOR. STOOL IN COLOSTOMY APPEARS GREEN AND SOFT AT THIS TIME.
--- NOTE | 2019-02-18 19:30 | NUR ---
RECEIVED PT RESTING IN BED, NO ACUTE DISTRESS NOTED. FAMILY AT BEDSIDE. AOX4, DENIES TEE/DIZZINESS. TELE #11, NSR DENIES CP. PULSES PALPABLE BILAT, DENIES NUMBNESS/TINGLING IN FEET. PT HAS SWELLING NOTED TO RT HAND D/T INFILTRATED IV. ENCOURAGED PT TO ELEVATE TO ALLOW GRAVITY TO REDISTRIBUTE THE FLUID. PT VERBALIZES UNDERSTANDING. RESP EVEN AND UNLABORED ON RA, DENEIS SOB. PT S/P COLECTOMY (02/03/19) W/ TRANSVERSE COLOSTOMY IN PLACE. PT DRAINING LIQUID/SOFT STOOL. PT TOLERATING MECH SOFT CHOPPED DIET WELL. PT WITH MIDLINE SURGICAL INCISION TO ABD CLEANSED WITH BETADINE, PACKED WITH IODOFORM, COVERED WITH 4X4 AND SECURED WITH ISLAND DSG. CDI. PT WITH OLD HEALED SURGICAL INCISION TO LEDFT ABD MICK, CDI. PT VOIDS W/O DUYSURIA. GENERALIZED WEAKNESS AMB W/ STAND BY ASSIST. IV SITE TO LAC NS @ 70ML/HR. NO REDNESS, SWELLING OR PAIN NOTED. ALL COMFORT AND SAFETY MEASURES PROVIDED FOR, CALL LIGHT WITHIN REACH, BED IN LOWEST POSITION, WILL CONTINUE TO MONITOR.
[2019-02-18 22:01] VITALS: BP 95/55
--- NOTE | 2019-02-19 02:30 | NUR ---
PERFOMED DSG CHANGE PER ORDER D/T COLOSTOMY BAG LEAKED AND SATURATED ABD INCISION DSG. REMOVED OLD DSG'S, CLEANSED SKIN WITH WARM SOAP AND WATER, PADDED DRY. CLEASNED WOUNDS WITH BETADINE PER ORDER, PACKED WITH IODOFORM IN SMALL RT SIDED ABD INCISION. COVERED WITH GUAZE AND COVERED WITH SMALL ISLAND DSG. APPLIED NONSTING BARRIER GAURD TO SKIN. ALLOWED TO DRY. SIZED COLOSTOMY BAG TO STOMA (PER PT, SHE IS A 32MM) SECURED COLOSTOMY BAG TO ABD. APPLED BETADINE TO LARGE ABD INCISION PER ORDER, PACKED WITH IODOFORM, COVERED WITH GAUZE AND SECURED WITH ISLAND DSG. PT TOLERATED WELL. ALL COMFORT AND SAFETY MEASURES PROVIDED FOR, CALL LIGHT WITHIN REACH, BED IN LOWEST POSITION, WILL CONTINUE TO MONITOR.
--- NOTE | 2019-02-19 05:15 | NUR ---
PT RESTED IN INTERVALS DURING SHIFT, NO ACUTE CHANGES OCCURRING OVERNIGHT. PT AMBULATED TWICE TO THE RESTROOM WITH SLOW BUT STEADY GAIT. NURSE WITH STAND BY ASSIST. PT DENIES DIZZINESS/LIGHTHEADEDNESS. PT DENIES N/V. COLOSTOMY BAG IN PLACE TO RT ABD. SEMI FORMED STOOL NOTED. ALL COMFORT AND SAFETY MEASURES PROVIDED FOR, CALL LIGHT WITHIN REACH, BED INLOWEST POSITION, WILL CONTINUE TO MONITOR.
[2019-02-19 05:18] VITALS: BP 133/67
[2019-02-19 06:21] LABS: CALCIUM 8.6 mg/dL (8.5-10.1); CARBON DIOXIDE 15.9 mmol/L (21-32); CREATININE SERUM 1.6 mg/dL (0.6-1.0); MAGNESIUM 1.6 mg/dL (1.8-2.4); PHOSPHOROUS 2.2 mg/dL (2.5-4.9); POTASSIUM SERUM 3.2 mmol/L (3.5-5.1)
[2019-02-19 06:33] LABS: PLATELET COUNT 421 x10^3mcL (130-400); RED CELL DISTRIBUTION WIDTH 24.7 % (11.5-14.5)
--- NOTE | 2019-02-19 08:06 | NUR ---
ALL CARE ENDORSED TO DAYSHIFT NURSE, NO ACUTE DISTRESS NOTED, ALL COMOFRT AND SAFETY MEASURES PROVIDED FOR, ALL QUESTIONS AND CONCERNS ADDRESSED, CALL LIGHT WITHIN REACH, BED IN LOWEST POSITION.
--- NOTE | 2019-02-19 08:11 | NUR ---
A+OX4, NO RESPIRATORY DISTRESS NOTED, SZ PRECAUTIONS, TELE 11, PULSES MODERATE AND EQUAL COLLINS, R HAND SWELLING, LUNG SOUNDS CTA, TOLERATING RA, BOWEL SOUNDS ACTIVE, COLOSTOMY BAG TO R ABD DRAINING FORMED STOOL, VOIDING FREELY, GENERALIZED WEAKNESS, AMBUALTORY WITH ASSIST, L ABD WOUND WITH IODOFORM PACKING COVERED WITH ISLAND DRESSING CDI, R ABD WOUND WITH DRESSING CDI, IV IN LAC WITH NS @ 70 ML/HR.
--- NOTE | 2019-02-19 10:03 | NUR ---
ASSISTED PT TO BATHROOM AND BACK TO BED, NO RESPIRATORY DSITRESS NOTED, DENIES PAIN, CALL LIGHT WITHIN REACH. DR WALTERS AND MED TEAM AT BEDSIDE TO SPEAK TO PT AND FAMILY.
[2019-02-19 10:05] VITALS: BP 95/59
[2019-02-19 12:44] VITALS: BP 126/65
--- NOTE | 2019-02-19 13:03 | NUR ---
ASSISTED PT TO BATHROOM AND BACK TO BED, NO RESPIRATORY DSITRESS NOTED, DENIES PAIN, CALL LIGHT WIOTHIN REACH, ASSISTED WITH LUNCH TRAY SETUP.
[2019-02-19 13:24] LABS: BAND NEUTROPHIL 1 % (0-10); BASOPHIL 0 % (0-2); MONOCYTE 2 % (0-7); PLATELET MORPHOLOGY PLATELETS INCREASED; SEGMENTED NEUTROPHILS 90 % (37-75)
[2019-02-19 13:25] LABS: ovalocyte/elliptocyte 2+; rbc morphology (normal/abnorm) ABNORMAL (NORMAL)
--- NOTE | 2019-02-19 13:52 | NUR ---
COLOSTOMY BAG EMPTIED, 150 ML LOOSE GREEN STOOL, NO RESPRIATORY DSITRESS NOTED, DENEIS PAIN, CALL LIGHT WITHIN REACH.
--- NOTE | 2019-02-19 14:11 | NUR ---
1. Recommend changing diet to CCHO (mechanically soft-chopped) d/t A1C 9.1 2.Glucerna TID for poor PO.
--- NOTE | 2019-02-19 14:11 | NUR ---
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 Pt underwent partial colectomy with Dr. Marina in January,. After discharge pt was instructed to find an oncologist and follow up with him but pt hasn't done so yet. RDN visit(02/19): pt said that her appetite is poor but she doesn't have any N/V currently. Pt said that she has had unintentional weight loss and weight 94# 3 weeks ago during her recent admission to this hospital. Pt is willing to consume nutritional supplement. Paged Dr. Smith to discuss recommendations, waiting for call back. PageGate Dr. Smith with recommendations. Problem with: N: no V: no D/C: colostomy Problems with: Chewing/Swallowing: none Current appetite: poor Recent wt change: 9# in 3 weeks %wt change: 9.6% in 3 weeks (significant) Vitamin/Supplement use: gummy without sugar Special diet at home: regular, chopped food. Physical activity: unable to access Education: Patient received Diabetic diet education during recent hospitalization and did not have any questions at this time. Estimated Nutritional Needs Based on actual body weight 38.5 kg Energy: 7823-3227 kcal/d (35-40 kcal/kg-weight gain) Protein: 48-58 g/d (1.0-1.2 g/kg IBW)-maintenance and preservation of lean body mass Fluid: 1383-8614 ml/d (1 ml/kcal-fluid balance) or per doctor Nutrition Diagnosis 1. Unintentional weight loss related to poor PO, medical condition as evidenced by self-reported weight loss of 9.6% x 3 weeks. 2. Malnutrition related to poor PO, weight loss as evidenced by BMI 16.1 kg/m2 Intervention 1. Recommend changing diet to CCHO (mechanically soft-chopped) d/t A1C 9.1 2.Glucerna TID for poor PO. Monitor/Evaluate Goal: PO intake at least 75% of estimated needs Monitor: PO intake, Labs, GI function F/U in 2-3 days as high risk 02/21-
--- NOTE | 2019-02-19 15:15 | NUR ---
ASSISTED PT TO BATHROOM AND BACK TO BED, NO RESPRIATORY DSITRESS NOTED, DENIES PAIN, CALL LIGHT WITHIN REACH.
[2019-02-19 18:38] VITALS: BP 137/59
--- NOTE | 2019-02-19 18:38 | NUR ---
COLOSTOMY BAG CHANGED, L SURGICAL WOUND CLEANED WITH BETADINE, PACKED WITH IODOFORM, COVERED IN GAUZE, COVERED IN ISLAND DRESSING, R SURGICAL WOUND CLEANSED WITH BETADINE AND COVERED WITH ISLAND DRESSING. ASSISTED PT TO BATHROOM AND BACK TO BED, LINENS AND GOWN CHANGED.
--- NOTE | 2019-02-19 19:25 | NUR ---
RECEIVED PT LAYING IN BED, NO ACUTE DISTRESS OBSERVED. DENIES PAIN OR DISCOMFORT. R SIDE COLOSTOMY IN PLACE, FOUND TO BE LEAKING. GOWN AND LINENS CHANGED. ABD DRESSINGS X2 CHANGED. COLOSTOMY BAG CHANGED, STOMA PINK AND WNL. ABD SOFT AND FLAT WITH ACTIVE BOWEL SOUNDS, DENIES N/V. DARK GREEN LOOSE AND WATERY STOOL OUTPUT NOTED TO COLOSTOMY SITE. AA/OX4, ABLE TO MAKE NEEDS KNOWN, SPEECH SLOW AND APPROPRIATE, SEIZURE PRECAUTIONS IN PLACE. NSR TO TELE #11, NO CP. PULSES PRESENT AND EQUAL THROUGHOUT, NO EDEMA. BREATHING ON RA, EVEN AND UNLABORED, NO SOB OR DYSPNEA OBSERVED, LUNGS DIM TO RIGHT SIDE, O2 SAT 98% FREELY VOIDS URINE. AMBULATORY WITH MIN ASSIST, UP WITH P.T., ABLE TO TURN AND REPOSITION SELF IN BED. IV TO LAC IN PLACE, DRY, PATENT, INTACT, AND INFUSING IVF WELL, NO PAIN, REDNESS OR SWELLING NOTED. COMFORT AND SAFETY MEASURES IN PLACE. ALL NEEDS ASSESSED AND ATTENDED TO. CALL LIGHT WITHIN REACH. WILL CONTINUE TO MONITOR
[2019-02-19 20:58] VITALS: BP 110/61
--- NOTE | 2019-02-19 22:20 | NUR ---
PT'S IV SITE TO RAC FOUND TO BE LEAKING WHEN FLUSHED WITH NS, REMOVED WITH CATH INTACT. NEW IV STARTED TO RFA, #22G, FLUSHED WELL WITH GOOD BLOOD RETURN. RECONNECTED TO IVF ORDERED.
--- NOTE | 2019-02-20 06:09 | NUR ---
150 ML DARK GREEN WATERY OUTPUT WITH CHUNKS OF SOFT FORMED STOOL EMPTIED FROM COLOSTOMY BAG THIS AM. NO OTHER SIGNIFICANT CHANGES TO REPORT, PT COMPLIED WITH NURSING CARE THROUGHOUT THE SHIFT WITH NO ACUTE EVENTS OVERNIGHT. NO ACUTE DISTRESS OBSERVED AT THIS TIME, PT LAYING IN BED, BREATHING EVEN AND UNLABORED, AROUSABLE TO VERBAL STIMULI, DENIES PAIN OR DISCOMFORT. COMFORT AND SAFETY MEASURES MAINTAINED. ALL NEEDS ASSESSED AND ATTENDED TO. CALL LIGHT WITHIN REACH. WILL CONTINUE TO MONITOR AND ENDORSE CARE TO DAY SHIFT NURSE
[2019-02-20 06:14] VITALS: BP 116/66
[2019-02-20 06:54] LABS: PLATELET COUNT 467 x10^3mcL (130-400); RED CELL DISTRIBUTION WIDTH 24.6 % (11.5-14.5)
[2019-02-20 07:00] LABS: CALCIUM 9.2 mg/dL (8.5-10.1); CARBON DIOXIDE 16.8 mmol/L (21-32); MAGNESIUM 1.7 mg/dL (1.8-2.4); PHOSPHOROUS 2.3 mg/dL (2.5-4.9)
[2019-02-20 07:03] LABS: POTASSIUM SERUM 2.7 mmol/L (3.5-5.1)
--- NOTE | 2019-02-20 07:10 | NUR ---
K 2.[address] ALMAZAN.
--- NOTE | 2019-02-20 07:57 | NUR ---
A+OX4, NO RESPRIATORY DSITRESS NOTED, SZ PRECAUTIONS, TELE 11, PULSES MODERATE AND EQUAL COLLINS, LUNG SOUNDS DIMINISHED, COLOSTOMY TO R SIDE CDI DRAINING LOOSE GREEN STOOL, VOIDING FREELY, GENERALIZED WEAKNESS, AMBULATORY WITH ASSIST, MID ABD INCISION PARTLY DEHISED WITH IODOFORM PACKING, COVERED IN GAUZE AND ISLAND DRESSING CDI, RLQ ABD INCISION WITH IODOFORM PACKING, GAUZE, AND ISLAND DRESSING, L ABD INCISION MICK, IV IN RFA WITH NS @ 70 ML/HR, SITE WNL.
[2019-02-20 09:58] VITALS: BP 103/46
[2019-02-20 10:08] LABS: BAND NEUTROPHIL 1 % (0-10); BASOPHIL 0 % (0-2); MONOCYTE 2 % (0-7); SEGMENTED NEUTROPHILS 90 % (37-75)
[2019-02-20 10:10] LABS: ovalocyte/elliptocyte 2+; rbc morphology (normal/abnorm) ABNORMAL (NORMAL)
[2019-02-20 10:11] LABS: PLATELET MORPHOLOGY PLATELETS INCREASED; schistocyte (helmet cell) 2+
--- NOTE | 2019-02-20 12:34 | NUR ---
WOUND CARE EVALUATION NOT DONE AT THIS TIME FOR SURGICAL WOUNDS, PER PRIMARY RN SURGEON EVALUATION AND PACK THE WOUNDS THIS MORNING AND SURGEON WILL CONTINUE TO FOLLOW UP. PER PT."DON'T TOUCH THE DRESSING, DOCTOR WILL COME BACK IN 2 DAYS? RLQ ABD COLOSTOMY FUNCTIONING, COLOSTOMY BAG IN PLACE NO LEAKAGE NOTICE. PER PT. HAVING A DIFFICULTY TIME ADAPT LIFE STYLE CHANGE WITH COLOSTOMY, RESOURCE INFORMATION PROVIDES. PT. VERBALIZES UNDERSTANDING.
--- NOTE | 2019-02-20 12:45 | NUR ---
ASSISTED PT TO SIT AT EDGE OF BED, ASSISTED PT WITH LUNCH TRAY SETUP, NO RESPIRATORY DSITRESS NOTED, DENIES PAIN. PER PT, DR VORA CHANGED MID ABD INCISION DRESSING AND RLQ INCISION DRESSING AT BEDSIDE. CALL LIGHT WITHIN REACH.
[2019-02-20 12:56] VITALS: BP 112/67
--- NOTE | 2019-02-20 15:05 | NUR ---
ASSISTED PT TO SIT IN CHAIR AT BEDSIDE, NO RESPIRATORY DSITRESS NOTED, DENIES PAIN, CALL LIGHT WITHIN REACH.
[2019-02-20 17:36] VITALS: BP 108/62
--- NOTE | 2019-02-20 17:39 | NUR ---
PT RESTING IN BED, NO RESPIRATORY DSITRESS NOTED, DENIES PAIN, CALL LIGHT WITHIN REACH.
--- NOTE | 2019-02-20 18:09 | NUR ---
PER BARK TANNER LIANET, PT INSURANCE WILL ONLY COVER 40% OF SNF COST. PT STATES SHE DOES NOT WANT TO GO TO SNF AND WILL GO HOME.
--- NOTE | 2019-02-20 19:40 | NUR ---
RECEIVED PT LAYING IN BED, NO ACUTE DISTRESS OBSERVED. DENIES PAIN OR DISCOMFORT. R SIDE COLOSTOMY IN PLACE, STOMA PINK AND WNL. ABD SOFT AND FLAT WITH ACTIVE BOWEL SOUNDS, DENIES N/V. DARK GREEN LOOSE AND WATERY STOOL OUTPUT NOTED TO COLOSTOMY SITE. AA/OX4, ABLE TO MAKE NEEDS KNOWN, SPEECH SLOW AND APPROPRIATE, SEIZURE PRECAUTIONS IN PLACE. NSR TO TELE #11, NO CP. PULSES PRESENT AND EQUAL THROUGHOUT, NO EDEMA. BREATHING ON RA, EVEN AND UNLABORED, NO SOB OR DYSPNEA OBSERVED, LUNGS DIM TO RIGHT SIDE, O2 SAT 100% FREELY VOIDS URINE. AMBULATORY WITH MIN ASSIST, UP WITH P.T., ABLE TO TURN AND REPOSITION SELF IN BED. IV TO RFA IN PLACE, DRY, PATENT, INTACT, AND INFUSING IVF WELL, NO PAIN, REDNESS OR SWELLING NOTED. COMFORT AND SAFETY MEASURES IN PLACE. ALL NEEDS ASSESSED AND ATTENDED TO. CALL LIGHT WITHIN REACH. WILL CONTINUE TO MONITOR
[2019-02-20 21:18] VITALS: BP 108/63
--- NOTE | 2019-02-20 21:35 | NUR ---
PT REQUESTED FOR COLOSTOMY BAG TO BE EMPTIED, 350 ML WATERY LOOSE GREEN OUTPUT
--- NOTE | 2019-02-21 00:56 | NUR ---
PT REQUESTED FOR COLOSTOMY BAG TO BE EMPTIED. 300 ML GREEN WATER OUTPUT NOTED
[2019-02-21 06:17] VITALS: BP 151/76
[2019-02-21 06:44] LABS: CALCIUM 9.5 mg/dL (8.5-10.1); CARBON DIOXIDE 16.8 mmol/L (21-32); CHLORIDE SERUM 107 mmol/L (98-107); CREATININE SERUM 0.8 mg/dL (0.6-1.0); GFR1 > 60 mL/min; GLUCOSE SERUM 169 mg/dL (74-106); MAGNESIUM 1.3 mg/dL (1.8-2.4); PHOSPHOROUS 2.1 mg/dL (2.5-4.9); POTASSIUM SERUM 4.9 mmol/L (3.5-5.1); SODIUM SERUM 140 mmol/L (136-145)
--- NOTE | 2019-02-21 07:15 | NUR ---
RECEIVED BEDSIDE REPORT FROM LEADER WRITER NURSE AT THIS TIME. PATIENT RESTING COMFORTABLY IN BED AT THIS TIME. NO APPARENT DISTRESS OR DISCOMFORT NOTED. BREATHING EVEN AND UNLABORED. NO RESPIRATORY DISTRESS NOTED. PATIENT DENIES CHEST PAIN AT THIS TIME. TELE [address] DRESSING TO MID ABD AND RLQ CLEAN DRY AND INTACT. RIGHT SIDED COLOSTOMY NOTED WITH DARK GREEN LOOSE STOOLS. ALL QUESTIONS AND CONCERNS ADDRESSED. ALL NEEDS ATTENDED TO. WILL CONTINUE TO MONITOR
[2019-02-21 07:47] LABS: PLATELET COUNT 543 x10^3mcL (130-400); RED CELL DISTRIBUTION WIDTH 25.6 % (11.5-14.5)
[2019-02-21 09:00] VITALS: BP 112/62
[2019-02-21 09:06] LABS: BAND NEUTROPHIL 1 % (0-10); BASOPHIL 0 % (0-2); MONOCYTE 6 % (0-7); SEGMENTED NEUTROPHILS 79 % (37-75)
[2019-02-21 09:07] LABS: PLATELET MORPHOLOGY PLATELETS INCREASED
[2019-02-21 09:08] LABS: ovalocyte/elliptocyte 2+; rbc morphology (normal/abnorm) ABNORMAL (NORMAL)
--- NOTE | 2019-02-21 09:15 | NUR ---
SPOKE TO AYANNA ENGLAND REGARDING PHOSLO ORDER. REPORTED PATIENT PHOS 2.1. PER SAMANTA TELEPHONE ORDER OKAY TO D/C ORDER.TELEPHONE ORDER REPEATED, CONFIRMED AND FOLLOWED THROUGH. WILL CONTINUE TO MONITOR
--- NOTE | 2019-02-21 10:00 | NUR ---
ALL MORNING MEDICATIONS ADMINISTERED. PATIENT TOLERATED ADMINISTRATION WELL. NO ADVERSE EFFECTS NOTED. NO APPARENT DISTRESS OR DISCOMFORT NOTED. COLOSTOMY BAG EMPTIED 350ML DARK GREEN LOOSE STOOL OUT. ALL NEEDS ATTENDED TO. WILL CONTINUE TO MONITOR
[2019-02-21] MEDS ORDERED: LEVAQUIN750 MG PO (10:59)
[2019-02-21] MEDS ORDERED: ZOF4 PO (11:02)
[2019-02-21] MEDS ORDERED: AMOXICILLIN875 MG PO (11:18)
--- NOTE | 2019-02-21 11:38 | NUR ---
BLOOD SUGAR IS 288 AT THIS TIME. 9 UNITS OF INSULIN COVERAGE REQUIRED. NO APPARENT DISTRESS OR DISCOMFORT NOTED. ALL NEEDS ATTENDED TO. WILL CONTINUE TO MONITOR
[2019-02-21 11:50] VITALS: BP 112/62
--- NOTE | 2019-02-21 12:54 | NUR ---
PATIENT SITTING UP IN CHAIR AND IS EATING LUNCH AT THIS TIME. PATIENT TOLERATING DIET WELL. NO APPARENT DISTRESS OR DISCOMFORT NOTED. ALL NEEDS ATTENDED TO. WILL CONTINUE TO MONITOR.
--- NOTE | 2019-02-21 13:49 | NUR ---
DRESSING TO ABD CHANGED AT THIS TIME WITH RESOURCE NURSE ODELL. ABD WOUNDS SWABBED WITH BETADINE SWAB AND THEN REPACKED WITH IODOFORM PACKING.PATIENT TOLERATED WELL. DRESSING CDI. WILL CONTINUE TO MONITOR
[2019-02-21 14:08] VITALS: BP 129/66
--- NOTE | 2019-02-21 15:47 | NUR ---
PATIENT STABLE TO BE DISCHARGED TO HOME. DISCHARGE INSTRUCTIONS GIVEN WELL EDUCATION. INSTRUCTED PATIENT ABOUT FOLLOW UP APPOINTMENT. PATIENT VERBALIZES UNDERSTANDING. IV REMOVED WITH CATH INTACT. TELE MONITOR REMOVED ADN RETURNED TO TELE. ALL BELONGINGS WITH PATIENT. ALL QUESTIONS AND CONCERNS ADDRESSED. ALL NEEDS ATTENDED. AWAITING PATIENT TRANSPORTATION AT THIS TIME. WILL CONTINUE TO MONITOR
--- NOTE | 2019-02-21 16:55 | NUR ---
BLOOD SUGAR IS 231 AT THIS TIME. 6 UNITS OF INSULIN COVERAGE REQUIRED. NO APPARENT DISTRESS OR DISCOMFORT NOTED. ALL NEEDS ATTENDED TO. WILL CONTINUE TO MONITOR
--- NOTE | 2019-02-21 17:05 | NUR ---
PATIENT ESCORTED DOWN TO LOBBY BY BINDER STRIPPER HAND AT THIS TIME. ALL PERSONAL BELONGINGS WITH PATIENT. ALL QUESTIONS AND CONCERNS ADDRESSED. ALL NEEDS ATTENDED TO.
== END 2019-02-21 17:03 | disposition home health service (06) | DRG 871 ==
LOC: ED 16:00 → DU 19:33
PROVIDERS: Emergency Medicine; Internal Medicine; ADMIT Family Medicine
DX: A41.9 Sepsis, unspecified organism (principal); K85.90 Acute pancreatitis without necrosis or infection, unspecified; G93.41 Metabolic encephalopathy; N17.0 Acute kidney failure with tubular necrosis; J69.0 Pneumonitis due to inhalation of food and vomit; E87.1 Hypo-osmolality and hyponatremia; I10 Essential (primary) hypertension; E11.65 Type 2 diabetes mellitus with hyperglycemia; Z88.6 Allergy status to analgesic agent; Z91.013 Allergy to seafood; Z85.038 Personal history of other malignant neoplasm of large intestine; E83.42 Hypomagnesemia; Z80.0 Family history of malignant neoplasm of digestive organs; E78.1 Pure hyperglyceridemia; D50.9 Iron deficiency anemia, unspecified
CPT/HCPCS: 82962; 97116-GP; 97530-GP; J0456; J0696; J1815; J1956; J2405; J2543; J2765; J3475; J3480; J3490; J7030; J7040; J7050; J8597; Q0092